=== PATIENT | female | born 1955 | race Caucasian/White ===

== ENCOUNTER 2022-01-28 16:15 | Outpatient (REF) | payer MEDICARE, MEDICAID, SELFPAY | END 2022-01-28 16:16 | disposition home or self-care (01) | LOC: HO.LNP 16:15 | PROVIDERS: Visit Provider Surgery | DX: S81.802D Unspecified open wound, left lower leg, subsequent encounter (principal) | CPT/HCPCS: 87071; 87077; 87186; 87205 ==

== ENCOUNTER 2022-09-09 14:51 | Inpatient (IN) | payer MEDICARE, MEDICAID, SELFPAY ==
--- NOTE | ~2022-09-09 | CT_ITS ---
EXAMINATION: CT ABDOMEN AND PELVIS WITHOUT CONTRAST CLINICAL INFORMATION: Vaginal bleeding COMPARISON: None TECHNIQUE: Multidetector volumetric imaging was performed from the superior aspect of the liver through the pubic symphysis. Sagittal and coronal reformatted images were obtained on the technologist's workstation. This CT examination was performed using dose optimization techniques as appropriate, variously including the following: *Automated exposure control *Adjustment of mA and/or kV according to patient size (this includes techniques or standardized protocols for targeted exams where dose is matched to indication/reason for exam; i.e. extremities or head) *Use of iterative reconstruction technique DLP: 1343 mGy-cm FINDINGS: Visualized lung bases demonstrate mild dependent atelectasis. The liver is mildly enlarged and demonstrates diffusely decreased attenuation suggesting hepatic steatosis. The gallbladder is surgically absent. The spleen is mildly enlarged measuring 16.3 cm in maximum AP dimension. Fatty atrophy of the pancreas. The adrenal glands are unremarkable. Symmetrically sized kidneys. No renal calculi or hydronephrosis of either kidney. The stomach is decompressed. Normal caliber loops of small and large bowel. Normal appendix. Normal caliber abdominal aorta demonstrating mild to moderate atherosclerotic disease. No retroperitoneal lymphadenopathy. Tiny fat-containing umbilical hernia. Soft tissue density within the fat of the left ventral abdominal wall is nonspecific but suspected to be injection related. The bladder is normal in appearance. Uterus is atrophic but otherwise unremarkable in appearance. No gross free pelvic fluid. No inguinal lymphadenopathy. Moderate diffuse degenerative changes of the spine. Severe degenerative changes of the right hip with severe deformity of the femoral head. There are moderate degenerative changes of the left hip. CT/CT abdomen pelvis wo IV con IMPRESSION: 1. Hepatosplenomegaly with diffusely decreased liver attenuation suggesting hepatic steatosis. Correlation with liver enzymes recommended. 2. Severe degenerative changes of the right hip with moderate degenerative changes of the left hip. Fleischner guidelines were followed.
--- NOTE | ~2022-09-09 | US_ITS ---
EXAMINATION: US PELVIS CLINICAL INFORMATION: Postmenopausal bleeding COMPARISON: None TECHNIQUE: Ultrasound of the pelvis is performed using both transabdominal and transvaginal transducers along with Doppler. Transvaginal imaging terminated prematurely. FINDINGS: Uterus: The uterus is anteverted and measures 6.8 x 2.7 x 4.8 cm. The double wall endometrial thickness is 0.9 mm. The uterus is smooth in contour and has normal myometrial echogenicity. No visible fibroid. Adnexa: The left ovary was not identified sonographically. The right ovary was unremarkable in appearance. No adnexal mass.. There is no pelvic ascites or fluid collection. Right ovary measures 1.8 x 1.4 x 1.6 cm. US/US pelvic and transvaginal IMPRESSION: Endometrium measures 0.9 cm in thickness on transabdominal views. Given provided history of postmenopausal bleeding, recommend gynecologic referral and management. Right ovary was unremarkable in appearance. The left ovary was not identified sonographically. No adnexal mass.
[2022-09-09 15:30] VITALS: BP 117/78; BP 98/42; PULSE 82; PULSE 83; RESP 18; TEMP 36.6; O2SAT 94; O2SAT 99; BMI 62.5
[2022-09-09 15:35] VITALS: BP 97/51; PULSE 83; RESP 14; TEMP 36.4; O2SAT 96
--- NOTE | 2022-09-09 15:45 | ED.FEMALEGU ---
HPI - Female Genitourinary General Chief complaint: Urogenital-Female Stated complaint: DIZZY,VAGINAL BLEEDING Time Seen by Provider: 09/09/22 15:16 Source: patient and EMS Mode of arrival: EMS Limitations: other (Poor historian, memory issues) History of Present Illness HPI Narrative: Patient comes in the emergency room from short-term rehab. The staff reported that they noticed that the patient had vaginal bleeding versus rectal bleeding. Patient states that she is asymptomatic. Patient states that she did not notice any vaginal or rectal blood. However, the staff at the nursing facility reported seeing blood in the patient's depends. Related Data Home Medications Medication Instructions Recorded Confirmed Lactobacillus 1 cap PO BID 09/09/22 09/09/22 acidophilus-Bifidobac.animalis 32 billion cell capsule (Probizen) acetaminophen 325 mg tablet 650 mg PO Q4H PRN pain/fever 09/09/22 09/09/22 acetaminophen 650 mg rectal 650 mg WV Q4H PRN pain/fever 09/09/22 09/09/22 suppository biotin 1,000 mcg chewable tablet 1,000 mcg PO DAILY 09/09/22 09/09/22 bisacodyl 10 mg rectal suppository 10 mg WV Q24H PRN Constipation 09/09/22 09/09/22 cholecalciferol (vitamin D3) 25 25 mcg PO DAILY 09/09/22 09/09/22 mcg (1,000 unit) tablet daptomycin 500 mg intravenous 700 mg IV Q48H 09/09/22 09/09/22 solution diclofenac sodium 75 mg 75 mg PO BID 09/09/22 09/09/22 tablet,delayed release duloxetine 60 mg capsule,delayed 60 mg PO DAILY 09/09/22 09/09/22 release epinephrine 1 mg/mL injection kit 0.3 mg IM Q20M PRN Allergic 09/09/22 09/09/22 Symptoms glucagon 1 mg solution for 1 mg subcut Q20M PRN bs<70 and 09/09/22 09/09/22 injection unresponsive hydromorphone 4 mg tablet 8 mg PO Q4H PRN Pain (Scale Score 09/09/22 09/09/22 7-10) indapamide 1.25 mg tablet 1 tab PO DAILY 09/09/22 09/09/22 lactulose 10 gram/15 mL oral 20 g PO Q24H PRN Constipation 09/09/22 09/09/22 solution levothyroxine 175 mcg tablet 175 mcg PO SUMOTUWETHFR@0630 09/09/22 09/09/22 levothyroxine 175 mcg tablet 262.5 mcg PO SA@0630 09/09/22 09/09/22 magnesium hydroxide 400 mg/5 mL 30 ml PO Q24H PRN Constipation 09/09/22 09/09/22 oral suspension (Milk of Magnesia) magnesium oxide 400 mg PO BEDTIME 09/09/22 09/09/22 meclizine 25 mg tablet 25 mg PO BID PRN Nausea And 09/09/22 09/09/22 Vomiting multivitamin 1 tab PO DAILY 09/09/22 09/09/22 naloxone 4 mg/actuation nasal spray 4 mg intranasal Q3M PRN overdose 09/09/22 09/09/22 nystatin 100,000 unit/gram topical 1 appl topical BID 09/09/22 09/09/22 powder oxybutynin chloride 5 mg tablet 5 mg PO BID 09/09/22 09/09/22 potassium chloride 20 mEq 20 meq PO DAILY 09/09/22 09/09/22 tablet,extended release pravastatin 40 mg tablet 40 mg PO DAILY 09/09/22 09/09/22 tizanidine 2 mg tablet 2 mg PO TID 09/09/22 09/09/22 triamcinolone acetonide 0.1 % 1 appl topical BID PRN eczema 09/09/22 09/09/22 topical cream Allergies Allergy/AdvReac Type Severity Reaction Status Date / Time penicillin V Allergy Unknown hives on Verified 09/09/22 16:49 hands and feeet, hives Penicillins [PENICILLINS] Allergy Unknown HIVES Verified 09/09/22 16:49 Sulfa (Sulfonamide Allergy Unknown RASH, Verified 09/09/22 16:49 Antibiotics) itching [SULFA (SULFONAMIDE ANTIBIOTICS)] bee sting Allergy Unknown anaphylaxis Uncoded 09/09/22 16:49 Review of Systems Review of Systems: Constitutional : No Weight loss, No Fever, No Chills, No Night Sweats, No Fatigue, No Malaise ENT/Mouth : No Hearing loss, No Ear Pain, No Nasal Congestion, No Sinus Pain, No Hoarseness, No sore throat, No Rhinorrhea, No Swallowing Difficulty Eyes: No Eye Pain, No Swelling, No Redness, No Foreign Body, No Discharge, No Vision Changes Cardiovascular : No Chest Pain, No SOB, No Dyspnea on Exertion, No Orthopnea, No Edema, No Palpitations Respiratory : No Cough, No Sputum, No Wheezing, No Smoke Exposure, No Dyspnea Gastrointestinal : No Nausea, No Vomiting, No Diarrhea, No Constipation, No abdominal Pain, No Hematochezia, No Melena Genitourinary : Complaining possible vaginal bleeding versus rectal bleeding, No Dysuria, No Urinary Frequency, No Hematuria, No Urinary Incontinence, No Urgency, No Flank Pain, No Urinary Flow Changes, No Hesitancy Musculoskeletal : Complaining of chronic left knee pain, recovering from a stomatitis, complaining of a skin ulcer in the left calf, No Myalgias, No Joint Swelling Skin : No Skin Lesions, No rash Neuro : No Weakness, No Numbness, No Paresthesias, No Loss of Consciousness, No Dizziness, No Headache Psych : No Anxiety/Panic, No Depression, No SI/HI/AH/VH, No Social Issues, Heme/Lymph: No Bruising, No Bleeding,No Lymphadenopathy Endocrine : No Polyuria, No Polydipsia, No Temperature Intolerance [facility] Social History Social History Advance Directives: No Advance Directives Information Provided: No Physical Exam Vital Signs: Vital Signs: Last Vital Signs Temp 99.1 F 09/09/22 22:00 Pulse 84 09/09/22 22:00 Resp 16 09/09/22 22:00 BP 114/60 09/09/22 22:00 Pulse Ox 97 09/09/22 22:00 O2 Del Method 09/09/22 22:00 BMI result Body Mass Index 62.5 Const: Other: Appearance: Alert. Oriented X3. No acute distress. Morbidly obese Eyes: Pupils equal, round and reactive to light. ENT: Pharynx normal. Neck: Normal inspection. Neck supple. No lymph nodes noted. No crepitus CVS: Normal heart rate and rhythm. Pulses normal. Normal S1 and S2 Respiratory: No respiratory distress. Breath sounds normal. No Wheezing. No rales : Difficult exam due to patient's body habitus and also patient is unable to flex her knees for proper exam. Patient seems to have a small external laceration in the vulva, mild bleeding. Abdomen: Soft and nontender. No rigidity. No distention. Skin: Skin warm and dry. Patient has a healing wound in the lateral aspect of the left knee and also posteriorly on the left calf, which is chronic. Patient has candidiasis in the skin folds in the abdomen Extremities: No lower extremity edema. No Lacerations. No Rash Neuro: Oriented X 3. No motor deficit. No sensory deficit. Moving all extremities. No slurred speech. CN 2 through 12 grossly intact Psych: calm, cooperative, normal affect Course Course Course Narrative: We attempted cleaning the patient very well for physical exam. Seems that the bleeding is coming from the vulvar area. He was very difficult to insert a speculum for a proper pelvic exam, difficult due to patient's body habitus and physical limitations. Ultrasound, transvaginal and pelvic pending Guaia test was positive. Patient's H&H is stable, per previous labs, on September 01, hemoglobin was 10, which seems to be the patient's baseline. Also, patient has acute on chronic renal failure. Labs from September 01 show a creatinine of 3.52, today is 6.63 with a BUN of 115. Patient getting IV fluids. I discussed the patient with Dr. Haley, he will be consulted in the morning. The patient's occult blood test was also positive. Possible contaminant although we attempted to clean the patient thoroughly versus internal hemorrhoids, possible GI in the morning Patient does not seem to be actively bleeding at this time. H&H stable from baseline which is 10. Blood pressure stable. I discussed the patient with Dr. Sprague, pt being admitted MDM - Female Genitourinary Lab Data Result diagrams: 09/09/22 16:32 09/09/22 16:32 Labs: Lab Results 09/09/22 09/09/22 09/09/22 Range/Units 16:32 16:32 16:32 WBC 10.1 (4.8-10.8) X10*3/uL RBC 3.48 L (4.20-5.50) X10*6/uL Hgb 9.5 L (12.0-16.0) g/dl Hct 29.3 L (37.0-47.0) % MCV 84.2 (80.0-98.0) fL MCH 27.3 (27.0-33.0) pg MCHC 32.4 (31.0-35.0) g/dl RDW 16.8 H (11.0-16.0) % Plt Count 238 (160-400) X10*3/uL MPV 9.5 (9.4-12.3) fL Immature Gran % (Auto) 0.4 (0.0-0.4) % Neut % (Auto) 69.2 (45-73) % Lymph % (Auto) 12.4 L (20-40) % [place] % (Auto) 8.0 (2-11) % Eos % (Auto) 9.4 H (0-4) % Baso % (Auto) 0.6 (0-2) % Lymph # (Auto) 1.3 (1.2-4.9) X10*3/uL [place] # (Auto) 0.8 (0.1-1.2) X10*3/uL Eos # (Auto) 1.0 H (0.0-0.4) X10*3/uL Baso # (Auto) 0.1 (0.0-0.2) X10*3/uL Abs Immat Gran (auto) 0.04 H (0.00-0.03) X10*3/uL Absolute Neuts (auto) 7.0 (2.0-8.3) x10*3/uL Absolute Nucleated RBC 0.000 (0.0-0.012) X10*3/uL Nucleated RBC % (auto) 0.0 (0.0-0.2) /100WBC Sodium 130 L (135-145) mmol/L Potassium 4.1 (3.3-5.1) mmol/L Chloride 79 L (96-108) mmol/L Carbon Dioxide 29 (22-29) mmol/L Anion Gap 26 H (12-20) BUN 115 H (9-16) mg/dL Creatinine 6.63 H* (0.5-1.4) mg/dL Estim Creat Clear Calc 11.8 Estimated GFR 6 Random Glucose 97 (60-115) mg/dL Lactic Acid 2.0 (0.5-2.0) mmol/L Calcium 8.9 (8.4-10.2) mg/dL Total Bilirubin 1.4 H (0.0-1.0) mg/dL Direct Bilirubin 0.8 H (0.0-0.5) mg/dL AST 17 (5-31) U/L ALT 34 H (0-31) U/L Alkaline Phosphatase 181 H (39-117) U/L Total Protein 7.1 (6.5-8.0) g/dL Albumin 2.9 L (3.5-5.0) g/dL Stool Occult Blood (NEGATIVE) COVID-19 (LETTY) (Negative) COVID-19 Clin Com 09/09/22 09/09/22 Range/Units 16:33 17:55 WBC (4.8-10.8) X10*3/uL RBC (4.20-5.50) X10*6/uL Hgb (12.0-16.0) g/dl Hct (37.0-47.0) % MCV (80.0-98.0) fL MCH (27.0-33.0) pg MCHC (31.0-35.0) g/dl RDW (11.0-16.0) % Plt Count (160-400) X10*3/uL MPV (9.4-12.3) fL Immature Gran % (Auto) (0.0-0.4) % Neut % (Auto) (45-73) % Lymph % (Auto) (20-40) % [place] % (Auto) (2-11) % Eos % (Auto) (0-4) % Baso % (Auto) (0-2) % Lymph # (Auto) (1.2-4.9) X10*3/uL [place] # (Auto) (0.1-1.2) X10*3/uL Eos # (Auto) (0.0-0.4) X10*3/uL Baso # (Auto) (0.0-0.2) X10*3/uL Abs Immat Gran (auto) (0.00-0.03) X10*3/uL Absolute Neuts (auto) (2.0-8.3) x10*3/uL Absolute Nucleated RBC (0.0-0.012) X10*3/uL Nucleated RBC % (auto) (0.0-0.2) /100WBC Sodium (135-145) mmol/L Potassium (3.3-5.1) mmol/L Chloride (96-108) mmol/L Carbon Dioxide (22-29) mmol/L Anion Gap (12-20) BUN (9-16) mg/dL Creatinine (0.5-1.4) mg/dL Estim Creat Clear Calc Estimated GFR Random Glucose (60-115) mg/dL Lactic Acid (0.5-2.0) mmol/L Calcium (8.4-10.2) mg/dL Total Bilirubin (0.0-1.0) mg/dL Direct Bilirubin (0.0-0.5) mg/dL AST (5-31) U/L ALT (0-31) U/L Alkaline Phosphatase (39-117) U/L Total Protein (6.5-8.0) g/dL Albumin (3.5-5.0) g/dL Stool Occult Blood POSITIVE (NEGATIVE) COVID-19 (LETTY) Negative (Negative) COVID-19 Clin Com See Note Discharge Plan Discharge Clinical Impression: Acute kidney injury superimposed on CKD, Vaginal bleeding Patient Disposition: Admitted As Inpatient
[2022-09-09 16:36] VITALS: BP 87/38; PULSE 75; RESP 18; TEMP 36.3; O2SAT 98
[2022-09-09 16:41] LABS: Basophils Absolute Auto 0.1 X10*3/uL (0.0-0.2); Basophils Percent Auto 0.6 % (0-2); Eosinophils Percent Auto 9.4 % (0-4); Hematocrit 29.3 % (37.0-47.0); Hemoglobin 9.5 g/dl (12.0-16.0); Imm Gran Abs Auto 0.04 X10*3/uL (0.00-0.03); Imm Gran Pct Auto 0.4 % (0.0-0.4); Lymphocytes Absolute Auto 1.3 X10*3/uL (1.2-4.9); Lymphocytes Percent Auto 12.4 % (20-40); MANUAL DIFF FLAG NO; Mean Corpuscular HGB Conc 32.4 g/dl (31.0-35.0); Mean Corpuscular Hemoglobin 27.3 pg (27.0-33.0); Mean Corpuscular Volume 84.2 fL (80.0-98.0); Mean Platelet Volume 9.5 fL (9.4-12.3); Monocytes Absolute Auto 0.8 X10*3/uL (0.1-1.2); Neutrophils Percent Auto 69.2 % (45-73); Platelet Count 238 X10*3/uL (160-400); Red Blood Count 3.48 X10*6/uL (4.20-5.50); Red Cell Distribution Width 16.8 % (11.0-16.0); White Blood Count 10.1 X10*3/uL (4.8-10.8)
[2022-09-09 16:57] LABS: COVID-19 Test Negative (Negative); IDNOW Serial# 16C4AD1C
[2022-09-09 17:06] LABS: Alanine Aminotransferase 34 U/L (0-31); Albumin Level 2.9 g/dL (3.5-5.0); Alkaline Phosphatase 181 U/L (39-117); Anion Gap 26 (12-20); Aspartate Amino Transferase 17 U/L (5-31); Bilirubin Direct 0.8 mg/dL (0.0-0.5); Bilirubin Total 1.4 mg/dL (0.0-1.0); Blood Urea Nitrogen 115 mg/dL (9-16); Calcium 8.9 mg/dL (8.4-10.2); Carbon Dioxide 29 mmol/L (22-29); Chloride 79 mmol/L (96-108); Creatinine Clr Calc Pharmacy 11.8; Estimated Glomerular Filt Rate 6; Glucose Random 97 mg/dL (60-115); Potassium 4.1 mmol/L (3.3-5.1); Sodium 130 mmol/L (135-145); Total Protein 7.1 g/dL (6.5-8.0)
--- NOTE | 2022-09-09 17:15 | PC.NURSE ---
pt was change into hospital attire ,extra bed linen remove ,pt is resting quietly in bed .
[2022-09-09] MEDS: 0.9 % Sodium Chloride 2,000 ML 999 ML IVCONT (17:41)
[2022-09-09 18:02] LABS: OBS Int Ctl Valid YES; OBS1 POSITIVE (NEGATIVE)
--- NOTE | 2022-09-09 20:56 | PHA.MEDREC ---
Pharmacy Consult ? Medication Reconciliation Pharmacy has completed the medication reconciliation.List from facility
[2022-09-09 21:45] VITALS: BP 99/40; PULSE 80; RESP 20; O2SAT 99
[2022-09-09 22:00] VITALS: BP 114/60; PULSE 84; RESP 16; TEMP 37.3; O2SAT 97
--- NOTE | 2022-09-09 22:23 | PC.NURSE ---
PATIENT NOT ABLE TO GIVE URINE SAMPLE ,DUKE GARCIA IS AWARE ,PATIENT TINA AREA WAS CLEAN AND CLEAN PUREWICK APPLY ,PT WOUNDS ON ABD ,LEFT LEG AND LEFT KNEE WAS CLEAN AND DRESSING APPLIED
--- NOTE | 2022-09-09 23:30 | PM.IMHP ---
History of Present Illness Date of Service: 09/09/22 Chief Complaint: bleeding from vagina 67-year-old female with past medical history of acute on chronic osteomyelitis currently on daptomycin, hypertension, hypothyroidism, mood disorder, who comes from long-term for evaluation of bleeding. Patient reports that she was discharged from [facility] after being managed for osteomyelitis to rehab to complete her IV antibiotics as well as give physical therapy as she has been very weak and nonambulatory due to prolonged hospital stay. She reports that she was complaining of significant constipation and therefore she was given lactulose. She states that after given lactulose she had multiple episodes of incontinence, she is wheelchair bound therefore she started having stools while she is sitting in her wheelchair, she was covered in feces all the time, the nurses were trying to wipe her and then there was notice of blood. She reports that she felt that the bleeding was from the vagina, she is unaware of any blood per rectum. She reports abdominal cramping that has improved 2 days after receiving the lactulose. She has had nausea, low appetite. She has not been drinking and eating well for the past 2 days. She also reports that ever since they discharged her from [facility] they gave her 60 mg of Lasix b.i.d. for management of lower extremity edema. She reports no history of CHF. She has been taking 60 mg of Lasix b.i.d. for the past several days. At this time she denies any headache, no change in vision, no chest pain, no urinary symptoms, no lower extremity edema. On arrival to the ED patient hemodynamically stable with slightly low BP P of 90 8/42, improved with IV fluids, labs are significant for WBC count of 9.4, hemoglobin of 9.6 with a baseline around 10 and 29 in August from results obtained from long-term, creatinine of 6.63 with a baseline around 3.5, - of note patient reports no history of CKD ALT of 34, alk-phos of 181, stool occult positive Patient's pelvic transvaginal ultrasound shows endometrial measure of 0.9 cm in thickness, Pelvic abdominal CT shows hepato splenomegaly, otherwise no significant abnormality Review of Systems Review of Systems: Yes all other systems are reviewed and are negative [facility] Medical History (Updated 09/10/22 @ 06:44 by Celeste Sprague MD) JING inhibitor-aggravated angioedema Hypertension Hypothyroidism Morbid obesity Osteomyelitis Family History (Updated 09/10/22 @ 06:40 by Celeste Sprague MD) Other No family history of coronary artery disease Surgical History (Updated 09/10/22 @ 06:43 by Celeste Sprague MD) No pertinent past surgical history Social History (Updated 09/10/22 @ 06:43 by Celeste Sprague MD) Alcohol intake: former Patient Tobacco Use Status: Never used Tobacco Use of substances other than those prescribed or required for medical reasons: No Advance Directives: No Advance Directives Information Provided: No Meds Allergies Allergy/AdvReac Type Severity Reaction Status Date / Time penicillin V Allergy Unknown hives on Verified 09/09/22 16:49 hands and feeet, hives Penicillins [PENICILLINS] Allergy Unknown HIVES Verified 09/09/22 16:49 Sulfa (Sulfonamide Allergy Unknown RASH, Verified 09/09/22 16:49 Antibiotics) itching [SULFA (SULFONAMIDE ANTIBIOTICS)] bee sting Allergy Unknown anaphylaxis Uncoded 09/09/22 16:49 Active Medications: Current Medications Pharmacy Consult (Consult Rx Perform Med Rec) 1 each MISCELLANE ONCE PRN PRN Reason: Consult order Home Medications Medication Instructions Recorded Confirmed Last Taken Type Lactobacillus 1 cap PO BID 09/09/22 09/09/22 Unknown History acidophilus-Bifidobac.animalis 32 billion cell capsule (Probizen) acetaminophen 325 mg tablet 650 mg PO Q4H PRN pain/fever 09/09/22 09/09/22 Unknown History acetaminophen 650 mg rectal 650 mg LA Q4H PRN pain/fever 09/09/22 09/09/22 Unknown History suppository biotin 1,000 mcg chewable tablet 1,000 mcg PO DAILY 09/09/22 09/09/22 Unknown History bisacodyl 10 mg rectal suppository 10 mg LA Q24H PRN Constipation 09/09/22 09/09/22 Unknown History cholecalciferol (vitamin D3) 25 25 mcg PO DAILY 09/09/22 09/09/22 Unknown History mcg (1,000 unit) tablet daptomycin 500 mg intravenous 700 mg IV Q48H 09/09/22 09/09/22 Unknown History solution diclofenac sodium 75 mg 75 mg PO BID 09/09/22 09/09/22 Unknown History tablet,delayed release duloxetine 60 mg capsule,delayed 60 mg PO DAILY 09/09/22 09/09/22 Unknown History release epinephrine 1 mg/mL injection kit 0.3 mg IM Q20M PRN Allergic 09/09/22 09/09/22 Unknown History Symptoms glucagon 1 mg solution for 1 mg subcut Q20M PRN bs<70 and 09/09/22 09/09/22 Unknown History injection unresponsive hydromorphone 4 mg tablet 8 mg PO Q4H PRN Pain (Scale Score 09/09/22 09/09/22 Unknown History 7-10) indapamide 1.25 mg tablet 1 tab PO DAILY 09/09/22 09/09/22 Unknown History lactulose 10 gram/15 mL oral 20 g PO Q24H PRN Constipation 09/09/22 09/09/22 Unknown History solution levothyroxine 175 mcg tablet 175 mcg PO SUMOTUWETHFR@0630 09/09/22 09/09/22 Unknown History levothyroxine 175 mcg tablet 262.5 mcg PO SA@0630 09/09/22 09/09/22 Unknown History magnesium hydroxide 400 mg/5 mL 30 ml PO Q24H PRN Constipation 09/09/22 09/09/22 Unknown History oral suspension (Milk of Magnesia) magnesium oxide 400 mg PO BEDTIME 09/09/22 09/09/22 Unknown History meclizine 25 mg tablet 25 mg PO BID PRN Nausea And 09/09/22 09/09/22 Unknown History Vomiting multivitamin 1 tab PO DAILY 09/09/22 09/09/22 Unknown History naloxone 4 mg/actuation nasal spray 4 mg intranasal Q3M PRN overdose 09/09/22 09/09/22 Unknown History nystatin 100,000 unit/gram topical 1 appl topical BID 09/09/22 09/09/22 Unknown History powder oxybutynin chloride 5 mg tablet 5 mg PO BID 09/09/22 09/09/22 Unknown History potassium chloride 20 mEq 20 meq PO DAILY 09/09/22 09/09/22 Unknown History tablet,extended release pravastatin 40 mg tablet 40 mg PO DAILY 09/09/22 09/09/22 Unknown History tizanidine 2 mg tablet 2 mg PO TID 09/09/22 09/09/22 Unknown History triamcinolone acetonide 0.1 % 1 appl topical BID PRN eczema 09/09/22 09/09/22 Unknown History topical cream Physical Exam Vital Signs and Narrative: Vital Signs: Last Vital Signs Temp 99.1 F 09/09/22 22:00 Pulse 84 09/09/22 22:00 Resp 16 09/09/22 22:00 BP 114/60 09/09/22 22:00 Pulse Ox 97 09/09/22 22:00 O2 Del Method 09/09/22 22:00 BMI result Body Mass Index 62.5 Const: Other: Significant obesity General: cooperative and no acute distress Orientation/consciousness: patient oriented x3 Eyes: General: appearance normal, both eyes and all related structures Resp: Effort & Inspection: normal respiratory effort Auscultation: clear to auscultation bilaterally Cardio: Rate: regular rate Rhythm: regular rhythm GI: Other: Abdomen is tender on palpation, some guarding, no rebound Palpation (GI): Soft to palpation Auscultation: normal bowel sounds Skin: Other: Has skin changes of venous insufficiency in lower extremities and evidence of fungal infection under skin folds Left lower extremity covered in dressing the site of osteomyelitis Neuro: General: patient oriented x3 Cognition (Neuro): normal cognition Extrem: General: Yes normal to inspection and Yes no pedal edema Results Labs CBC and Chem 7: 09/09/22 16:32 09/09/22 16:32 Labs: Laboratory Results - last 24 hr 09/09/22 09/09/22 09/09/22 16:32 16:32 16:32 MCV 84.2 MCH 27.3 MCHC 32.4 RDW 16.8 H Plt Count 238 MPV 9.5 Immature Gran % (Auto) 0.4 Neut % (Auto) 69.2 Lymph % (Auto) 12.4 L [place] % (Auto) 8.0 Eos % (Auto) 9.4 H Baso % (Auto) 0.6 Lymph # (Auto) 1.3 [place] # (Auto) 0.8 Eos # (Auto) 1.0 H Baso # (Auto) 0.1 Abs Immat Gran (auto) 0.04 H Absolute Neuts (auto) 7.0 Absolute Nucleated RBC 0.000 Nucleated RBC % (auto) 0.0 Anion Gap 26 H Estim Creat Clear Calc 11.8 Estimated GFR 6 Random Glucose 97 Lactic Acid 2.0 Calcium 8.9 Total Bilirubin 1.4 H Direct Bilirubin 0.8 H AST 17 ALT 34 H Alkaline Phosphatase 181 H Total Protein 7.1 Albumin 2.9 L Stool Occult Blood COVID-19 (LETTY) COVID-19 Clin Com 09/09/22 09/09/22 16:33 17:55 MCV MCH MCHC RDW Plt Count MPV Immature Gran % (Auto) Neut % (Auto) Lymph % (Auto) [place] % (Auto) Eos % (Auto) Baso % (Auto) Lymph # (Auto) [place] # (Auto) Eos # (Auto) Baso # (Auto) Abs Immat Gran (auto) Absolute Neuts (auto) Absolute Nucleated RBC Nucleated RBC % (auto) Anion Gap Estim Creat Clear Calc Estimated GFR Random Glucose Lactic Acid Calcium Total Bilirubin Direct Bilirubin AST ALT Alkaline Phosphatase Total Protein Albumin Stool Occult Blood POSITIVE COVID-19 (LETTY) Negative COVID-19 Clin Com See Note Imaging Radiologist's Impressions: Impressions Abdomen/Pelvis CT 09/09/22 18:45 IMPRESSION: 1. Hepatosplenomegaly with diffusely decreased liver attenuation suggesting hepatic steatosis. Correlation with liver enzymes recommended. 2. Severe degenerative changes of the right hip with moderate degenerative changes of the left hip. Fleischner guidelines were followed. Pelvic/Transvag US 09/09/22 21:01 IMPRESSION: Endometrium measures 0.9 cm in thickness on transabdominal views. Given provided history of postmenopausal bleeding, recommend gynecologic referral and management. Right ovary was unremarkable in appearance. The left ovary was not identified sonographically. No adnexal mass. Assessment and Plan (1) Acute kidney injury superimposed on CKD: Status: Acute (2) Vaginal bleeding: Status: Acute (3) Osteomyelitis: Status: Acute (4) Hypothyroidism: Status: Inactive (5) Positive occult stool blood test: Status: Acute Plan 67-year-old female with past medical history of osteomyelitis currently on IV antibiotics, hypertension, hypothyroidism, morbid obesity, who presents to the hospital with complaints of vaginal bleeding found to have acute kidney injury # acute kidney injury - patient reports no underlying CKD - reports that has been taking Lasix 60 mg twice a day for lower extremity edema - likely secondary to dehydration/furosemide use - will treat with IV fluids - hold nephrotoxic meds - follow bmp closely # vaginal bleeding - consult Ob Gyne - monitor CBC - hemoglobin stable # positive occult stool blood test - hemoglobin slightly lower than her baseline but stable - patient hemodynamically stable - will consult GI # osteomyelitis - being treated for acute osteomyelitis with daptomycin - will continue - wound care - infectious disease consulted # hypothyroidism - continue levothyroxine # morbid obesity - consider bariatric evaluation outpatient DVT prophylaxis: SCDs in the setting of positive GI as well as vaginal bleeding Given patient's kidney injury requiring IV fluids, patient required minimum 2 night hospital in-patient stay for further management and evaluation Quality Stroke Does the patient have a stroke diagnosis?: No VTE Prior VTE?: No VTE Risk Level:: Medical - moderate - high VTE Device Contraindication: N/A - Device Ordered VTE Drug Contraindication: Treatment Not Indicated
[2022-09-10] MEDS: 0.9 % Sodium Chloride 1,000 ML 100 ML IVCONT ×2 (00:38→11:06)
[2022-09-10 00:51] VITALS: BP 123/48; PULSE 78; RESP 18; O2SAT 98
--- NOTE | 2022-09-10 01:40 | PC.NURSE ---
pt resting comfortably on stretcher - iv fluids running through port. pt has no current complaints, in no apparent distress. call sy within reach
--- NOTE | 2022-09-10 02:46 | PC.NURSE ---
Patient incontinent of urine and small smear of stool. Maylin care provided. Pure wick in place. Patient boosted and repositioned for comfort.
[2022-09-10] MEDS: oxyCODONE HCl Immed Release 5 MG TABLET PO ×3 (04:21→23:01)
[2022-09-10 06:28] LABS: MANUAL DIFF FLAG NO
[2022-09-10 06:34] LABS: Basophils Absolute Auto 0.1 X10*3/uL (0.0-0.2); Basophils Percent Auto 0.6 % (0-2); Eosinophils Absolute Auto 0.6 X10*3/uL (0.0-0.4); Eosinophils Percent Auto 6.7 % (0-4); Hematocrit 29.8 % (37.0-47.0); Hemoglobin 9.6 g/dl (12.0-16.0); Imm Gran Abs Auto 0.05 X10*3/uL (0.00-0.03); Imm Gran Pct Auto 0.5 % (0.0-0.4); Lymphocytes Absolute Auto 1.1 X10*3/uL (1.2-4.9); Lymphocytes Percent Auto 12.1 % (20-40); Mean Corpuscular HGB Conc 32.2 g/dl (31.0-35.0); Mean Corpuscular Hemoglobin 27.4 pg (27.0-33.0); Mean Corpuscular Volume 84.9 fL (80.0-98.0); Mean Platelet Volume 9.6 fL (9.4-12.3); Monocytes Absolute Auto 0.6 X10*3/uL (0.1-1.2); Monocytes Percent Auto 6.1 % (2-11); Platelet Count 230 X10*3/uL (160-400); Red Blood Count 3.51 X10*6/uL (4.20-5.50); White Blood Count 9.4 X10*3/uL (4.8-10.8)
--- NOTE | 2022-09-10 07:11 | P.CNGI_ITS ---
History of Present Illness Data of Consult Service Date: 09/10/22 Requesting physician: Celeste Sprague Primary Care Provider: Unknown Physician HPI Reason for consult: anemia, heme positive stools 67 YF with history of acute on chronic osteomyelitis currently on daptomycin, hypertension, hypothyroidism, mood disorder, transferred to [facility] ED on 09/09/22 from a [facility] for evaluation of bleeding.? Patient reported that she was discharged from [facility] after being managed for osteomyelitis to rehab to complete her IV antibiotics and physical therapy as she has been very weak and non-ambulatory due to prolonged hospital stay.? She reported that she had no BM for 2 weeks and was treated with lactulose for constipation. Pt is wheelchair bound and started having stools while she was sitting in her wheelchair and was covered in feces all the time, the nurses were trying to wipe her and noted some blood.? She reported that she felt that the bleeding was from the vagina, she is unaware of any blood per rectum.? She noted abdominal cramping that has improved 2 days after receiving the lactulose.? She has had nausea and decreased appetite and has not been drinking and eating well for the past 2 days.? She complains of heartburn, mouth sores and throat pain on swallowing. She reports wt loos of 18 lbs. She also reported that since discharge from [facility] she was given 60 mg of Lasix b.i.d. for management of lower extremity edema for the past several days no history of CHF. Pt denied headache, no change in vision, no chest pain, no urinary symptoms, no lower extremity edema. Pt denies a hx of cardiac or pulmonary problems, loud snoring or sleep apnea. She denies smoking or ETOH abuse. She denies having an EGD or a colonoscopy in the past. Pt denies known FH of colon polyps or GI malignancy. Pt is and lives with her and a brother. She has no children. 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 On arrival to the ED patient hemodynamically stable with slightly low BP P of 90 8/42, improved with IV fluids, labs are significant for WBC count of 9.4, hemoglobin of 9.6 with a baseline around 10 and 29 in August from results obtained from [facility], creatinine of 6.63 with a baseline around 3.5, - of note patient reports no history of CKD ALT of 34, alk-phos of 181, stool occult positive 09/09/[address] SCAN SHOWED: 1.? Hepatosplenomegaly with diffusely decreased liver attenuation suggesting hepatic steatosis. Correlation with liver enzymes recommended. 2. ? Severe degenerative changes of the right hip with moderate degenerative changes of the left hip. Patient's pelvic transvaginal ultrasound shows endometrial measure of 0.9 cm in thickness, Patient was admitted for further management. Review of Systems Review of Systems: Yes all other systems are reviewed and are negative PMFSH Past Medical History Medical History JING inhibitor-aggravated angioedema Hypertension Hypothyroidism Morbid obesity Osteomyelitis Family History Family History Other No family history of coronary artery disease Surgical History Surgical History No pertinent past surgical history Social History Social History (Updated 09/11/22 @ 19:52 by Ronald Kraft RN) Household Members: Spouse Housing: House Do you presently have visiting nurse or other home services: Yes Alcohol intake: former Patient Tobacco Use Status: Never used Tobacco Smoked in Last 30 Days: No service: No Current occupational status: retired Meds Allergies Allergy/AdvReac Type Severity Reaction Status Date / Time penicillin V Allergy Unknown hives on Verified 09/09/22 16:49 hands and feeet, hives Penicillins [PENICILLINS] Allergy Unknown HIVES Verified 09/09/22 16:49 Sulfa (Sulfonamide Allergy Unknown RASH, Verified 09/09/22 16:49 Antibiotics) itching [SULFA (SULFONAMIDE ANTIBIOTICS)] bee sting Allergy Unknown anaphylaxis Uncoded 09/09/22 16:49 Active Medications: Current Medications Acetaminophen (Acetaminophen 325 Mg Tablet) 650 mg PO Q6H PRN PRN Reason: Pain, Mild (Pain Scale 1-3) Bisacodyl (Bisacodyl 10 Mg Supp.Rect) [address] Q24H PRN PRN Reason: Constipation Daptomycin (Daptomycin 500 Mg/10 Ml Vial) 700 mg IV Q48H [facility] Diclofenac Sodium (Diclofenac Sodium Delayed Rel 75 Mg Tablet.Dr) 75 mg PO BID [facility] Docusate Sodium (Docusate Sodium 100 Mg Capsule) 100 mg PO DAILY PRN PRN Reason: Constipation Duloxetine HCl (Duloxetine Hcl 60 Mg Capsule.Dr) 60 mg PO DAILY [facility] Glucagon (Glucagon,Human Recombinant 1 Mg/Ml Vial) 1 mg SUBCUT Q20M PRN PRN Reason: bs<70 and unresponsive Hydromorphone HCl (Hydromorphone Hcl 1 Mg/Ml Syringe) 1 mg IVPUSH Q4H PRN; Protocol PRN Reason: Pain, Severe (Pain Scale 7-10) Hydromorphone HCl (Hydromorphone Hcl 4 Mg Tablet) 8 mg PO Q4H PRN PRN Reason: Pain (Scale Score 7-10) Sodium Chloride (Ns) 1,000 mls @ 100 mls/hr IVCONT .Q10H [facility] Last Admin: 09/10/22 00:38 Dose: 100 mls/hr Levothyroxine Sodium (Levothyroxine Sodium 175 Mcg Tablet) 175 mcg PO SUM OTUWETHFR@0630 [facility] Levothyroxine Sodium (Levothyroxine Sodium 175 Mcg Tablet) 262.5 mcg PO SA@0630 [facility] Magnesium Oxide (Magnesium Oxide 400 Mg Tablet) 400 mg PO BEDTIME [facility] Meclizine HCl (Meclizine Hcl 25 Mg Tablet) 25 mg PO BID PRN PRN Reason: Nausea And Vomiting Multivitamins/Vitamin C (Multivitamin Tablet) 1 tab PO DAILY [facility] Non-Formulary Medication (Epinephrine) 0.3 mg IM Q20M PRN PRN Reason: Allergic Symptoms Non-Formulary Medication (L. Acidophilus/Bifid. Animalis [Probizen]) 1 cap PO BID [facility] Nystatin (Nystatin Powder 15 Gm Bottle) 1 appl TOPICAL BID [facility]; Protocol Ondansetron HCl (Ondansetron Hcl 4 Mg/2 Ml Vial) 4 mg IVPUSH Q8H PRN PRN Reason: Nausea and Vomiting Oxybutynin Chloride (Oxybutynin Chloride 5 Mg Tablet) 5 mg PO BID [facility] Oxycodone HCl (Oxycodone Hcl Immed Release 5 Mg Tablet) 5 mg PO Q3H PRN PRN Reason: Pain, Severe (Pain Scale 7-10) Last Admin: 09/10/22 06:38 Dose: 5 mg Pharmacy Consult (Consult Rx Perform Med Rec) 1 each MISCELLANE ONCE PRN PRN Reason: Consult order Potassium Chloride (Potassium Chloride Er 20 Meq Tab.Er.Prt) 20 meq PO DAILY [facility] Pravastatin Sodium (Pravastatin Sodium 40 Mg Tablet) 40 mg PO DAILY [facility] Sodium Chloride (0.9 % Sodium Chloride Flush 3 Ml Syringe) 3 ml IVFLUSH QSHIFT [facility] Last Admin: 09/10/22 01:05 Dose: Not Given Tizanidine HCl (Tizanidine Hcl 4 Mg Tablet) 2 mg PO TID [facility] Triamcinolone Acetonide (Triamcinolone Acet 0.1 % Cream 15 Gm Tube) 1 appl TOPICAL BID PRN; Protocol PRN Reason: eczema Vitamin D (Cholecalciferol (Vitamin D3) 25 Mcg Tablet) 25 mcg PO DAILY [facility] Home Medications Medication Instructions Recorded Confirmed Last Taken Type Lactobacillus 1 cap PO BID 09/09/22 09/09/22 Unknown History acidophilus-Bifidobac.animalis 32 billion cell capsule (Probizen) acetaminophen 325 mg tablet 650 mg PO Q4H PRN pain/fever 09/09/22 09/09/22 Unkno wn History acetaminophen 650 mg rectal [address] Q4H PRN pain/fever 09/09/22 09/09/22 Unknown History suppository biotin 1,000 mcg chewable tablet 1,000 mcg PO DAILY 09/09/22 09/09/22 Unknown History bisacodyl 10 mg rectal suppository [address] Q24H PRN Constipation 09/09/22 09/09/22 Unknown History cholecalciferol (vitamin D3) 25 25 mcg PO DAILY 09/09/22 09/09/22 Unknown History mcg (1,000 unit) tablet daptomycin 500 mg intravenous 700 mg IV Q48H 09/09/22 09/09/22 Unknown History solution diclofenac sodium 75 mg 75 mg PO BID 09/09/22 09/09/22 Unknown History tablet,delayed release duloxetine 60 mg capsule,delayed 60 mg PO DAILY 09/09/22 09/09/22 Unknown History release epinephrine 1 mg/mL injection kit 0.3 mg IM Q20M PRN Allergic 09/09/22 09/09/22 Unknown History Symptoms glucagon 1 mg solution for 1 mg subcut Q20M PRN bs<70 and 09/09/22 09/09/22 Unknown History injection unresponsive hydromorphone 4 mg tablet 8 mg PO Q4H PRN Pain (Scale Score 09/09/22 09/09/22 Unknown History 7-10) indapamide 1.25 mg tablet 1 tab PO DAILY 09/09/22 09/09/22 Unknown History lactulose 10 gram/15 mL oral 20 g PO Q24H PRN Constipation 09/09/22 09/09/22 Unknown History solution levothyroxine 175 mcg tablet 175 mcg PO SUMOTUWETHFR@0630 09/09/22 09/09/22 Unknown History levothyroxine 175 mcg tablet 262.5 mcg PO SA@0630 09/09/22 09/09/22 Unknown History magnesium hydroxide 400 mg/5 mL 30 ml PO Q24H PRN Constipation 09/09/22 09/09/22 Unknown History oral suspension (Milk of Magnesia) magnesium oxide 400 mg PO BEDTIME 09/09/22 09/09/22 Unknown History meclizine 25 mg tablet 25 mg PO BID PRN Nausea And 09/09/22 09/09/22 Unknown History Vomiting multivitamin 1 tab PO DAILY 09/09/22 09/09/22 Unknown History naloxone 4 mg/actuation nasal spray 4 mg intranasal Q3M PRN overdose 09/09/22 09/09/22 Unknown History nystatin 100,000 unit/gram topical 1 appl topical BID 09/09/22 09/09/22 Unknown History powder oxybutynin chloride 5 mg tablet 5 mg PO BID 09/09/22 09/09/22 Unknown History potassium chloride 20 mEq 20 meq PO DAILY 09/09/22 09/09/22 Unknown History tablet,extended release pravastatin 40 mg tablet 40 mg PO DAILY 09/09/22 09/09/22 Unknown History tizanidine 2 mg tablet 2 mg PO TID 09/09/22 09/09/22 Unknown History triamcinolone acetonide 0.1 % 1 appl topical BID PRN eczema 09/09/22 09/09/22 Unknown History topical cream Physical Exam Vital Signs: Vital Signs: Last Vital Signs Temp 99.1 F 09/09/22 22:00 Pulse 78 09/10/22 00:51 Resp 18 09/10/22 00:51 BP 123/48 L 09/10/22 00:51 Pulse Ox 98 09/10/22 00:51 O2 Del Method 09/10/22 00:51 BMI result Body Mass Index 62.5 Const: General: no acute distress; No healthy appearing Nutritional Appearance: obese (morbidly obese) Orientation/consciousness: patient oriented x3 Limitations: no limitations HEENT: Head: Yes normal to inspection Ears: hearing grossly normal bilaterally Mouth: Normal oral and palatal mucosa present Eyes: Sclerae: sclerae normal Pupils: Equal, round and reactive pupils present Neck: Neck: Yes normal visual inspection Chest: Chest palpation & inspection: normal inspection of the chest Resp: Effort & Inspection: normal respiratory effort Auscultation: clear to auscultation bilaterally Cardio: Palpation: normal PMI Rate: regular rate Rhythm: regular rhythm Heart sounds: S1 normal heart sound present, S2 normal heart sound present and no murmurs GI: Inspection: Yes obesity Palpation (GI): Soft to palpation, nontender and No hepatosplenomegaly present Auscultation: normal bowel sounds Rectal Exam - Female: deferred Skin: General skin exam: no rashes or lesions noted Neuro: General: patient oriented x3, gait normal and moves all extremities Cranial nerves: Yes Equal, round and reactive pupils present Psych: Appearance: grossly normal Mental Status: mental status grossly normal Results Labs CBC & Chem 7: 09/13/22 05:48 09/13/22 05:48 Labs: Short CBC 09/09/22 09/10/22 Range/Units 16:32 06:04 WBC 10.1 9.4 (4.8-10.8) X10*3/uL Hgb 9.5 L 9.6 L (12.0-16.0) g/dl Hct 29.3 L 29.8 L (37.0-47.0) % Plt Count 238 230 (160-400) X10*3/uL BMP 09/09/22 16:32 Sodium 130 L Potassium 4.1 Chloride 79 L Carbon Dioxide 29 BUN 115 H Creatinine 6.63 H* Calcium 8.9 Liver Function 09/09/22 Range/Units 16:32 Total Bilirubin 1.4 H (0.0-1.0) mg/dL Direct Bilirubin 0.8 H (0.0-0.5) mg/dL AST 17 (5-31) U/L ALT 34 H (0-31) U/L Alkaline Phosphatase 181 H (39-117) U/L Albumin 2.9 L (3.5-5.0) g/dL Assessment and Plan (1) Positive occult stool blood test: Status: Acute (2) Heartburn: Status: Acute (3) Odynophagia: Status: Acute (4) Hepatic steatosis: Status: Acute Plan 67 YF with history of acute on chronic osteomyelitis currently on daptomycin, hypertension, hypothyroidism, mood disorder, transferred to [facility] ED on 09/09/22 [facility] a [facility] for evaluation of bleeding (pt reports vaginal bleeding).? Pt also complains of heartburn and throat pain on swallowing. Labs showed anemia and stool occult blood was positive - possibly due to colon polyps, AVM or diverticulosis She denies having an EGD or a colonoscopy in the past. Hepatic steatosis on abd CT scan likely related to morbid obesity. RECOMMENDATIONS: 1. Check iron studies, Vitamin B 12 levels - added to am labs 2. Pt advised further evaluation with EGD and colonoscopy. Pt is refusing colonoscopy due to difficulty with prep. She She was reassured that a rectal tube can be placed while she is undergoing the prep. She is willing to think about it. Pt is scheduled for an EGD on 09/13/22. If she agrees to a colonoscopy, she will need to be switched to a liquid diet on 09/12/22 and prepped with Golytely. Both procedures and potential complications were reviewed with the patient. Procedures Date of Service Date of Service: 09/10/22
[2022-09-10 07:47] VITALS: BP 121/62; PULSE 83; RESP 14; TEMP 36.6; O2SAT 96
--- NOTE | 2022-09-10 08:36 | PC.NURSE ---
MECHANICAL ENGINEERING SPECIALIST wanted to come in for an vaginal exam per consult, pt refusing and this RN noted no bleeding from vagina. THis was a one time incident only per patient. MECHANICAL ENGINEERING SPECIALIST will come in and assessment counselor her, will have a MECHANICAL ENGINEERING SPECIALIST stretcher available in case she agrees to the exam.
[2022-09-10 09:43] LABS: Anion Gap 24 (12-20); Blood Urea Nitrogen 107 mg/dL (9-16); Calcium 8.8 mg/dL (8.4-10.2); Carbon Dioxide 31 mmol/L (22-29); Chloride 85 mmol/L (96-108); Estimated Glomerular Filt Rate 7; Glucose Random 97 mg/dL (60-115); Phosphorus 5.7 mg/dL (2.7-4.5); Potassium 3.7 mmol/L (3.3-5.1); Sodium 136 mmol/L (135-145)
--- NOTE | 2022-09-10 10:02 | MHC.CM.PN ---
Addendum entered by Sera Rowe RN 09/10/22 10:19: CORRECTION: IMM WAS PLACED IN EMERGENCY DEPT MEDICAL RECORDS BIN Original Note: PATIENT LVIES WITH SPOUSE/HCP SHE USES A WHEELCHAIR TO MOBILIZE. SHE IS IN FROM [facility]. REFERRAL PLACED TO FOLLOW FOR HER RETURN. PRIOR TO HER STAY AND [facility], SHE HAD DAILY VNA SERVICES THROUGH [facility]. COVID VAX X 4. SHE HAS NOT HAD A FLU SHOT THIS YEAR AND IS OPEN TO RECEIVING IF MD FEELS IT IS APPROPRIATE. IMM 09/10 IN CHART
--- NOTE | 2022-09-10 10:09 | PM.GYNCN ---
RECEIVING SPECIALIST - CN: HPI Data of Consult Consult date: 09/10/22 Requesting Physician: Chicho Reyes MD Primary Care Provider: Unknown Physician Consult Narrative Narrative: I was consulted on Amber Neves who is a 67 year old female for bleeding possible vaginal vs rectal, the patient is not sure. Pelvic ultrasound was done and showed an endometrial thickness of 9 mm otherwise unremarkable cc:: CC: Chicho Reyes MD OB PMF Past Medical History Medical History JING inhibitor-aggravated angioedema Hypertension Hypothyroidism Morbid obesity Osteomyelitis Family History Family History Other No family history of coronary artery disease Surgical History Surgical History No pertinent past surgical history Social History Social History Alcohol intake: former Patient Tobacco Use Status: Never used Tobacco Smoked in Last 30 Days: No Use of substances other than those prescribed or required for medical reasons: No Advance Directives: No Advance Directives Information Provided: No Patient : No service: No Current occupational status: retired Meds Allergies Allergy/AdvReac Type Severity Reaction Status Date / Time penicillin V Allergy Unknown hives on Verified 09/09/22 16:49 hands and feeet, hives Penicillins [PENICILLINS] Allergy Unknown HIVES Verified 09/09/22 16:49 Sulfa (Sulfonamide Allergy Unknown RASH, Verified 09/09/22 16:49 Antibiotics) itching [SULFA (SULFONAMIDE ANTIBIOTICS)] bee sting Allergy Unknown anaphylaxis Uncoded 09/09/22 16:49 Active Medications: Current Medications Acetaminophen (Acetaminophen 325 Mg Tablet) 650 mg PO Q6H PRN PRN Reason: Pain, Mild (Pain Scale 1-3) Bisacodyl (Bisacodyl 10 Mg Supp.Rect) 10 mg ND Q24H PRN PRN Reason: Constipation Diclofenac Sodium (Diclofenac Sodium Delayed Rel 75 Mg Tablet.Dr) 75 mg PO BID [facility] Docusate Sodium (Docusate Sodium 100 Mg Capsule) 100 mg PO DAILY PRN PRN Reason: Constipation Duloxetine HCl (Duloxetine Hcl 60 Mg Capsule.) 60 mg PO DAILY [facility] Glucagon (Glucagon,Human Recombinant 1 Mg/Ml Vial) 1 mg SUBCUT Q20M PRN PRN Reason: bs<70 and unresponsive Hydromorphone HCl (Hydromorphone Hcl 1 Mg/Ml Syringe) 1 mg IVPUSH Q4H PRN; Protocol PRN Reason: Pain, Severe (Pain Scale 7-10) Hydromorphone HCl (Hydromorphone Hcl 4 Mg Tablet) 8 mg PO Q4H PRN PRN Reason: Pain (Scale Score 7-10) Sodium Chloride (Ns) 1,000 mls @ 100 mls/hr IVCONT .Q10H [facility] Last Admin: 09/10/22 00:38 Dose: 100 mls/hr Daptomycin 700 mg/ Sodium (Chloride) 64 mls @ 100 mls/hr IV Q48H [facility] Levothyroxine Sodium (Levothyroxine Sodium 175 Mcg Tablet) 175 mcg PO SUMOTUWETHFR@0630 [facility] Levothyroxine Sodium (Levothyroxine Sodium 175 Mcg Tablet) 262.5 mcg PO SA@0630 [facility] Magnesium Oxide (Magnesium Oxide 400 Mg Tablet) 400 mg PO BEDTIME [facility] Meclizine HCl (Meclizine Hcl 25 Mg Tablet) 25 mg PO BID PRN PRN Reason: Nausea And Vomiting Multivitamins/Vitamin C (Multivitamin Tablet) 1 tab PO DAILY [facility] Nystatin (Nystatin Powder 15 Gm Bottle) 1 appl TOPICAL BID [facility]; Protocol Ondansetron HCl (Ondansetron Hcl 4 Mg/2 Ml Vial) 4 mg IVPUSH Q8H PRN PRN Reason: Nausea and Vomiting Oxybutynin Chloride (Oxybutynin Chloride 5 Mg Tablet) 5 mg PO BID [facility] Oxycodone HCl (Oxycodone Hcl Immed Release 5 Mg Tablet) 5 mg PO Q3H PRN PRN Reason: Pain, Severe (Pain Scale 7-10) Last Admin: 09/10/22 06:38 Dose: 5 mg Pharmacy Consult (Consult Rx Perform Med Rec) 1 each MISCELLANE ONCE PRN PRN Reason: Consult order Potassium Chloride (Potassium Chloride Er 20 Meq Tab.Er.Prt) 20 meq PO DAILY [facility] Pravastatin Sodium (Pravastatin Sodium 40 Mg Tablet) 40 mg PO DAILY [facility] Sodium Chloride (0.9 % Sodium Chloride Flush 3 Ml Syringe) 3 ml IVFLUSH QSHIFT [facility] Last Admin: 09/10/22 01:05 Dose: Not Given Tizanidine HCl (Tizanidine Hcl 4 Mg Tablet) 2 mg PO TID [facility] Triamcinolone Acetonide (Triamcinolone Acet 0.1 % Cream 15 Gm Tube) 1 appl TOPICAL BID PRN; Protocol PRN Reason: eczema Vitamin D (Cholecalciferol (Vitamin D3) 25 Mcg Tablet) 25 mcg PO DAILY [facility] Home Medications Medication Instructions Recorded Confirmed Last Taken Type Lactobacillus 1 cap PO BID 09/09/22 09/09/22 Unknown History acidophilus-Bifidobac.animalis 32 billion cell capsule (Probizen) acetaminophen 325 mg tablet 650 mg PO Q4H PRN pain/fever 09/09/22 09/09/22 Unknown History acetaminophen 650 mg rectal 650 mg ND Q4H PRN pain/fever 09/09/22 09/09/22 Unknown History suppository biotin 1,000 mcg chewable tablet 1,000 mcg PO DAILY 09/09/22 09/09/22 Unknown History bisacodyl 10 mg rectal suppository 10 mg ND Q24H PRN Constipation 09/09/22 09/09/22 Unknown History cholecalciferol (vitamin D3) 25 25 mcg PO DAILY 09/09/22 09/09/22 Unknown History mcg (1,000 unit) tablet daptomycin 500 mg intravenous 700 mg IV Q48H 09/09/22 09/09/22 Unknown History solution diclofenac sodium 75 mg 75 mg PO BID 09/09/22 09/09/22 Unknown History tablet,delayed release duloxetine 60 mg capsule,delayed 60 mg PO DAILY 09/09/22 09/09/22 Unknown History release epinephrine 1 mg/mL injection kit 0.3 mg IM Q20M PRN Allergic 09/09/22 09/09/22 Unknown History Symptoms glucagon 1 mg solution for 1 mg subcut Q20M PRN bs<70 and 09/09/22 09/09/22 Unknown History injection unresponsive hydromorphone 4 mg tablet 8 mg PO Q4H PRN Pain (Scale Score 09/09/22 09/09/22 Unknown History 7-10) indapamide 1.25 mg tablet 1 tab PO DAILY 09/09/22 09/09/22 Unknown History lactulose 10 gram/15 mL oral 20 g PO Q24H PRN Constipation 09/09/22 09/09/22 Unknown History solution levothyroxine 175 mcg tablet 175 mcg PO SUMOTUWETHFR@0630 09/09/22 09/09/22 Unknown History levothyroxine 175 mcg tablet 262.5 mcg PO SA@0630 09/09/22 09/09/22 Unknown History magnesium hydroxide 400 mg/5 mL 30 ml PO Q24H PRN Constipation 09/09/22 09/09/22 Unknown History oral suspension (Milk of Magnesia) magnesium oxide 400 mg PO BEDTIME 09/09/22 09/09/22 Unknown History meclizine 25 mg tablet 25 mg PO BID PRN Nausea And 09/09/22 09/09/22 Unknown History Vomiting multivitamin 1 tab PO DAILY 09/09/22 09/09/22 Unknown History naloxone 4 mg/actuation nasal spray 4 mg intranasal Q3M PRN overdose 09/09/22 09/09/22 Unknown History nystatin 100,000 unit/gram topical 1 appl topical BID 09/09/22 09/09/22 Unknown History powder oxybutynin chloride 5 mg tablet 5 mg PO BID 09/09/22 09/09/22 Unknown History potassium chloride 20 mEq 20 meq PO DAILY 09/09/22 09/09/22 Unknown History tablet,extended release pravastatin 40 mg tablet 40 mg PO DAILY 09/09/22 09/09/22 Unknown History tizanidine 2 mg tablet 2 mg PO TID 09/09/22 09/09/22 Unknown History triamcinolone acetonide 0.1 % 1 appl topical BID PRN eczema 09/09/22 09/09/22 Unknown History topical cream RECEIVING SPECIALIST Physical Exam Vitals Vital signs: Temp Pulse Resp BP Pulse Ox O2 Del Method 97.9 F 83 14 121/62 96 09/10/22 07:47 09/10/22 07:47 09/10/22 07:47 09/10/22 07:47 09/10/22 07:47 09/10/22 07:47 BMI result Body Mass Index 62.5 Female Genitalia (Pelvic) Exam: Declined by Patient RECEIVING SPECIALIST - Results Labs CBC & Chem 7: 09/10/22 06:04 09/10/22 09:03 Labs: Short CBC 09/09/22 09/10/22 Range/Units 16:32 06:04 WBC 10.1 9.4 (4.8-10.8) X10*3/uL Hgb 9.5 L 9.6 L (12.0-16.0) g/dl Hct 29.3 L 29.8 L (37.0-47.0) % Plt Count 238 230 (160-400) X10*3/uL BMP 09/09/22 09/10/22 16:32 09:03 Sodium 130 L 136 Potassium 4.1 3.7 Chloride 79 L 85 L Carbon Dioxide 29 31 H BUN 115 H 107 H Creatinine 6.63 H* 6.02 H* Calcium 8.9 8.8 Liver Function 09/09/22 Range/Units 16:32 Total Bilirubin 1.4 H (0.0-1.0) mg/dL Direct Bilirubin 0.8 H (0.0-0.5) mg/dL AST 17 (5-31) U/L ALT 34 H (0-31) U/L Alkaline Phosphatase 181 H (39-117) U/L Albumin 2.9 L (3.5-5.0) g/dL Imaging US - abdomen: Radiologist's impression: ITS Impressions Abdomen/Pelvis CT 09/09/22 18:45 IMPRESSION: 1. Hepatosplenomegaly with diffusely decreased liver attenuation suggesting hepatic steatosis. Correlation with liver enzymes recommended. 2. Severe degenerative changes of the right hip with moderate degenerative changes of the left hip. Fleischner guidelines were followed. Pelvic/Transvag US 09/09/22 21:01 IMPRESSION: Endometrium measures 0.9 cm in thickness on transabdominal views. Given provided history of postmenopausal bleeding, recommend gynecologic referral and management. Right ovary was unremarkable in appearance. The left ovary was not identified sonographically. No adnexal mass. Assessment and Plan (1) Postmenopausal bleeding: Status: Acute Plan Discussed with the patient differential diagnosis of postmenopausal bleeding including but not limited to endometrial hyperplasia, malignancy or a polyp and others. In addition, discussed with the patient the pelvic ultrasound findings, the endometrial stripe thickenss measured by ultrasound was more than 4 mm. The negative predictive value, positive predictive value, Sensitivity, specificity of using ultrasound measurement of endometrial stripe to detect endometrial pathology including hyperplasia , polyp or cancer were discussed with the patient. Recommended to the patient that the next step is endometrial biopsy to r/o endometrial pathology including hyperplasia or cancer. The patient declined. In addition, discussed the patient the importance of a pelvic exam to complete the evaluation in postmenopausal bleeding patients in order to evaluate the cervix and vagina as a source of vaginal bleeding. All questions were answered pt verbalized understands that declining a pelvic exam and endometrial biopsy might delay the diagnosis and the treatment of a potential malignancy and might affect negatively her prognosis which in turn might lead to possibility of ; Upon further discussion, the patient decided to decline both pelvic exam and endometrial biopsy. Explained to the patient if she changes her mind in the future to expressed her interest to the nursing staff or hospitalist physician team in the evaluation, will proceed with a pelvic exam and endometrial biopsy then.
[2022-09-10] MEDS: DULoxetine HCl 60 MG CAPSULE.DR PO (10:22)
[2022-09-10] MEDS: Potassium Chloride ER 20 MEQ TAB.ER.PRT PO (10:22)
[2022-09-10] MEDS: TiZANidine HCL 4 MG TABLET 2 MG PO ×3 (10:22→20:52)
[2022-09-10] MEDS: Cholecalciferol (Vitamin D3) 25 MCG TABLET PO (10:23)
[2022-09-10] MEDS: Pravastatin Sodium 40 MG TABLET PO (10:23)
[2022-09-10] MEDS: Diclofenac Sodium Delayed Rel 75 MG TABLET.DR PO ×2 (10:24→22:44)
[2022-09-10] MEDS: 0.9 % Sodium Chloride Flush 3 ML SYRINGE IVFLUSH ×2 (10:24→17:04)
[2022-09-10] MEDS: Multivitamin TABLET 1 TAB PO (10:25)
[2022-09-10] MEDS: DAPTOmycin 700 MG in 0.9 % Sodium Chloride 50 ML 100 MG IV (10:25)
[2022-09-10] MEDS: Nystatin Powder 15 GM BOTTLE 1 APPL TOPICAL ×2 (11:07→20:53)
--- NOTE | 2022-09-10 12:53 | HO.PM.IMPN ---
Subjective Subjective Date of Service: 09/10/22 Interval History: the patient was seen and evaluated this morning Laying in bed, feels comfortable overall with no recurrence of the bleeding difficulty and pain swallowing Denies any fever, chills or shortness of breath No reported other overnight events. Systemic review: No fever, chills or weakness No chest pain, palpitation No shortness of breath or coughing No abdominal pain, difficulty swallowing No urinary symptoms Left calf wound Physical Exam Vital Signs: Vital Signs: Last Vital Signs Temp 97.9 F 09/10/22 07:47 Pulse 83 09/10/22 07:47 Resp 14 09/10/22 07:47 BP 121/62 09/10/22 07:47 Pulse Ox 96 09/10/22 07:47 O2 Del Method 09/10/22 07:47 BMI result Body Mass Index 62.5 Const: Other: Constitutional : Awake, interactive, obese, not in distress Neck : Normal inspection, Supple Cardiovascular : RRR, no JVP, +1 bilateral lower extremity edema Respiratory : good bilateral air entry, no crackles, wheezes or rhonchi Gastrointestinal: soft, lax, Normal bowel sounds, Non tender Skin : Warm, Dry, left calf wound covered with dressing with no erythema or drainage Neurological : Alert & oriented x3, No focal deficit Objective Data Active Medications Acetaminophen (Acetaminophen 325 Mg Tablet) 650 mg PO Q6H PRN PRN Reason: Pain, Mild (Pain Scale 1-3) Bisacodyl (Bisacodyl 10 Mg Supp.Rect) 10 mg IA Q24H PRN PRN Reason: Constipation Diclofenac Sodium (Diclofenac Sodium Delayed Rel 75 Mg Tablet.) 75 mg PO BID [facility] Last Admin: 09/10/22 10:24 Dose: 75 mg Documented By: MARK Docusate Sodium (Docusate Sodium 100 Mg Capsule) 100 mg PO DAILY PRN PRN Reason: Constipation Duloxetine HCl (Duloxetine Hcl 60 Mg Capsule.) 60 mg PO DAILY [facility] Last Admin: 09/10/22 10:22 Dose: 60 mg Documented By: MARK Glucagon (Glucagon,Human Recombinant 1 Mg/Ml Vial) 1 mg SUBCUT Q20M PRN PRN Reason: bs<70 and unresponsive Hydromorphone HCl (Hydromorphone Hcl 1 Mg/Ml Syringe) 1 mg IVPUSH Q4H PRN; Protocol PRN Reason: Pain, Severe (Pain Scale 7-10) Hydromorphone HCl (Hydromorphone Hcl 4 Mg Tablet) 8 mg PO Q4H PRN PRN Reason: Pain (Scale Score 7-10) Sodium Chloride (Ns) 1,000 mls @ 100 mls/hr IVCONT .Q10H [facility] Last Admin: 09/10/22 11:06 Dose: 100 mls/hr Documented By: MARK Daptomycin 700 mg/ Sodium (Chloride) 64 mls @ 100 mls/hr IV Q48H [facility] Last Admin: 09/10/22 10:25 Dose: 100 mls/hr Documented By: MARK Levothyroxine Sodium (Levothyroxine Sodium 175 Mcg Tablet) 175 mcg PO SUMOTUWETHFR@0630 [facility] Levothyroxine Sodium (Levothyroxine Sodium 175 Mcg Tablet) 262.5 mcg PO SA@0630 [facility] Magnesium Oxide (Magnesium Oxide 400 Mg Tablet) 400 mg PO BEDTIME [facility] Meclizine HCl (Meclizine Hcl 25 Mg Tablet) 25 mg PO BID PRN PRN Reason: Nausea And Vomiting Multivitamins/Vitamin C (Multivitamin Tablet) 1 tab PO DAILY [facility] Last Admin: 09/10/22 10:25 Dose: 1 tab Documented By: MARK Nystatin (Nystatin Powder 15 Gm Bottle) 1 appl TOPICAL BID [facility]; Protocol Last Admin: 09/10/22 11:07 Dose: 1 appl Documented By: MARK Ondansetron HCl (Ondansetron Hcl 4 Mg/2 Ml Vial) 4 mg IVPUSH Q8H PRN PRN Reason: Nausea and Vomiting Oxybutynin Chloride (Oxybutynin Chloride 5 Mg Tablet) 5 mg PO BID [facility] Last Admin: 09/10/22 11:06 Dose: 5 mg Documented By: MARK Oxycodone HCl (Oxycodone Hcl Immed Release 5 Mg Tablet) 5 mg PO Q3H PRN PRN Reason: Pain, Severe (Pain Scale 7-10) Last Admin: 09/10/22 06:38 Dose: 5 mg Documented By: STEPHANIE Pharmacy Consult (Consult Rx Perform Med Rec) 1 each MISCELLANE ONCE PRN PRN Reason: Consult order Potassium Chloride (Potassium Chloride Er 20 Meq Tab.Er.Prt) 20 meq PO DAILY [facility] Last Admin: 09/10/22 10:22 Dose: 20 meq Documented By: MARK Pravastatin Sodium (Pravastatin Sodium 40 Mg Tablet) 40 mg PO DAILY [facility] Last Admin: 09/10/22 10:23 Dose: 40 mg Documented By: MARK Sodium Chloride (0.9 % Sodium Chloride Flush 3 Ml Syringe) 3 ml IVFLUSH QSHIFT [facility] Last Admin: 09/10/22 10:24 Dose: 3 ml Documented By: MARK Tizanidine HCl (Tizanidine Hcl 4 Mg Tablet) 2 mg PO TID [facility] Last Admin: 09/10/22 10:22 Dose: 2 mg Documented By: MARK Triamcinolone Acetonide (Triamcinolone Acet 0.1 % Cream 15 Gm Tube) 1 appl TOPICAL BID PRN; Protocol PRN Reason: eczema Vitamin D (Cholecalciferol (Vitamin D3) 25 Mcg Tablet) 25 mcg PO DAILY [facility] Last Admin: 09/10/22 10:23 Dose: 25 mcg Documented By: MARK Labs CBC & Chem 7: 09/10/22 06:04 09/10/22 09:03 Labs: Laboratory Results - last 24 hr 09/09/22 09/09/22 09/09/22 16:32 16:32 16:32 MCV 84.2 MCH 27.3 MCHC 32.4 RDW 16.8 H Plt Count 238 MPV 9.5 Immature Gran % (Auto) 0.4 Neut % (Auto) 69.2 Lymph % (Auto) 12.4 L Meigs % (Auto) 8.0 Eos % (Auto) 9.4 H Baso % (Auto) 0.6 Lymph # (Auto) 1.3 Meigs # (Auto) 0.8 Eos # (Auto) 1.0 H Baso # (Auto) 0.1 Abs Immat Gran (auto) 0.04 H Absolute Neuts (auto) 7.0 Absolute Nucleated RBC 0.000 Nucleated RBC % (auto) 0.0 Anion Gap 26 H Estim Creat Clear Calc 11.8 Estimated GFR 6 Random Glucose 97 Lactic Acid 2.0 Calcium 8.9 Phosphorus Total Bilirubin 1.4 H Direct Bilirubin 0.8 H AST 17 ALT 34 H Alkaline Phosphatase 181 H Total Protein 7.1 Albumin 2.9 L Stool Occult Blood COVID-19 ([facility]) COVID-19 Clin Com 09/09/22 09/09/22 09/10/22 16:33 17:55 06:04 MCV 84.9 MCH 27.4 MCHC 32.2 RDW 17.0 H Plt Count 230 MPV 9.6 Immature Gran % (Auto) 0.5 H Neut % (Auto) 74.0 H Lymph % (Auto) 12.1 L Meigs % (Auto) 6.1 Eos % (Auto) 6.7 H Baso % (Auto) 0.6 Lymph # (Auto) 1.1 L Meigs # (Auto) 0.6 Eos # (Auto) 0.6 H Baso # (Auto) 0.1 Abs Immat Gran (auto) 0.05 H Absolute Neuts (auto) 7.0 Absolute Nucleated RBC 0.000 Nucleated RBC % (auto) 0.0 Anion Gap Estim Creat Clear Calc Estimated GFR Random Glucose Lactic Acid Calcium Phosphorus Total Bilirubin Direct Bilirubin AST ALT Alkaline Phosphatase Total Protein Albumin Stool Occult Blood POSITIVE COVID-19 ([facility]) Negative COVID-19 Clin Com See Note 09/10/22 09:03 MCV MCH MCHC RDW Plt Count MPV Immature Gran % (Auto) Neut % (Auto) Lymph % (Auto) Meigs % (Auto) Eos % (Auto) Baso % (Auto) Lymph # (Auto) Meigs # (Auto) Eos # (Auto) Baso # (Auto) Abs Immat Gran (auto) Absolute Neuts (auto) Absolute Nucleated RBC Nucleated RBC % (auto) Anion Gap 24 H Estim Creat Clear Calc 13.0 Estimated GFR 7 Random Glucose 97 Lactic Acid Calcium 8.8 Phosphorus 5.7 H Total Bilirubin Direct Bilirubin AST ALT Alkaline Phosphatase Total Protein Albumin Stool Occult Blood COVID-19 ([facility]) COVID-19 Clin Com Assessment and Plan (1) Positive occult stool blood test: Status: Acute (2) Acute kidney injury superimposed on CKD: Status: Acute (3) Vaginal bleeding: Status: Acute Plan 67-year-old female with past medical history of osteomyelitis currently on IV antibiotics, hypertension, hypothyroidism, morbid obesity, who presents to the hospital with complaints of vaginal bleeding found to have acute kidney injury # acute kidney injury Unclear baseline, patient denies any history of CKD Was on diuretics twice a day for lower extremity edema Seems prerenal with ATN Continue IV fluids hold nephrotoxic meds Nephrology evaluation Intake and output follow bmp closely # vaginal bleeding Ultrasound showed thickened endometrium consult Ob Gyne, patient refused exam or any further investigations at this point in spite of advise from Dr. Sudha Ayers To before outpatient, monitor H and H # positive occult stool blood test No major drop in hemoglobin, remains stable GI input appreciated, to do EGD on Tuesday but patient refused colonoscopy # difficulty swallowing Get speech therapy eval To do EGD by Tuesday Advanced diet as tolerated # septic knee No clear evidence of osteomyelitis Activity on treatment with daptomycin wound care to follow infectious disease consulted # hypothyroidism continue levothyroxine # morbid obesity consider bariatric evaluation outpatient DVT prophylaxis SCDs in the setting of positive GI as well as vaginal bleeding Given patient's kidney injury requiring IV fluids, evaluation for GI bleed patient require overnight hospital in-patient stay for further management and evaluation Quality Stroke Does the patient have a stroke diagnosis?: No VTE Prior VTE?: No VTE Risk Level:: Medical - moderate - high VTE Device Contraindication: N/A - Device Ordered VTE Drug Contraindication: Treatment Not Indicated
[2022-09-10 14:41] VITALS: BP 105/57; PULSE 73; RESP 16; TEMP 36.1; O2SAT 98
--- NOTE | 2022-09-10 16:31 | W.PM.IDCN ---
History of Present Illness Data of Consult Service Date: 09/10/22 Requesting physician: Chicho Reyes Primary Care Provider: Unknown Physician HPI Reason for consult: left leg swelling/lower osteomyelitsi She presents with postmenopausal bleeding. She has had swollen left knee and chills and was at [facility] for staph aureus bacteremia She is finishing antibiotics end September. Review of Systems Review of Systems: Yes all other systems are reviewed and are negative PMFSH Past Medical History Medical History JING inhibitor-aggravated angioedema Hypertension Hypothyroidism Morbid obesity Osteomyelitis Family History Family History Other No family history of coronary artery disease Surgical History Surgical History No pertinent past surgical history Social History Social History Household Members: Spouse Housing: House Do you presently have visiting nurse or other home services: Yes Alcohol intake: former Patient Tobacco Use Status: Never used Tobacco service: No Current occupational status: retired [employer] Allergies Allergy/AdvReac Type Severity Reaction Status Date / Time penicillin V Allergy Unknown hives on Verified 09/09/22 16:49 hands and feeet, hives Penicillins [PENICILLINS] Allergy Unknown HIVES Verified 09/09/22 16:49 Sulfa (Sulfonamide Allergy Unknown RASH, Verified 09/09/22 16:49 Antibiotics) itching [SULFA (SULFONAMIDE ANTIBIOTICS)] bee sting Allergy Unknown anaphylaxis Uncoded 09/09/22 16:49 Active Medications: Current Medications Acetaminophen (Acetaminophen 325 Mg Tablet) 650 mg PO Q6H PRN PRN Reason: Pain, Mild (Pain Scale 1-3) Bisacodyl (Bisacodyl 10 Mg Supp.Rect) 10 mg MD Q24H PRN PRN Reason: Constipation Diclofenac Sodium (Diclofenac Sodium Delayed Rel 75 Mg Tablet.) 75 mg PO BID [facility] Last Admin: 09/10/22 10:24 Dose: 75 mg Docusate Sodium (Docusate Sodium 100 Mg Capsule) 100 mg PO DAILY PRN PRN Reason: Constipation Duloxetine HCl (Duloxetine Hcl 60 Mg Capsule.) 60 mg PO DAILY [facility] Last Admin: 09/10/22 10:22 Dose: 60 mg Glucagon (Glucagon,Human Recombinant 1 Mg/Ml Vial) 1 mg SUBCUT Q20M PRN PRN Reason: bs<70 and unresponsive Hydromorphone HCl (Hydromorphone Hcl 1 Mg/Ml Syringe) 1 mg IVPUSH Q4H PRN; Protocol PRN Reason: Pain, Severe (Pain Scale 7-10) Hydromorphone HCl (Hydromorphone Hcl 4 Mg Tablet) 8 mg PO Q4H PRN PRN Reason: Pain (Scale Score 7-10) Sodium Chloride (Ns) 1,000 mls @ 100 mls/hr IVCONT .Q10H [facility] Last Admin: 09/10/22 11:06 Dose: 100 mls/hr Daptomycin 700 mg/ Sodium (Chloride) 64 mls @ 100 mls/hr IV Q48H [facility] Last Infusion: 09/10/22 10:30 Dose: 100 mls/hr Lactulose (Lactulose 20 Gm/30 Ml Solution) 20 gm PO Q24H PRN PRN Reason: Constipation Levothyroxine Sodium (Levothyroxine Sodium 175 Mcg Tablet) 175 mcg PO SUMOTUWETHFR@0630 [facility] Levothyroxine Sodium (Levothyroxine Sodium 175 Mcg Tablet) 262.5 mcg PO SA@0630 [facility] Magnesium Hydroxide (Milk Of Magnesia 30 Ml Oral.Susp) 30 ml PO Q24H PRN PRN Reason: Constipation Magnesium Oxide (Magnesium Oxide 400 Mg Tablet) 400 mg PO BEDTIME [facility] Meclizine HCl (Meclizine Hcl 25 Mg Tablet) 25 mg PO BID PRN PRN Reason: Nausea And Vomiting Multivitamins/Vitamin C (Multivitamin Tablet) 1 tab PO DAILY [facility] Last Admin: 09/10/22 10:25 Dose: 1 tab Nystatin (Nystatin Powder 15 Gm Bottle) 1 appl TOPICAL BID [facility]; Protocol Last Admin: 09/10/22 11:07 Dose: 1 appl Ondansetron HCl (Ondansetron Hcl 4 Mg/2 Ml Vial) 4 mg IVPUSH Q8H PRN PRN Reason: Nausea and Vomiting Oxybutynin Chloride (Oxybutynin Chloride 5 Mg Tablet) 5 mg PO BID [facility] Last Admin: 09/10/22 11:06 Dose: 5 mg Oxycodone HCl (Oxycodone Hcl Immed Release 5 Mg Tablet) 5 mg PO Q3H PRN PRN Reason: Pain, Severe (Pain Scale 7-10) Last Admin: 09/10/22 06:38 Dose: 5 mg Pharmacy Consult (Consult Rx Perform Med Rec) 1 each MISCELLANE ONCE PRN PRN Reason: Consult order Potassium Chloride (Potassium Chloride Er 20 Meq Tab.Er.Prt) 20 meq PO DAILY [facility] Last Admin: 09/10/22 10:22 Dose: 20 meq Pravastatin Sodium (Pravastatin Sodium 40 Mg Tablet) 40 mg PO DAILY [facility] Last Admin: 09/10/22 10:23 Dose: 40 mg Sodium Chloride (0.9 % Sodium Chloride Flush 3 Ml Syringe) 3 ml IVFLUSH QSHIFT [facility] Last Admin: 09/10/22 10:24 Dose: 3 ml Tizanidine HCl (Tizanidine Hcl 4 Mg Tablet) 2 mg PO TID [facility] Last Admin: 09/10/22 16:29 Dose: 2 mg Triamcinolone Acetonide (Triamcinolone Acet 0.1 % Cream 15 Gm Tube) 1 appl TOPICAL BID PRN; Protocol PRN Reason: eczema Vitamin D (Cholecalciferol (Vitamin D3) 25 Mcg Tablet) 25 mcg PO DAILY [facility] Last Admin: 09/10/22 10:23 Dose: 25 mcg Home Medications Medication Instructions Recorded Confirmed Last Taken Type Lactobacillus 1 cap PO BID 09/09/22 09/09/22 Unknown History acidophilus-Bifidobac.animalis 32 billion cell capsule (Probizen) acetaminophen 325 mg tablet 650 mg PO Q4H PRN pain/fever 09/09/22 09/09/22 Unknown History acetaminophen 650 mg rectal 650 mg MD Q4H PRN pain/fever 09/09/22 09/09/22 Unknown History suppository biotin 1,000 mcg chewable tablet 1,000 mcg PO DAILY 09/09/22 09/09/22 Unknown History bisacodyl 10 mg rectal suppository 10 mg MD Q24H PRN Constipation 09/09/22 09/09/22 Unknown History cholecalciferol (vitamin D3) 25 25 mcg PO DAILY 09/09/22 09/09/22 Unknown History mcg (1,000 unit) tablet daptomycin 500 mg intravenous 700 mg IV Q48H 09/09/22 09/09/22 Unknown History solution diclofenac sodium 75 mg 75 mg PO BID 09/09/22 09/09/22 Unknown History tablet,delayed release duloxetine 60 mg capsule,delayed 60 mg PO DAILY 09/09/22 09/09/22 Unknown History release epinephrine 1 mg/mL injection kit 0.3 mg IM Q20M PRN Allergic 09/09/22 09/09/22 Unknown History Symptoms glucagon 1 mg solution for 1 mg subcut Q20M PRN bs<70 and 09/09/22 09/09/22 Unknown History injection unresponsive hydromorphone 4 mg tablet 8 mg PO Q4H PRN Pain (Scale Score 09/09/22 09/09/22 Unknown History 7-10) indapamide 1.25 mg tablet 1 tab PO DAILY 09/09/22 09/09/22 Unknown History lactulose 10 gram/15 mL oral 20 g PO Q24H PRN Constipation 09/09/22 09/09/22 Unknown History solution levothyroxine 175 mcg tablet 175 mcg PO SUMOTUWETHFR@0630 09/09/22 09/09/22 Unknown History levothyroxine 175 mcg tablet 262.5 mcg PO SA@0630 09/09/22 09/09/22 Unknown History magnesium hydroxide 400 mg/5 mL 30 ml PO Q24H PRN Constipation 09/09/22 09/09/22 Unknown History oral suspension (Milk of Magnesia) magnesium oxide 400 mg PO BEDTIME 09/09/22 09/09/22 Unknown History meclizine 25 mg tablet 25 mg PO BID PRN Nausea And 09/09/22 09/09/22 Unknown History Vomiting multivitamin 1 tab PO DAILY 09/09/22 09/09/22 Unknown History naloxone 4 mg/actuation nasal spray 4 mg intranasal Q3M PRN overdose 09/09/22 09/09/22 Unknown History nystatin 100,000 unit/gram topical 1 appl topical BID 09/09/22 09/09/22 Unknown History powder oxybutynin chloride 5 mg tablet 5 mg PO BID 09/09/22 09/09/22 Unknown History potassium chloride 20 mEq 20 meq PO DAILY 09/09/22 09/09/22 Unknown History tablet,extended release pravastatin 40 mg tablet 40 mg PO DAILY 09/09/22 09/09/22 Unknown History tizanidine 2 mg tablet 2 mg PO TID 09/09/22 09/09/22 Unknown History triamcinolone acetonide 0.1 % 1 appl topical BID PRN eczema 09/09/22 09/09/22 Unknown History topical cream Physical Exam Vital Signs: Vital Signs: Last Vital Signs Temp 97.0 F 09/10/22 14:41 Pulse 73 09/10/22 14:41 Resp 16 09/10/22 14:41 BP 105/57 L 09/10/22 14:41 Pulse Ox 98 09/10/22 14:41 O2 Del Method 09/10/22 14:41 BMI result Body Mass Index 62.5 Const: General: cooperative HEENT: Head: Yes normal to inspection Face and sinus: Yes normal facial exam Mouth: Normal oral and palatal mucosa present Teeth and gingiva: dentition normal Eyes: General: appearance normal, both eyes and all related structures Pupils: Equal, round and reactive pupils present Resp: Effort & Inspection: normal respiratory effort Cardio: Rate: regular rate Rhythm: regular rhythm GI: Palpation (GI): Soft to palpation and nontender : General: Yes no CVA tenderness Back/Spine/Pelvis: Back: no CVA tenderness Skin: General skin exam: no rashes or lesions noted Neuro: General: moves all extremities Cranial nerves: Yes Equal, round and reactive pupils present Extrem: General: Yes normal to inspection Psych: Appearance: grossly normal Results Labs CBC & Chem 7: 09/13/22 05:48 09/14/22 06:55 Labs: Short CBC 09/09/22 09/10/22 Range/Units 16:32 06:04 WBC 10.1 9.4 (4.8-10.8) X10*3/uL Hgb 9.5 L 9.6 L (12.0-16.0) g/dl Hct 29.3 L 29.8 L (37.0-47.0) % Plt Count 238 230 (160-400) X10*3/uL BMP 09/09/22 09/10/22 16:32 09:03 Sodium 130 L 136 Potassium 4.1 3.7 Chloride 79 L 85 L Carbon Dioxide 29 31 H BUN 115 H 107 H Creatinine 6.63 H* 6.02 H* Calcium 8.9 8.8 Liver Function 09/09/22 Range/Units 16:32 Total Bilirubin 1.4 H (0.0-1.0) mg/dL Direct Bilirubin 0.8 H (0.0-0.5) mg/dL AST 17 (5-31) U/L ALT 34 H (0-31) U/L Alkaline Phosphatase 181 H (39-117) U/L Albumin 2.9 L (3.5-5.0) g/dL Assessment and Plan (1) Osteomyelitis: Status: Inactive Bactermia possible skin or left sepic knee source (2) Acute kidney injury superimposed on CKD: Status: Resolved Plan Follow patent clinicallly. Finish Daptomycin per [facility] scedule
--- NOTE | 2022-09-10 16:42 | PM.CNNEP ---
History of Present Illness Reason for Consult Consult date: 09/10/22 Reason for consult: LATISHA Requesting physician: Chicho Reyes Chief Complaint Chief complaint: LATISHA on CKD, Vaginal bleed History of Present Illness Narrative: Ms. Amber Neves is a 67-year-old female with past medical history of septic knee with recent MRSA septic knee 08/16/22 requiring I&D with brief bacteremia. MARIBELL was negative. She was placed on Daptomycin for 6 weeks by BELL Ramírez. This was all done at [facility]. During this admission she had a Cr peak to 6.0mg/dL. This was a rapid rise from prior baseline Cr of 0.8mg/dL. With IVF support she quickly improved to 4.0mg/dL and was allowed to discharge. At Rehab she was on indapemide and lasix combo for very unclear reason. She herself reported concern about this, but she could not get staff to discontinue the medications. She had Poor PO intake as well. She ultimately had reduced UOP before coming to hospital. On my assessment she is quite worried about her renal function. We went over her [facility] records and she never knew she had LATISHA. It appears she was evaluated by Nephrology there but never saw the provider. She did not recall having kidney injury. Review of Systems Review of Systems Constitutional : No Weight loss, No Fever, No Chills, No Night Sweats, No Fatigue, No Malaise ENT/Mouth : No Hearing loss, No Ear Pain, No Nasal Congestion, No Sinus Pain, No Hoarseness, No sore throat, No Rhinorrhea, No Swallowing Difficulty Eyes: No Eye Pain, No Swelling, No Redness, No Foreign Body, No Discharge, No Vision Changes Cardiovascular : No Chest Pain, No SOB, No Dyspnea on Exertion, No Orthopnea, No Edema, No Palpitations Respiratory : No Cough, No Sputum, No Wheezing, No Smoke Exposure, No Dyspnea Gastrointestinal : No Nausea, No Vomiting, No Diarrhea, No Constipation, No abdominal Pain, No Hematochezia, No Melena Genitourinary : Complaining possible vaginal bleeding versus rectal bleeding, No Dysuria, No Urinary Frequency, No Hematuria, No Urinary Incontinence, No Urgency, No Flank Pain, No Urinary Flow Changes, No Hesitancy Musculoskeletal : Complaining of chronic left knee pain, recovering from a stomatitis, complaining of a skin ulcer in the left calf, No Myalgias, No Joint Swelling Skin : No Skin Lesions, No rash Neuro : No Weakness, No Numbness, No Paresthesias, No Loss of Consciousness, No Dizziness, No Headache Psych : No Anxiety/Panic, No Depression, No SI/HI/AH/VH, No Social Issues, Heme/Lymph: No Bruising, No Bleeding,No Lymphadenopathy Endocrine : No Polyuria, No Polydipsia, No Temperature Intolerance [facility] Past Medical History Medical History (Updated 09/10/22 @ 06:44 by Celeste Sprague MD) JING inhibitor-aggravated angioedema Hypertension Hypothyroidism Morbid obesity Osteomyelitis Family History Family History (Updated 09/10/22 @ 06:40 by Celeste Sprague MD) Other No family history of coronary artery disease Surgical History Surgical History (Updated 09/10/22 @ 06:43 by Celeste Sprague MD) No pertinent past surgical history Social History Social History (Updated 09/10/22 @ 06:43 by Celeste Sprague MD) Alcohol intake: former Patient Tobacco Use Status: Never used Tobacco Use of substances other than those prescribed or required for medical reasons: No Advance Directives: No Advance Directives Information Provided: No service: No Current occupational status: retired Meds Allergies Allergy/AdvReac Type Severity Reaction Status Date / Time penicillin V Allergy Unknown hives on Verified 09/09/22 16:49 hands and feeet, hives Penicillins [PENICILLINS] Allergy Unknown HIVES Verified 09/09/22 16:49 Sulfa (Sulfonamide Allergy Unknown RASH, Verified 09/09/22 16:49 Antibiotics) itching [SULFA (SULFONAMIDE ANTIBIOTICS)] bee sting Allergy Unknown anaphylaxis Uncoded 09/09/22 16:49 Active Medications: Current Medications Acetaminophen (Acetaminophen 325 Mg Tablet) 650 mg PO Q6H PRN PRN Reason: Pain, Mild (Pain Scale 1-3) Bisacodyl (Bisacodyl 10 Mg Supp.Rect) 10 mg [place] Q24H PRN PRN Reason: Constipation Diclofenac Sodium (Diclofenac Sodium Delayed Rel 75 Mg Tablet.) 75 mg PO BID [facility] Last Admin: 09/10/22 10:24 Dose: 75 mg Docusate Sodium (Docusate Sodium 100 Mg Capsule) 100 mg PO DAILY PRN PRN Reason: Constipation Duloxetine HCl (Duloxetine Hcl 60 Mg Capsule.) 60 mg PO DAILY [facility] Last Admin: 09/10/22 10:22 Dose: 60 mg Glucagon (Glucagon,Human Recombinant 1 Mg/Ml Vial) 1 mg SUBCUT Q20M PRN PRN Reason: bs<70 and unresponsive Hydromorphone HCl (Hydromorphone Hcl 1 Mg/Ml Syringe) 1 mg IVPUSH Q4H PRN; Protocol PRN Reason: Pain, Severe (Pain Scale 7-10) Hydromorphone HCl (Hydromorphone Hcl 4 Mg Tablet) 8 mg PO Q4H PRN PRN Reason: Pain (Scale Score 7-10) Sodium Chloride (Ns) 1,000 mls @ 100 mls/hr IVCONT .Q10H [facility] Last Infusion: 09/10/22 16:31 Dose: 100 mls/hr Daptomycin 700 mg/ Sodium (Chloride) 64 mls @ 100 mls/hr IV Q48H [facility] Last Infusion: 09/10/22 10:30 Dose: 100 mls/hr Lactulose (Lactulose 20 Gm/30 Ml Solution) 20 gm PO Q24H PRN PRN Reason: Constipation Levothyroxine Sodium (Levothyroxine Sodium 175 Mcg Tablet) 175 mcg PO SUMOTUWETHFR@0630 [facility] Levothyroxine Sodium (Levothyroxine Sodium 175 Mcg Tablet) 262.5 mcg PO SA@0630 [facility] Magnesium Hydroxide (Milk Of Magnesia 30 Ml Oral.Susp) 30 ml PO Q24H PRN PRN Reason: Constipation Magnesium Oxide (Magnesium Oxide 400 Mg Tablet) 400 mg PO BEDTIME [facility] Meclizine HCl (Meclizine Hcl 25 Mg Tablet) 25 mg PO BID PRN PRN Reason: Nausea And Vomiting Multivitamins/Vitamin C (Multivitamin Tablet) 1 tab PO DAILY [facility] Last Admin: 09/10/22 10:25 Dose: 1 tab Nystatin (Nystatin Powder 15 Gm Bottle) 1 appl TOPICAL BID [facility]; Protocol Last Admin: 09/10/22 11:07 Dose: 1 appl Ondansetron HCl (Ondansetron Hcl 4 Mg/2 Ml Vial) 4 mg IVPUSH Q8H PRN PRN Reason: Nausea and Vomiting Oxybutynin Chloride (Oxybutynin Chloride 5 Mg Tablet) 5 mg PO BID [facility] Last Admin: 09/10/22 11:06 Dose: 5 mg Oxycodone HCl (Oxycodone Hcl Immed Release 5 Mg Tablet) 5 mg PO Q3H PRN PRN Reason: Pain, Severe (Pain Scale 7-10) Last Admin: 09/10/22 06:38 Dose: 5 mg Pharmacy Consult (Consult Rx Perform Med Rec) 1 each MISCELLANE ONCE PRN PRN Reason: Consult order Potassium Chloride (Potassium Chloride Er 20 Meq Tab.Er.Prt) 20 meq PO DAILY [facility] Last Admin: 09/10/22 10:22 Dose: 20 meq Pravastatin Sodium (Pravastatin Sodium 40 Mg Tablet) 40 mg PO DAILY [facility] Last Admin: 09/10/22 10:23 Dose: 40 mg Sodium Chloride (0.9 % Sodium Chloride Flush 3 Ml Syringe) 3 ml IVFLUSH QSHIFT [facility] Last Admin: 09/10/22 10:24 Dose: 3 ml Tizanidine HCl (Tizanidine Hcl 4 Mg Tablet) 2 mg PO TID [facility] Last Admin: 09/10/22 16:29 Dose: 2 mg Triamcinolone Acetonide (Triamcinolone Acet 0.1 % Cream 15 Gm Tube) 1 appl TOPICAL BID PRN; Protocol PRN Reason: eczema Vitamin D (Cholecalciferol (Vitamin D3) 25 Mcg Tablet) 25 mcg PO DAILY [facility] Last Admin: 09/10/22 10:23 Dose: 25 mcg Home Medications Medication Instructions Recorded Confirmed Last Taken Type Lactobacillus 1 cap PO BID 09/09/22 09/09/22 Unknown History acidophilus-Bifidobac.animalis 32 billion cell capsule (Probizen) acetaminophen 325 mg tablet 650 mg PO Q4H PRN pain/fever 09/09/22 09/09/22 Unknown History acetaminophen 650 mg rectal 650 mg [place] Q4H PRN pain/fever 09/09/22 09/09/22 Unknown History suppository biotin 1,000 mcg chewable tablet 1,000 mcg PO DAILY 09/09/22 09/09/22 Unknown History bisacodyl 10 mg rectal suppository 10 mg [place] Q24H PRN Constipation 09/09/22 09/09/22 Unknown History cholecalciferol (vitamin D3) 25 25 mcg PO DAILY 09/09/22 09/09/22 Unknown History mcg (1,000 unit) tablet daptomycin 500 mg intravenous 700 mg IV Q48H 09/09/22 09/09/22 Unknown History solution diclofenac sodium 75 mg 75 mg PO BID 09/09/22 09/09/22 Unknown History tablet,delayed release duloxetine 60 mg capsule,delayed 60 mg PO DAILY 09/09/22 09/09/22 Unknown History release epinephrine 1 mg/mL injection kit 0.3 mg IM Q20M PRN Allergic 09/09/22 09/09/22 Unknown History Symptoms glucagon 1 mg solution for 1 mg subcut Q20M PRN bs<70 and 09/09/22 09/09/22 Unknown History injection unresponsive hydromorphone 4 mg tablet 8 mg PO Q4H PRN Pain (Scale Score 09/09/22 09/09/22 Unknown History 7-10) indapamide 1.25 mg tablet 1 tab PO DAILY 09/09/22 09/09/22 Unknown History lactulose 10 gram/15 mL oral 20 g PO Q24H PRN Constipation 09/09/22 09/09/22 Unknown History solution levothyroxine 175 mcg tablet 175 mcg PO SUMOTUWETHFR@0630 09/09/22 09/09/22 Unknown History levothyroxine 175 mcg tablet 262.5 mcg PO SA@0630 09/09/22 09/09/22 Unknown History magnesium hydroxide 400 mg/5 mL 30 ml PO Q24H PRN Constipation 09/09/22 09/09/22 Unknown History oral suspension (Milk of Magnesia) magnesium oxide 400 mg PO BEDTIME 09/09/22 09/09/22 Unknown History meclizine 25 mg tablet 25 mg PO BID PRN Nausea And 09/09/22 09/09/22 Unknown History Vomiting multivitamin 1 tab PO DAILY 09/09/22 09/09/22 Unknown History naloxone 4 mg/actuation nasal spray 4 mg intranasal Q3M PRN overdose 09/09/22 09/09/22 Unknown History nystatin 100,000 unit/gram topical 1 appl topical BID 09/09/22 09/09/22 Unknown History powder oxybutynin chloride 5 mg tablet 5 mg PO BID 09/09/22 09/09/22 Unknown History potassium chloride 20 mEq 20 meq PO DAILY 09/09/22 09/09/22 Unknown History tablet,extended release pravastatin 40 mg tablet 40 mg PO DAILY 09/09/22 09/09/22 Unknown History tizanidine 2 mg tablet 2 mg PO TID 09/09/22 09/09/22 Unknown History triamcinolone acetonide 0.1 % 1 appl topical BID PRN eczema 09/09/22 09/09/22 Unknown History topical cream Physical Exam Vital Signs: Last Vital Signs Temp 97.0 F 09/10/22 14:41 Pulse 73 09/10/22 14:41 Resp 16 09/10/22 14:41 BP 105/57 L 09/10/22 14:41 Pulse Ox 98 09/10/22 14:41 O2 Del Method 09/10/22 14:41 BMI result Body Mass Index 62.5 Const Other: Constitutional : Awake, interactive, obese, not in distress Neck : Normal inspection, Supple Cardiovascular : RRR, no JVP, +1 bilateral lower extremity edema Respiratory : good bilateral air entry, no crackles, wheezes or rhonchi Gastrointestinal: soft, lax, Normal bowel sounds, Non tender Skin : Warm, Dry, left calf wound covered with dressing with no erythema or drainage Neurological : Alert & oriented x3, No focal deficit Results Lab Results Result Diagrams: 09/10/22 06:04 09/10/22 09:03 Lab results: Chemistry 09/09/22 09/10/22 16:32 09:03 Sodium 130 L 136 Potassium 4.1 3.7 Carbon Dioxide 29 31 H BUN 115 H 107 H Creatinine 6.63 H* 6.02 H* Calcium 8.9 8.8 Phosphorus 5.7 H Hematology 09/09/22 09/10/22 16:32 06:04 WBC 10.1 9.4 Hgb 9.5 L 9.6 L Plt Count 238 230 Assessment and Plan (1) Positive occult stool blood test: Status: Acute (2) Acute kidney injury superimposed on CKD: Status: Acute (3) Vaginal bleeding: Status: Acute Plan 67-year-old female with past medical history of Left knee septic arthritis s/p I&D 08/16/22 with MRSA found as well as MRSA bacteremia. The patient was on Daptomycin q48 hours for GFR for total of 6 week plan. She presented from SNF for vaginal bleeding. Course now complicated by recurrent LATISHA on baseline normal renal function. 1. LATISHA BL Cr 0.8mg/dL [place] [facility] [place] peaking 6.4mg/dL 08/16/22 when she was originally admitted for left knee septic arthritis. With IVF support Cr quickly improved to 4.0mg/dL. She was discharged. She tells me she does not remember being seen by a Retail [facility], however it appears she was evaluated by kidney team there. She is frustrated that she never knew about her LATISHA there. In SNF had lasix and idapamide started, she is not sure why. She had poor PO intake and soon enough had reduced UOP. She now presents with Cr near 5's Oliguria markedly improved after IVF support Serum Eos elevated Differential includes Infectious GN vs AIN vs Pre-renal azotemia. Obstruction ruled out by CT scan Plan: - 0.9% saline at 125cc/hr - renal panel daily - pure wick - U/A - C3/ C4 - Urine Eos - Urine lytes - no indication for [employer] yet Procedures Date of Service Date of Service: 09/10/22
[2022-09-10 19:00] LABS: Appearance Urine Clear; Color Urine Orange; Glucose Urine UA Negative (Negative); Leukocyte Esterase Urine Trace (Negative); Nitrite Urine Negative (Negative); UMIC TRIGGER UACC YES; Urine Blood Large (3+) (Negative); Urine Ketones Negative (Negative); Urine Protein 30 (1+) mg/dL (Neg-Trace)
[2022-09-10 19:09] LABS: Creatinine Urine 33.52 mg/dL; Potassium Urine Random 13.8 mmol/L
[2022-09-10 19:10] LABS: Bacteria Urine 3+ (None Seen); Hyaline Casts Urine 0-2 /LPF (0-2); RBC Urine >20 /HPF (0-2); Squamous Epithelial Cell Urine 0-2 /HPF (0-2); WBC Urine 0-5 /HPF (0-5)
--- NOTE | 2022-09-10 19:49 | MHC.SL.SWA ---
Addendum entered and electronically signed by Darby Gamble MA, CCC-[employer]ER 09/10/22 19:53: D.S. Original Note: Dysphasia Diet Status: Upgrade Liquid Consistency and Strategies for Safe Swallow: Liquid Intake Recommendation: Thin Liquid Intake Strategies: Small Sips No Straws Solid Food Consistency: Dietary Recommendations: Chopped/Advanced (NDD3) Additional Modifications to Solid Foods: Oral Medication Intake: Please contact the pharmacy regarding appropriate crushable or liquid drug formulations that are available whenever modified delivery is recommended. Compensatory Strategies and Precautions to be Taken for Safe Swallow: Sitting Upright (90 deg) Small Bites and Sips Supervision While Eating and Drinking for Safe Swallow: Intermittent Supervision Swallowing Recommended Treatments: Compens. Strategy Educat. Recommendation for Speech: Outpatient Speech Therapy Inpatient Speech Therapy Pt seen for bedside swallow evaluation this afternoon. Note involuntary lingual movement upon protrusion and mildly reduced lingual strength anteriorly. All other aspects of oral motor exam WFL. Pt presents with bumps/sores on R posterior tongue. Pt reports feeling like the R side of her throat is swollen. Pt reports hx of reflux; stating heartburn returned while at [facility]. Pt reports sensation of gagging and vomiting. Pt tolerated thin liquids and chopped consistency with no s/s aspiration. Pt did report feelings of tender stomach, liquids wanting to come back up, and heartburn. Denies globus sensation. Recommend CHOPPED/ADVANCED solids (NDD3) and THIN liquids. Recommend referral to ENT d/t report of swollen throat, to GI d/t reports of heartburn/reflux, for dietary consult d/t low appetite. Message sent to DU[facility] COYLE. Branding Machine Operator Clinican/Clinical Fellow: Yes: Almaz Lobato M.A., CF-[employer] Supervisory Statement: I have reviewed and agree with the student/clinical fellow's documentation: Speech Language Pathologist:
[2022-09-10 20:00] VITALS: BP 121/53; PULSE 79; RESP 20; TEMP 36.3
[2022-09-10] MEDS: Magnesium Oxide 400 MG TABLET PO (20:53)
[2022-09-11] MEDS: 0.9 % Sodium Chloride 1,000 ML 100 ML IVCONT ×3 (00:06→19:03)
[2022-09-11] MEDS: 0.9 % Sodium Chloride Flush 3 ML SYRINGE IVFLUSH ×3 (00:11→22:14)
[2022-09-11 04:00] VITALS: BP 118/59; PULSE 71; RESP 20; TEMP 36.1; O2SAT 97
[2022-09-11] MEDS: Levothyroxine Sodium 175 MCG TABLET 262.5 MCG PO (06:16)
[2022-09-11 07:03] LABS: Hematocrit 28.9 % (37.0-47.0); Hemoglobin 9.3 g/dl (12.0-16.0); Mean Corpuscular HGB Conc 32.2 g/dl (31.0-35.0); Mean Corpuscular Hemoglobin 27.6 pg (27.0-33.0); Mean Corpuscular Volume 85.8 fL (80.0-98.0); Mean Platelet Volume 9.8 fL (9.4-12.3); Platelet Count 221 X10*3/uL (160-400); Red Blood Count 3.37 X10*6/uL (4.20-5.50); Red Cell Distribution Width 16.8 % (11.0-16.0); White Blood Count 7.9 X10*3/uL (4.8-10.8)
[2022-09-11 07:13] LABS: Anion Gap 21 (12-20); Blood Urea Nitrogen 104 mg/dL (9-16); Calcium 8.8 mg/dL (8.4-10.2); Carbon Dioxide 31 mmol/L (22-29); Chloride 91 mmol/L (96-108); Creatinine Clr Calc Pharmacy 16.5; Estimated Glomerular Filt Rate 9; Glucose Random 106 mg/dL (60-115); Potassium 3.4 mmol/L (3.3-5.1); Sodium 140 mmol/L (135-145)
[2022-09-11 07:34] VITALS: BP 153/69; PULSE 77; RESP 20; TEMP 36.6; O2SAT 92
[2022-09-11] MEDS: oxyCODONE HCl Immed Release 5 MG TABLET PO (07:56)
--- NOTE | 2022-09-11 07:56 | PC.NURSE ---
patient a&ox3, pt c/o generalized pain, pt medicated for pain per order, ivf running per order through single lumen picc, pills marly in applesauce, pure wick intact/draining, call sy within reach, will continue to monitor
--- NOTE | 2022-09-11 09:17 | PC.NURSE ---
called pharmacy for missing meds
[2022-09-11 09:22] LABS: Vitamin B12 1850 pg/mL (200-900)
[2022-09-11] MEDS: DULoxetine HCl 60 MG CAPSULE.DR PO (10:08)
[2022-09-11] MEDS: Potassium Chloride ER 20 MEQ TAB.ER.PRT PO (10:08)
[2022-09-11] MEDS: Nystatin Powder 15 GM BOTTLE 1 APPL TOPICAL ×2 (10:08→22:14)
[2022-09-11] MEDS: Levothyroxine Sodium 175 MCG TABLET PO (10:08)
[2022-09-11] MEDS: Multivitamin TABLET 1 TAB PO (10:08)
[2022-09-11] MEDS: Cholecalciferol (Vitamin D3) 25 MCG TABLET PO (10:08)
[2022-09-11] MEDS: Diclofenac Sodium Delayed Rel 75 MG TABLET.DR PO ×2 (10:08→22:13)
[2022-09-11] MEDS: Pravastatin Sodium 40 MG TABLET PO (10:09)
[2022-09-11] MEDS: TiZANidine HCL 4 MG TABLET 2 MG PO ×3 (10:09→22:13)
--- NOTE | 2022-09-11 10:15 | PC.NURSE ---
pt medicated per order, notified pharmacy still missing oxybutynin
[2022-09-11 10:25] LABS: Iron 63 mcg/dL (30-160); Percent Iron Saturation 26 % (15-50); Total Iron Binding Capacity 241 mcg/dL (228-428); Unsaturated Iron Binding 178 ug/dL
[2022-09-11 10:45] LABS: Ferritin 395 ng/mL (10-250)
[2022-09-11 11:22] LABS: EOS Counted 0 CELLS; EOS QC POS YES; EOS Stain Quality OK YES; WBC, Counted 100 CELLS
--- NOTE | 2022-09-11 11:37 | PC.NURSE ---
pt given bed bath, nystatin applied to pannus area, pure wick reapplied/patient draining, pt takes meds whole in applesauce, ivf running per order, will continue to monitor.
[2022-09-11] MEDS: HYDROmorphone HCl 1 MG/ML SYRINGE IVPUSH (15:00)
--- NOTE | 2022-09-11 15:05 | P.PNIM_ITS ---
Subjective Subjective Date of Service: 09/11/22 Interval History: The patient was seen and evaluated this morning Laying in bed, feels comfortable overall with no recurrence of the bleeding tolerating diet Denies any fever, chills or shortness of breath No reported other overnight events Systemic review: No fever, chills or weakness No chest pain, palpitation No shortness of breath or coughing No abdominal pain, difficulty swallowing No urinary symptoms Left calf wound Physical Exam Vital Signs: Vital Signs: Last Vital Signs Temp 97.8 F 09/11/22 07:34 Pulse 77 09/11/22 07:34 Resp 20 09/11/22 07:34 BP 153/69 H 09/11/22 07:34 Pulse Ox 92 09/11/22 07:34 O2 Del Method 09/11/22 07:34 BMI result Body Mass Index 62.5 Const: Other: Constitutional : Awake, interactive, obese, not in distress Neck : Normal inspection, Supple Cardiovascular : RRR, no JVP, +1 bilateral lower extremity edema Respiratory : good bilateral air entry, no crackles, wheezes or rhonchi Gastrointestinal: soft, lax, Normal bowel sounds, Non tender Skin : Warm, Dry, left calf wound covered with dressing with no erythema or drainage Neurological : Alert & oriented x3, No focal deficit Objective Data Active Medications Acetaminophen (Acetaminophen 325 Mg Tablet) 650 mg PO Q6H PRN PRN Reason: Pain, Mild (Pain Scale 1-3) Bisacodyl (Bisacodyl 10 Mg Supp.Rect) 10 mg SD Q24H PRN PRN Reason: Constipation Diclofenac Sodium (Diclofenac Sodium Delayed Rel 75 Mg Tablet.) 75 mg PO BID [facility] Last Admin: 09/11/22 10:08 Dose: 75 mg Documented By: ODIN Docusate Sodium (Docusate Sodium 100 Mg Capsule) 100 mg PO DAILY PRN PRN Reason: Constipation Duloxetine HCl (Duloxetine Hcl 60 Mg Capsule.) 60 mg PO DAILY [facility] Last Admin: 09/11/22 10:08 Dose: 60 mg Documented By: ODIN Glucagon (Glucagon,Human Recombinant 1 Mg/Ml Vial) 1 mg SUBCUT Q20M PRN PRN Reason: bs<70 and unresponsive Hydromorphone HCl (Hydromorphone Hcl 1 Mg/Ml Syringe) 1 mg IVPUSH Q4H PRN; Protocol PRN Reason: Pain, Severe (Pain Scale 7-10) Hydromorphone HCl (Hydromorphone Hcl 4 Mg Tablet) 8 mg PO Q4H PRN PRN Reason: Pain (Scale Score 7-10) Sodium Chloride (Ns) 1,000 mls @ 100 mls/hr IVCONT .Q10H [facility] Last Admin: 09/11/22 07:49 Dose: 100 mls/hr Documented By: ODIN Daptomycin 700 mg/ Sodium (Chloride) 64 mls @ 100 mls/hr IV Q48H [facility] Last Infusion: 09/10/22 22:14 Dose: 0 mls/hr Documented By: YVAN Lactulose (Lactulose 20 Gm/30 Ml Solution) 20 gm PO Q24H PRN PRN Reason: Constipation Levothyroxine Sodium (Levothyroxine Sodium 175 Mcg Tablet) 175 mcg PO SUMOTUWETHFR@0630 [facility] Last Admin: 09/11/22 10:08 Dose: 175 mcg Documented By: ODIN Levothyroxine Sodium (Levothyroxine Sodium 175 Mcg Tablet) 262.5 mcg PO SA@0630 [facility] Last Admin: 09/11/22 06:16 Dose: 262.5 mcg Documented By: YVAN Magnesium Hydroxide (Milk Of Magnesia 30 Ml Oral.Susp) 30 ml PO Q24H PRN PRN Reason: Constipation Magnesium Oxide (Magnesium Oxide 400 Mg Tablet) 400 mg PO BEDTIME [facility] Last Admin: 09/10/22 20:53 Dose: 400 mg Documented By: AMANDA Meclizine HCl (Meclizine Hcl 25 Mg Tablet) 25 mg PO BID PRN PRN Reason: Nausea And Vomiting Multivitamins/Vitamin C (Multivitamin Tablet) 1 tab PO DAILY [facility] Last Admin: 09/11/22 10:08 Dose: 1 tab Documented By: ODIN Nystatin (Nystatin Powder 15 Gm Bottle) 1 appl TOPICAL BID [facility]; Protocol Last Admin: 09/11/22 10:08 Dose: 1 appl Documented By: ODIN Ondansetron HCl (Ondansetron Hcl 4 Mg/2 Ml Vial) 4 mg IVPUSH Q8H PRN PRN Reason: Nausea and Vomiting Oxybutynin Chloride (Oxybutynin Chloride Er 5 Mg Tab.Er.24) 10 mg PO DAILY [facility] Last Admin: 09/11/22 11:00 Dose: 10 mg Documented By: ODIN Oxycodone HCl (Oxycodone Hcl Immed Release 5 Mg Tablet) 5 mg PO Q3H PRN PRN Reason: Pain, Severe (Pain Scale 7-10) Last Admin: 09/11/22 07:56 Dose: 5 mg Documented By: ODIN Pharmacy Consult (Consult Rx Perform Med Rec) 1 each MISCELLANE ONCE PRN PRN Reason: Consult order Potassium Chloride (Potassium Chloride Er 20 Meq Tab.Er.Prt) 20 meq PO DAILY [facility] Last Admin: 09/11/22 10:08 Dose: 20 meq Documented By: ODIN Pravastatin Sodium (Pravastatin Sodium 40 Mg Tablet) 40 mg PO DAILY [facility] Last Admin: 09/11/22 10:09 Dose: 40 mg Documented By: ODIN Sodium Chloride (0.9 % Sodium Chloride Flush 3 Ml Syringe) 3 ml IVFLUSH QSHIFT [facility] Last Admin: 09/11/22 07:48 Dose: Not Given Documented By: ODIN Non-Admin Reason: IV Running Tizanidine HCl (Tizanidine Hcl 4 Mg Tablet) 2 mg PO TID [facility] Last Admin: 09/11/22 10:09 Dose: 2 mg Documented By: ODIN Triamcinolone Acetonide (Triamcinolone Acet 0.1 % Cream 15 Gm Tube) 1 appl TOPICAL BID PRN; Protocol PRN Reason: eczema Vitamin D (Cholecalciferol (Vitamin D3) 25 Mcg Tablet) 25 mcg PO DAILY [facility] Last Admin: 09/11/22 10:08 Dose: 25 mcg Documented By: ODIN Labs CBC & Chem 7: 09/11/22 06:34 09/11/22 06:34 Labs: Laboratory Results - last 24 hr 09/10/22 09/10/22 09/10/22 18:11 18:11 18:11 MCV MCH MCHC RDW Plt Count MPV Absolute Nucleated RBC Nucleated RBC % (auto) Anion Gap Estim Creat Clear Calc Estimated GFR Random Glucose Calcium Iron TIBC % Saturation Unsat Iron Binding Ferritin Vitamin B12 Urine Color [place] A Urine Appearance Clear Urine pH 7.0 Ur Specific [place] 1.010 Urine Protein 30 (1+) H Urine Glucose (UA) Negative Urine Ketones Negative Urine Blood Large (3+) H Urine Nitrite Negative Ur Leukocyte Esterase Trace H Urine RBC >20 H Urine WBC 0-5 Ur Squamous Epith Cells 0-2 Urine Bacteria 3+ Hyaline Casts 0-2 Urine Eosinophils % 0.0 Ur Random Sodium 80.0 Ur Random Potassium 13.8 Urine Creatinine 33.52 09/11/22 09/11/22 09/11/22 06:34 06:34 06:34 MCV 85.8 MCH 27.6 MCHC 32.2 RDW 16.8 H Plt Count 221 MPV 9.8 Absolute Nucleated RBC 0.000 Nucleated RBC % (auto) 0.0 Anion Gap 21 H Estim Creat Clear Calc 16.5 Estimated GFR 9 Random Glucose 106 Calcium 8.8 Iron 63 TIBC 241 % Saturation 26 Unsat Iron Binding 178 Ferritin 395 H Vitamin B12 1850 H Urine Color Urine Appearance Urine pH Ur Specific [place] Urine Protein Urine Glucose (UA) Urine Ketones Urine Blood Urine Nitrite Ur Leukocyte Esterase Urine RBC Urine WBC Ur Squamous Epith Cells Urine Bacteria Hyaline Casts Urine Eosinophils % Ur Random Sodium Ur Random Potassium Urine Creatinine Microbiology Microbiology Results: Microbiology 09/09/22 16:33 Blood Culture - Preliminary Blood - Venous No growth after 24 hours. 09/09/22 16:33 Blood Culture - Preliminary Blood - Venous No growth after 24 hours. Assessment and Plan (1) Postmenopausal bleeding: Status: Acute (2) Positive occult stool blood test: Status: Acute (3) Acute kidney injury superimposed on CKD: Status: Acute (4) MRSA bacteremia: Status: Acute Plan 67-year-old female with past medical history of osteomyelitis currently on IV antibiotics, hypertension, hypothyroidism, morbid obesity, who presents to the hospital with complaints of vaginal bleeding found to have acute kidney injury # acute kidney injury normal baseline before, peaked at 6.4 in 08/16 while in [facility]. Was on indapamide and Lasix at [facility] for lower extremity edema, Seems prerenal with ATN Continue IV fluids hold nephrotoxic meds Nephrology input appreciated Pending Electropheresis, immunofixation, C3,C4, Urine lytes Intake and output follow bmp closely # vaginal bleeding Ultrasound showed thickened endometrium Patient agreeable to do pelvic exam and endometrial sampling, Dr Haley will follow on Tuesday monitor H and H # positive occult stool blood test No major drop in hemoglobin, remains stable GI input appreciated, to do EGD on Tuesday Patient will think about Colonoscopy # difficulty swallowing speech therapy eval Advanced diet as tolerated # Hx MRSA Bacteremia 2/2 septic knee Diagnosed while in [facility] , on Daptomycin currently renally adjusted dose Continue treatment with daptomycin until 10/03 wound care to follow infectious disease input appreciated # hypothyroidism continue levothyroxine # morbid obesity consider bariatric evaluation outpatient DVT prophylaxis SCDs in the setting of positive GI as well as vaginal bleeding Given patient's kidney injury requiring IV fluids, evaluation for GI bleed patient require overnight hospital inpatient stay for further management and evaluation Quality Stroke Does the patient have a stroke diagnosis?: No VTE Prior VTE?: No VTE Risk Level:: Medical - moderate - high VTE Device Contraindication: N/A - Device Ordered VTE Drug Contraindication: Treatment Not Indicated
[2022-09-11 16:00] VITALS: BP 136/63; PULSE 89; RESP 18; TEMP 37.1; O2SAT 97
--- NOTE | 2022-09-11 16:51 | P.PNNP_ITS ---
Subjective Subjective Date of Service: 09/11/22 Interval history: more awake and alert today feeling better lymphedema at baseline UOP improving Physical Exam Vital Signs: Vital Signs: Last Vital Signs Temp 98.8 F 09/11/22 16:00 Pulse 89 09/11/22 16:00 Resp 18 09/11/22 16:00 BP 136/63 09/11/22 16:00 Pulse Ox 97 09/11/22 16:00 O2 Del Method 09/11/22 16:00 BMI result Body Mass Index 62.5 Const: Other: Constitutional : Awake, interactive, obese, not in distress Neck : Normal inspection, Supple Cardiovascular : RRR, no JVP, +1 bilateral lower extremity edema Respiratory : good bilateral air entry, no crackles, wheezes or rhonchi Gastrointestinal: soft, lax, Normal bowel sounds, Non tender Skin : Warm, Dry, left calf wound covered with dressing with no erythema or drainage Neurological : Alert & oriented x3, No focal deficit Objective Data Labs CBC & Chem 7: 09/11/22 06:34 09/11/22 06:34 Labs: Laboratory Results - last 24 hr 09/10/22 09/10/22 09/10/22 18:11 18:11 18:11 WBC RBC Hgb Hct MCV MCH MCHC RDW Plt Count MPV Absolute Nucleated RBC Nucleated RBC % (auto) Sodium Potassium Chloride Carbon Dioxide Anion Gap BUN Creatinine Estim Creat Clear Calc Estimated GFR Random Glucose Calcium Iron TIBC % Saturation Unsat Iron Binding Ferritin Vitamin B12 Urine Color [place] A Urine Appearance Clear Urine pH 7.0 Ur Specific [place] 1.010 Urine Protein 30 (1+) H Urine Glucose (UA) Negative Urine Ketones Negative Urine Blood Large (3+) H Urine Nitrite Negative Ur Leukocyte Esterase Trace H Urine RBC >20 H Urine WBC 0-5 Ur Squamous Epith Cells 0-2 Urine Bacteria 3+ Hyaline Casts 0-2 Urine Eosinophils % 0.0 Ur Random Sodium 80.0 Ur Random Potassium 13.8 Urine Creatinine 33.52 09/11/22 09/11/22 09/11/22 06:34 06:34 06:34 WBC 7.9 RBC 3.37 L Hgb 9.3 L Hct 28.9 L MCV 85.8 MCH 27.6 MCHC 32.2 RDW 16.8 H Plt Count 221 MPV 9.8 Absolute Nucleated RBC 0.000 Nucleated RBC % (auto) 0.0 Sodium 140 Potassium 3.4 Chloride 91 L Carbon Dioxide 31 H Anion Gap 21 H BUN 104 H Creatinine 4.75 H* Estim Creat Clear Calc 16.5 Estimated GFR 9 Random Glucose 106 Calcium 8.8 Iron 63 TIBC 241 % Saturation 26 Unsat Iron Binding 178 Ferritin 395 H Vitamin B12 1850 H Urine Color Urine Appearance Urine pH Ur Specific [place] Urine Protein Urine Glucose (UA) Urine Ketones Urine Blood Urine Nitrite Ur Leukocyte Esterase Urine RBC Urine WBC Ur Squamous Epith Cells Urine Bacteria Hyaline Casts Urine Eosinophils % Ur Random Sodium Ur Random Potassium Urine Creatinine Microbiology Microbiology Results: Microbiology 09/09/22 16:33 Blood - Venous Blood Culture - Preliminary No growth after 24 hours. 09/09/22 16:33 Blood - Venous Blood Culture - Preliminary No growth after 24 hours. Procedures Date of Service Date of Service: 09/11/22 Assessment & Plan Assessment and plan (1) Positive occult stool blood test: Status: Acute (2) Acute kidney injury superimposed on CKD: Status: Acute (3) Vaginal bleeding: Status: Acute Plan 67-year-old female with past medical history of Left knee septic arthritis s/p I&D 08/16/22 with MRSA found as well as MRSA bacteremia. The patient was on Daptomycin q48 hours for GFR for total of 6 week plan. She presented from SNF for vaginal bleeding. Course now complicated by recurrent LATISHA on baseline normal renal function. 1. LATISHA BL Cr 0.8mg/dL Recent LATISHA at [facility] [place] with Cr peaking 6.4mg/dL 08/16/22 when she was originally admitted for left knee septic arthritis. With IVF support Cr quickly improved to 4.0mg/dL. She was discharged. She tells me she does not remember being seen by a [employer] Officer, however it appears she was evaluated by kidney team there. She is frustrated that she never knew about her LATISHA there. In SNF had lasix and idapamide started, she is not sure why. She had poor PO intake and soon enough had reduced UOP. She now presents with Cr near 5's Oliguria markedly improved after IVF support Serum Eos elevated Differential includes Infectious GN (complements pending) vs AIN (Urine Eos negative) vs Pre-renal azotemia. Obstruction ruled out by CT scan So far improvement with IVF support Plan: - 0.9% saline at 125cc/hr - renal panel daily - pure wick - C3/ C4 - no indication for [employer] yet - patient wants to establish f/u with [facility]. She had seen a variety of nephrologists in the past at [facility] [place], but she felt uncomfortable with their communication and follow up. I provided her with f/u instructions. Time Spent With Patient Time: Total time spent is greater than 50% in coordination of care (as documented) at patient's floor/unit and/or counseling patient: Progress Note: Quality Stroke Does the patient have a stroke diagnosis?: No
[2022-09-11 19:05] VITALS: BMI 62.6
[2022-09-11 20:00] VITALS: BP 139/63; PULSE 82; RESP 18; TEMP 37.1; O2SAT 97
[2022-09-11] MEDS: Magnesium Oxide 400 MG TABLET PO (22:13)
[2022-09-11 23:59] VITALS: BP 156/55; PULSE 96; RESP 18; TEMP 36.6; O2SAT 96
[2022-09-12] MEDS: 0.9 % Sodium Chloride 1,000 ML 100 ML IVCONT ×2 (04:25→14:54)
[2022-09-12 06:16] LABS: Hemoglobin 9.3 g/dl (12.0-16.0); Mean Platelet Volume 9.4 fL (9.4-12.3); Platelet Count 206 X10*3/uL (160-400); Red Blood Count 3.45 X10*6/uL (4.20-5.50); White Blood Count 9.6 X10*3/uL (4.8-10.8)
[2022-09-12 06:24] LABS: INTERNATIONAL NORM RATIO 1.2 (0.9-1.1); Prothrombin Time 13.6 SEC (10.0-13.1)
[2022-09-12 06:43] LABS: Anion Gap 20 (12-20); Blood Urea Nitrogen 87 mg/dL (9-16); Calcium 8.6 mg/dL (8.4-10.2); Carbon Dioxide 29 mmol/L (22-29); Chloride 96 mmol/L (96-108); Estimated Glomerular Filt Rate 13; Glucose Random 101 mg/dL (60-115); Potassium 4.3 mmol/L (3.3-5.1); Sodium 141 mmol/L (135-145)
[2022-09-12 06:48] LABS: Alanine Aminotransferase 14 U/L (0-31); Albumin Level 2.7 g/dL (3.5-5.0); Alkaline Phosphatase 131 U/L (39-117); Aspartate Amino Transferase 9 U/L (5-31); Bilirubin Direct 0.5 mg/dL (0.0-0.5); Bilirubin Total 0.8 mg/dL (0.0-1.0); Total Protein 6.3 g/dL (6.5-8.0)
[2022-09-12 08:00] VITALS: BP 138/64; PULSE 89; RESP 20; TEMP 36.6; O2SAT 98
[2022-09-12] MEDS: Cholecalciferol (Vitamin D3) 25 MCG TABLET PO (09:40)
[2022-09-12] MEDS: Potassium Chloride ER 20 MEQ TAB.ER.PRT PO (09:40)
[2022-09-12] MEDS: Multivitamin TABLET 1 TAB PO (09:40)
[2022-09-12] MEDS: Pravastatin Sodium 40 MG TABLET PO (09:40)
[2022-09-12] MEDS: Diclofenac Sodium Delayed Rel 75 MG TABLET.DR PO ×2 (09:40→19:44)
[2022-09-12] MEDS: DAPTOmycin 700 MG in 0.9 % Sodium Chloride 50 ML 100 MG IV (09:41)
[2022-09-12] MEDS: DULoxetine HCl 60 MG CAPSULE.DR PO (09:41)
[2022-09-12] MEDS: 0.9 % Sodium Chloride Flush 3 ML SYRINGE IVFLUSH ×2 (09:41→19:45)
[2022-09-12] MEDS: TiZANidine HCL 4 MG TABLET 2 MG PO ×3 (09:42→19:44)
--- NOTE | 2022-09-12 11:21 | P.PNIM_ITS ---
Subjective Subjective Date of Service: 09/12/22 Interval History: The patient was seen and evaluated this morning Laying in bed, feels comfortable overall with no recurrence of the bleeding Denies any fever, chills or shortness of breath No reported other overnight events Systemic review: No fever, chills or weakness No chest pain, palpitation No shortness of breath or coughing No abdominal pain, difficulty swallowing No urinary symptoms Left calf wound Physical Exam Vital Signs: Vital Signs: Last Vital Signs Temp 97.9 F 09/12/22 08:00 Pulse 89 09/12/22 08:00 Resp 20 09/12/22 08:00 BP 138/64 09/12/22 08:00 Pulse Ox 98 09/12/22 08:00 O2 Del Method 09/12/22 08:00 BMI result Body Mass Index 62.6 Const: Other: Constitutional : Awake, interactive, obese, not in distress Neck : Normal inspection, Supple Cardiovascular : RRR, no JVP, +1 bilateral lower extremity edema Respiratory : good bilateral air entry, no crackles, wheezes or rhonchi Gastrointestinal: soft, lax, Normal bowel sounds, Non tender Skin : Warm, Dry, left calf wound covered with dressing with no erythema or drainage Neurological : Alert & oriented x3, No focal deficit Objective Data Active Medications Acetaminophen (Acetaminophen 325 Mg Tablet) 650 mg PO Q6H PRN PRN Reason: Pain, Mild (Pain Scale 1-3) Bisacodyl (Bisacodyl 10 Mg Supp.Rect) 10 mg NE Q24H PRN PRN Reason: Constipation Diclofenac Sodium (Diclofenac Sodium Delayed Rel 75 Mg Tablet.) 75 mg PO BID [facility] Last Admin: 09/12/22 09:40 Dose: 75 mg Documented By: LARY Docusate Sodium (Docusate Sodium 100 Mg Capsule) 100 mg PO DAILY PRN PRN Reason: Constipation Duloxetine HCl (Duloxetine Hcl 60 Mg Capsule.) 60 mg PO DAILY [facility] Last Admin: 09/12/22 09:41 Dose: 60 mg Documented By: LARY Glucagon (Glucagon,Human Recombinant 1 Mg/Ml Vial) 1 mg SUBCUT Q20M PRN PRN Reason: bs<70 and unresponsive Hydromorphone HCl (Hydromorphone Hcl 1 Mg/Ml Syringe) 1 mg IVPUSH Q4H PRN; Protocol PRN Reason: Pain, Severe (Pain Scale 7-10) Last Admin: 09/11/22 15:00 Dose: 1 mg Documented By: YADI Hydromorphone HCl (Hydromorphone Hcl 4 Mg Tablet) 8 mg PO Q4H PRN PRN Reason: Pain (Scale Score 7-10) Last Admin: 09/12/22 09:41 Dose: 8 mg Documented By: LARY Sodium Chloride (Ns) 1,000 mls @ 100 mls/hr IVCONT .Q10H [facility] Last Admin: 09/12/22 04:25 Dose: 100 mls/hr Documented By: PHILIPPE Daptomycin 700 mg/ Sodium (Chloride) 64 mls @ 100 mls/hr IV Q48H [facility] Last Infusion: 09/12/22 10:36 Dose: 0 mls/hr Documented By: LARY Lactulose (Lactulose 20 Gm/30 Ml Solution) 20 gm PO Q24H PRN PRN Reason: Constipation Levothyroxine Sodium (Levothyroxine Sodium 175 Mcg Tablet) 175 mcg PO SUMOTUWETHFR@0630 [facility] Last Admin: 09/11/22 10:08 Dose: 175 mcg Documented By: ODIN Levothyroxine Sodium (Levothyroxine Sodium 175 Mcg Tablet) 262.5 mcg PO SA@0630 [facility] Last Admin: 09/11/22 06:16 Dose: 262.5 mcg Documented By: LAKSHMI Magnesium Hydroxide (Milk Of Magnesia 30 Ml Oral.Susp) 30 ml PO Q24H PRN PRN Reason: Constipation Magnesium Oxide (Magnesium Oxide 400 Mg Tablet) 400 mg PO BEDTIME [facility] Last Admin: 09/11/22 22:13 Dose: 400 mg Documented By: PHILIPPE Meclizine HCl (Meclizine Hcl 25 Mg Tablet) 25 mg PO BID PRN PRN Reason: Nausea And Vomiting Multivitamins/Vitamin C (Multivitamin Tablet) 1 tab PO DAILY [facility] Last Admin: 09/12/22 09:40 Dose: 1 tab Documented By: LARY Nystatin (Nystatin Powder 15 Gm Bottle) 1 appl TOPICAL BID [facility]; Protocol Last Admin: 09/12/22 09:42 Dose: Not Given Documented By: LARY Non-Admin Reason: hold, interdry Ondansetron HCl (Ondansetron Hcl 4 Mg/2 Ml Vial) 4 mg IVPUSH Q8H PRN PRN Reason: Nausea and Vomiting Oxybutynin Chloride (Oxybutynin Chloride Er 5 Mg Tab.Er.24) 10 mg PO DAILY [facility] Last Admin: 09/12/22 09:40 Dose: 10 mg Documented By: LARY Oxycodone HCl (Oxycodone Hcl Immed Release 5 Mg Tablet) 5 mg PO Q3H PRN PRN Reason: Pain, Severe (Pain Scale 7-10) Last Admin: 09/11/22 07:56 Dose: 5 mg Documented By: ODIN Pharmacy Consult (Consult Rx Perform Med Rec) 1 each MISCELLANE ONCE PRN PRN Reason: Consult order Potassium Chloride (Potassium Chloride Er 20 Meq Tab.Er.Prt) 20 meq PO DAILY [facility] Last Admin: 09/12/22 09:40 Dose: 20 meq Documented By: LARY Pravastatin Sodium (Pravastatin Sodium 40 Mg Tablet) 40 mg PO DAILY [facility] Last Admin: 09/12/22 09:40 Dose: 40 mg Documented By: LARY Sodium Chloride (0.9 % Sodium Chloride Flush 3 Ml Syringe) 3 ml IVFLUSH QSHIFT [facility] Last Admin: 09/12/22 09:41 Dose: 3 ml Documented By: LARY Tizanidine HCl (Tizanidine Hcl 4 Mg Tablet) 2 mg PO TID [facility] Last Admin: 09/12/22 09:42 Dose: 2 mg Documented By: LARY Triamcinolone Acetonide (Triamcinolone Acet 0.1 % Cream 15 Gm Tube) 1 appl TO PICAL BID PRN; Protocol PRN Reason: eczema Vitamin D (Cholecalciferol (Vitamin D3) 25 Mcg Tablet) 25 mcg PO DAILY [facility] Last Admin: 09/12/22 09:40 Dose: 25 mcg Documented By: LARY Labs CBC & Chem 7: 09/12/22 05:50 09/12/22 05:50 Labs: Laboratory Results - last 24 hr 09/12/22 09/12/22 09/12/22 05:50 05:50 05:50 MCV 87.0 MCH 27.0 MCHC 31.0 RDW 17.0 H Plt Count 206 MPV 9.4 Absolute Nucleated RBC 0.000 Nucleated RBC % (auto) 0.0 PT 13.6 H INR 1.2 H Anion Gap Estim Creat Clear Calc Estimated GFR Random Glucose Calcium Total Bilirubin 0.8 Direct Bilirubin 0.5 AST 9 D ALT 14 Alkaline Phosphatase 131 H D Total Protein 6.3 L Albumin 2.7 L 09/12/22 05:50 MCV MCH MCHC RDW Plt Count MPV Absolute Nucleated RBC Nucleated RBC % (auto) PT INR Anion Gap 20 Estim Creat Clear Calc 22.0 Estimated GFR 13 Random Glucose 101 Calcium 8.6 Total Bilirubin Direct Bilirubin AST ALT Alkaline Phosphatase Total Protein Albumin Microbiology Microbiology Results: Microbiology 09/09/22 16:33 Blood Culture - Preliminary Blood - Venous No growth after 48 hours. 09/09/22 16:33 Blood Culture - Preliminary Blood - Venous No growth after 48 hours. Assessment and Plan (1) MRSA bacteremia: Status: Acute (2) Acute kidney injury superimposed on CKD: Status: Acute (3) Postmenopausal bleeding: Status: Acute Plan 67-year-old female with past medical history of osteomyelitis currently on IV antibiotics, hypertension, hypothyroidism, morbid obesity, who presents to the hospital with complaints of vaginal bleeding found to have acute kidney injury # acute kidney injury normal baseline before, peaked at 6.4 in 08/16 while in [facility] [place]. Was on indapamide and Lasix at [facility] for lower extremity edema, Seems prerenal with ATN Trending down , creatinine 3.5 Continue IV fluids hold nephrotoxic meds Nephrology input appreciated Pending Electropheresis, immunofixation, C3,C4, Urine lytes Intake and output follow bmp closely # vaginal bleeding Ultrasound showed thickened endometrium Patient agreeable to do pelvic exam and endometrial sampling, Dr Haley will follow tomorrow monitor H and H # positive occult stool blood test No major drop in hemoglobin, remains stable GI input appreciated, to do EGD on Tuesday Patient does not want to do Colonoscopy Keep NPO post midnight # difficulty swallowing speech therapy eval Advanced diet as tolerated # Hx MRSA Bacteremia 2/2 septic knee Diagnosed while in [facility] [place] , on Daptomycin currently renally adjusted dose Continue treatment with daptomycin until 10/03 wound care to follow infectious disease input appreciated # hypothyroidism continue levothyroxine # morbid obesity consider bariatric evaluation outpatient DVT prophylaxis SCDs in the setting of positive GI as well as vaginal bleeding Given patient's kidney injury requiring IV fluids, evaluation for GI bleed patient require overnight hospital inpatient stay for further management and evaluation pending EGD and pelvic exam Quality Stroke Does the patient have a stroke diagnosis?: No VTE Prior VTE?: No VTE Risk Level:: Medical - moderate - high VTE Device Contraindication: N/A - Device Ordered VTE Drug Contraindication: Treatment Not Indicated
[2022-09-12 12:00] VITALS: BP 142/72; PULSE 87; RESP 16; TEMP 36.7; O2SAT 98
--- NOTE | 2022-09-12 15:46 | PM.PNNEP ---
Subjective Subjective Date of Service: 09/12/22 Interval history: feeling better day by day says LE are chronic lymphedema denies increased edema more than usual Cr falling like a stone she reinforced wanting to follow up in our [place] office. She is scared that no one was watching her Lasix/Indapamide combo at rehab. Physical Exam Vital Signs: Vital Signs: Last Vital Signs Temp 98.1 F 09/12/22 12:00 Pulse 87 09/12/22 12:00 Resp 16 09/12/22 12:00 BP 142/72 H 09/12/22 12:00 Pulse Ox 98 09/12/22 12:00 O2 Del Method 09/12/22 12:00 BMI result Body Mass Index 62.6 Const: Other: Constitutional : Awake, interactive, obese, not in distress Neck : Normal inspection, Supple Cardiovascular : RRR, no JVP, +1 bilateral lower extremity edema Respiratory : good bilateral air entry, no crackles, wheezes or rhonchi Gastrointestinal: soft, lax, Normal bowel sounds, Non tender Skin : Warm, Dry, left calf wound covered with dressing with no erythema or drainage Neurological : Alert & oriented x3, No focal deficit Objective Data Labs CBC & Chem 7: 09/12/22 05:50 09/12/22 05:50 Labs: Laboratory Results - last 24 hr 09/12/22 09/12/22 09/12/22 05:50 05:50 05:50 WBC 9.6 RBC 3.45 L Hgb 9.3 L Hct 30.0 L MCV 87.0 MCH 27.0 MCHC 31.0 RDW 17.0 H Plt Count 206 MPV 9.4 Absolute Nucleated RBC 0.000 Nucleated RBC % (auto) 0.0 PT 13.6 H INR 1.2 H Sodium Potassium Chloride Carbon Dioxide Anion Gap BUN Creatinine Estim Creat Clear Calc Estimated GFR Random Glucose Calcium Total Bilirubin 0.8 Direct Bilirubin 0.5 AST 9 D ALT 14 Alkaline Phosphatase 131 H D Total Protein 6.3 L Albumin 2.7 L 09/12/22 05:50 WBC RBC Hgb Hct MCV MCH MCHC RDW Plt Count MPV Absolute Nucleated RBC Nucleated RBC % (auto) PT INR Sodium 141 Potassium 4.3 D Chloride 96 Carbon Dioxide 29 Anion Gap 20 BUN 87 H Creatinine 3.56 H Estim Creat Clear Calc 22.0 Estimated GFR 13 Random Glucose 101 Calcium 8.6 Total Bilirubin Direct Bilirubin AST ALT Alkaline Phosphatase Total Protein Albumin Microbiology Microbiology Results: Microbiology 09/09/22 16:33 Blood - Venous Blood Culture - Preliminary No growth after 48 hours. 09/09/22 16:33 Blood - Venous Blood Culture - Preliminary No growth after 48 hours. Procedures Date of Service Date of Service: 09/12/22 Assessment & Plan Assessment and plan (1) Positive occult stool blood test: Status: Acute (2) Acute kidney injury superimposed on CKD: Status: Acute (3) Vaginal bleeding: Status: Acute Plan 67-year-old female with past medical history of Left knee septic arthritis s/p I&D 08/16/22 with MRSA found as well as MRSA bacteremia. The patient was on Daptomycin q48 hours for GFR for total of 6 week plan. She presented from SNF for vaginal bleeding. Course now complicated by recurrent LATISHA on baseline normal renal function. 1. LATISHA BL Cr 0.8mg/dL [place] [facility] [place] Cr peaking 6.4mg/dL 08/16/22 when she was originally admitted for left knee septic arthritis. With IVF support Cr quickly improved to 4.0mg/dL. She was discharged. She tells me she does not remember being seen by a Device Sales Consultant, however it appears she was evaluated by kidney team there. She is frustrated that she never knew about her LATISHA there. In SNF had lasix and idapamide started, she is not sure why. She had poor PO intake and soon enough had reduced UOP. She now presents with Cr near 5's Oliguria markedly improved after IVF support Serum Eos elevated Differential includes Infectious GN (complements pending) vs AIN (Urine Eos negative) vs Pre-renal azotemia. Obstruction ruled out by CT scan So far improvement with IVF support Plan: - 0.9% saline at 125cc/hr - renal panel daily - pure wick - no indication for AIR QUALITY ENGINEER - patient wants to establish f/u with [facility]. She had seen a variety of nephrologists in the [place] [facility] [place] but she felt uncomfortable with their communication and follow up. I provided her with f/u instructions. Time Spent With Patient Time: Total time spent is greater than 50% in coordination of care (as documented) at patient's floor/unit and/or counseling patient: Progress Note: Quality Stroke Does the patient have a stroke diagnosis?: No
[2022-09-12 15:55] VITALS: BP 146/64; PULSE 83; RESP 18; TEMP 36.7; O2SAT 97
[2022-09-12 19:17] VITALS: BP 154/66; PULSE 85; RESP 18; TEMP 37.1; O2SAT 97
[2022-09-12] MEDS: Magnesium Oxide 400 MG TABLET PO (19:44)
[2022-09-12] MEDS: Nystatin Powder 15 GM BOTTLE 1 APPL TOPICAL (19:50)
[2022-09-12 23:32] VITALS: BP 156/65; PULSE 85; RESP 15; TEMP 36.2; O2SAT 92
[2022-09-13] VITALS (9 sets, daily range): BP systolic 137–169; BP diastolic 53–82; PULSE 82–104; RESP 16–20; TEMP 36.1–36.9; O2SAT 96–100; BMI 62.6
--- NOTE | 2022-09-13 | ECG_ITS ---
Test Reason : cp Blood Pressure : / mmHG Vent. Rate : 086 BPM Atrial Rate : 086 BPM P-R Int : 172 ms QRS Dur : 094 ms QT Int : 380 ms P-R-T Axes : 057 007 044 degrees QTc Int : 454 ms Normal sinus rhythm Normal ECG When compared with ECG of 30-APR-2016 17:22, Premature ventricular complexes are no longer Present Referred By: Susy Staley Electronically Signed By:IRVIN ASHRAF MD
[2022-09-13] MEDS: 0.9 % Sodium Chloride 1,000 ML 100 ML IVCONT ×2 (00:08→18:32)
[2022-09-13] MEDS: Levothyroxine Sodium 175 MCG TABLET PO (06:15)
[2022-09-13 06:16] LABS: Hematocrit 30.3 % (37.0-47.0); Hemoglobin 9.5 g/dl (12.0-16.0); Mean Corpuscular HGB Conc 31.4 g/dl (31.0-35.0); Mean Corpuscular Hemoglobin 27.4 pg (27.0-33.0); Mean Corpuscular Volume 87.3 fL (80.0-98.0); Mean Platelet Volume 9.5 fL (9.4-12.3); Platelet Count 248 X10*3/uL (160-400); Red Blood Count 3.47 X10*6/uL (4.20-5.50); Red Cell Distribution Width 16.9 % (11.0-16.0); White Blood Count 9.6 X10*3/uL (4.8-10.8)
[2022-09-13 06:30] LABS: Anion Gap 21 (12-20); Blood Urea Nitrogen 65 mg/dL (9-16); Calcium 8.6 mg/dL (8.4-10.2); Carbon Dioxide 26 mmol/L (22-29); Chloride 96 mmol/L (96-108); Estimated Glomerular Filt Rate 19; Glucose Random 114 mg/dL (60-115); Potassium 3.6 mmol/L (3.3-5.1); Sodium 139 mmol/L (135-145)
[2022-09-13] MEDS: Multivitamin TABLET 1 TAB PO (08:45)
[2022-09-13] MEDS: TiZANidine HCL 4 MG TABLET 2 MG PO ×2 (08:45→20:07)
[2022-09-13] MEDS: Pravastatin Sodium 40 MG TABLET PO (08:45)
[2022-09-13] MEDS: Potassium Chloride ER 20 MEQ TAB.ER.PRT PO (08:45)
[2022-09-13] MEDS: Cholecalciferol (Vitamin D3) 25 MCG TABLET PO (08:46)
[2022-09-13] MEDS: Nystatin Powder 15 GM BOTTLE 1 APPL TOPICAL ×2 (08:47→20:09)
[2022-09-13] MEDS: DULoxetine HCl 60 MG CAPSULE.DR PO (08:47)
[2022-09-13] MEDS: 0.9 % Sodium Chloride Flush 3 ML SYRINGE IVFLUSH ×3 (08:56→20:09)
--- NOTE | 2022-09-13 09:41 | PC.NURSE ---
patient from floor to short stay, patient stated had apple sauce with medications around 08:30, . Anti spoke with patient, back to floor for a potential afternoon procedure, reported back to floor nurse.
--- NOTE | 2022-09-13 09:45 | MHC.SLORD ---
Speech Language Pathology Order Status: Per MD, pt is NPO for EGD today. No PO trials given. Once cleared for PO, recommend continue with chopped diet (NDD3) and thin liquids per MANAGER PROCESS EXCELLENCE recommendation 09/10.
--- NOTE | 2022-09-13 11:13 | P.PNOB_ITS ---
DOCTOR OF RADIOLOGY - Subjective Subjective Date of Service: 09/13/22 Interval history: The patient changed her mind regarding having a manufacturing area manager evaluation, pelvic exam and possible endometrial biopsy for postmenopausal bleeding. The patient 's bleeding is of unknown origin, vaginal versus rectal, had positive guaiac test. The patient is declining colonoscopy. Endometrial stripe by ultrasound was 9 mm . MANAGER PROCESS EXCELLENCE Physical Exam Vitals Vital signs: Temp Pulse Resp BP Pulse Ox O2 Del Method 98.4 F 88 16 151/70 H 97 09/13/22 08:00 09/13/22 08:00 09/13/22 08:00 09/13/22 08:00 09/13/22 08:00 09/13/22 08:00 BMI result Body Mass Index 62.6 Female Genitalia (Pelvic) Bladder/Urethra: Normal meatus Vulva: No lesions Vagina: Nontender, No erythema and No lesions Cervix: Grossly normal Uterus: Normal size Adnexa/Parametria: Adnexal Tenderness: None, Adnexal Mass: None, Parametrial Tenderness: None and Parametrial Mass: None Additional Comments: No evidence of blood per vagina DOCTOR OF RADIOLOGY - Prog Note: Results Labs CBC & Chem 7: 09/13/22 05:48 09/13/22 05:48 Labs: Laboratory Results - last 24 hr 09/13/22 09/13/22 05:48 05:48 WBC 9.6 RBC 3.47 L Hgb 9.5 L Hct 30.3 L MCV 87.3 MCH 27.4 MCHC 31.4 RDW 16.9 H Plt Count 248 MPV 9.5 Absolute Nucleated RBC 0.000 Nucleated RBC % (auto) 0.0 Sodium 139 Potassium 3.6 Chloride 96 Carbon Dioxide 26 Anion Gap 21 H BUN 65 H Creatinine 2.53 H Estim Creat Clear Calc 31.0 Estimated GFR 19 Random Glucose 114 Calcium 8.6 DOCTOR OF RADIOLOGY - A/P (1) Positive occult stool blood test: Status: Acute (2) Vaginal bleeding: Status: Acute Assessment and Plan: Discussed with the patient that it is unsure whether she is having vaginal bleeding or rectal bleeding, however guaiac test was positive and the patient is declining colonoscopy. Explained to the patient that her pelvic exam shows no evidence of blood per vagina but vaginal bleeding cannot be ruled out. In addition, discussed with the patient that thickened endometrium, above 4 mm, by ultrasound in a setting of postmenopausal bleeding is an indication for endometrial sampling to rule out endometrial pathology including endometrial hyperplasia, malignancy or polyp. However, thickened endometrium by ultrasound without postmenopausal bleeding is not an indication for endometrial sampling. Since it is unsure whether the patient is having vaginal bleeding, I offered the patient an attempt at endometrial biopsy. EMB was attempted, the patient could not tolerated and the procedure was aborted per her request, see procedure note. In the high likely scenario if the pathology results shows insufficient endometrial tissue for diagnosis, I recommended to the patient the next step is a hysteroscopy D&C under anesthesia to rule out endometrial pathology, concurrently with colonoscopy. Assessment/Plan Procedure/Diagnosis: Procedures Operation Date: 09/13/22 14:30 <No data on this case meets the specified criteria> Time Spent With Patient Time: Total time spent is greater than 50% in coordination of care (as documented) at patient's floor/unit and/or counseling patient: Quality Measures - MANAGER PROCESS EXCELLENCE H&P VTE Prior VTE?: No VTE Risk Level:: Medical - moderate - high VTE Device Contraindication: N/A - Device Ordered VTE Drug Contraindication: Treatment Not Indicated Endometrial Biopsy Details: The patient was counseled regarding the indication and benefits of endometrial sampling to rule out endometrial pathology including not limited to endometrial hyperplasia or endometrial cancer and others; The alternatives (Either do nothing vs. hysteroscopy D&C) & the risks were discussed with the patient including but not limited: pain, uterine perforation, bleeding, infection, possible injury to bladder, bowel, ureter, possible need for blood transfusion with all its possible risks. The patient verbalized understanding all questions answered and signed consent. The patient was placed into the dorsal lithotomy position; a speculum was inserted in the vagina. Using aseptic technique for the procedure, the cervix was cleansed with Betadine. The anterior lip of the cervix was grasped with a single tooth tenaculum. The uterus was sounded to 6 cm with a 4 mm Pipelle was used. After one pass with minimal tissue retrieved, the patient was intolerant to the pain and requested to abort the procedure. Tissues samples that were obtained were placed in formalin, in a patient labeled container and sent to the pathology department. At the end of the procedure, there was minimal bleeding noted This note was generated with a voice recognition program. Some errors may have been overlooked during the review of this note. Sometimes these errors may affect the content or meaning of a given sentence. [id number] Biopsy
--- NOTE | 2022-09-13 11:36 | MHC.CLN ---
RE: CONSULT PT WITH INCREASED NUTRITION RISK R/T PRESSURE INJURY PT IS CURRENTLY NPO PENDING EGD PER MD WHEN DIET TO ADVANCE; RECOMMEND ADDING ENSURE MAX BID TO INCREASE KCALS AND PROMOTE WOUND HEALING SUPP TO PROVIDE 300KCALS, 60G PROTEIN MONITOR PO INTAKE CLOSELY SEE FULL CLINICAL NUTRITION ASSESSMENT
--- NOTE | 2022-09-13 11:47 | P.PNIM_ITS ---
Subjective Subjective Date of Service: 09/13/22 Interval History: The patient was seen and evaluated this morning Laying in bed, feels comfortable overall with no recurrence of the bleeding Plan for EGD today Creatinine continued to trend down No reported other overnight events Systemic review: No fever, chills or weakness No chest pain, palpitation No shortness of breath or coughing No abdominal pain, difficulty swallowing No urinary symptoms Left calf wound Physical Exam Vital Signs: Vital Signs: Last Vital Signs Temp 98.0 F 09/13/22 11:26 Pulse 84 09/13/22 11:26 Resp 17 09/13/22 11:26 BP 141/69 H 09/13/22 11:26 Pulse Ox 96 09/13/22 11:26 O2 Del Method 09/13/22 11:26 BMI result Body Mass Index 62.6 Const: Other: Constitutional : Awake, interactive, obese, not in distress Neck : Normal inspection, Supple Cardiovascular : RRR, no JVP, +1 bilateral lower extremity edema Respiratory : good bilateral air entry, no crackles, wheezes or rhonchi Gastrointestinal: soft, lax, Normal bowel sounds, Non tender Skin : Warm, Dry, left calf wound covered with dressing with no erythema or drainage Neurological : Alert & oriented x3, No focal deficit Objective Data Active Medications Acetaminophen (Acetaminophen 325 Mg Tablet) 650 mg PO Q6H PRN PRN Reason: Pain, Mild (Pain Scale 1-3) Bisacodyl (Bisacodyl 10 Mg Supp.Rect) [address] Q24H PRN PRN Reason: Constipation Docusate Sodium (Docusate Sodium 100 Mg Capsule) 100 mg PO DAILY PRN PRN Reason: Constipation Duloxetine HCl (Duloxetine Hcl 60 Mg Capsule.Dr) 60 mg PO DAILY HANNAH Last Admin: 09/13/22 08:47 Dose: 60 mg Documented By: PASQUALE Glucagon (Glucagon,Human Recombinant 1 Mg/Ml Vial) 1 mg SUBCUT Q20M PRN PRN Reason: bs<70 and unresponsive Hydromorphone HCl (Hydromorphone Hcl 1 Mg/Ml Syringe) 1 mg IVPUSH Q4H PRN; Protocol PRN Reason: Pain, Severe (Pain Scale 7-10) Last Admin: 09/11/22 15:00 Dose: 1 mg Documented By: YADI Hydromorphone HCl (Hydromorphone Hcl 4 Mg Tablet) 8 mg PO Q4H PRN PRN Reason: Pain (Scale Score 7-10) Last Admin: 09/13/22 06:14 Dose: 8 mg Documented By: MEGHA Daptomycin 700 mg/ Sodium (Chloride) 64 mls @ 100 mls/hr IV Q48H [facility] Last Infusion: 09/12/22 10:36 Dose: 0 mls/hr Documented By: LARY Lactulose (Lactulose 20 Gm/30 Ml Solution) 20 gm PO Q24H PRN PRN Reason: Constipation Levothyroxine Sodium (Levothyroxine Sodium 175 Mcg Tablet) 175 mcg PO SUMOTUWETHFR@0630 [facility] Last Admin: 09/13/22 06:15 Dose: 175 mcg Documented By: MEGHA Levothyroxine Sodium (Levothyroxine Sodium 175 Mcg Tablet) 262.5 mcg PO SA@0630 [facility] Last Admin: 09/11/22 06:16 Dose: 262.5 mcg Documented By: YVAN Magnesium Hydroxide (Milk Of Magnesia 30 Ml Oral.Susp) 30 ml PO Q24H PRN PRN Reason: Constipation Magnesium Oxide (Magnesium Oxide 400 Mg Tablet) 400 mg PO BEDTIME [facility] Last Admin: 09/12/22 19:44 Dose: 400 mg Documented By: MEGHA Meclizine HCl (Meclizine Hcl 25 Mg Tablet) 25 mg PO BID PRN PRN Reason: Nausea And Vomiting Multivitamins/Vitamin C (Multivitamin Tablet) 1 tab PO DAILY [facility] Last Admin: 09/13/22 08:45 Dose: 1 tab Documented By: PASQUALE Nystatin (Nystatin Powder 15 Gm Bottle) 1 appl TOPICAL BID [facility]; Protocol Last Admin: 09/13/22 08:47 Dose: 1 appl Documented By: PASQUALE Ondansetron HCl (Ondansetron Hcl 4 Mg/2 Ml Vial) 4 mg IVPUSH Q8H PRN PRN Reason: Nausea and Vomiting Oxybutynin Chloride (Oxybutynin Chloride Er 5 Mg Tab.Er.24) 10 mg PO DAILY [facility] Last Admin: 09/13/22 08:44 Dose: 10 mg Documented By: PASQUALE Oxycodone HCl (Oxycodone Hcl Immed Release 5 Mg Tablet) 5 mg PO Q3H PRN PRN Reason: Pain, Severe (Pain Scale 7-10) Last Admin: 09/11/22 07:56 Dose: 5 mg Documented By: ODIN Pharmacy Consult (Consult Rx Perform Med Rec) 1 each MISCELLANE ONCE PRN PRN Reason: Consult order Potassium Chloride (Potassium Chloride Er 20 Meq Tab.Er.Prt) 20 meq PO DAILY [facility] Last Admin: 09/13/22 08:45 Dose: 20 meq Documented By: PASQUALE Pravastatin Sodium (Pravastatin Sodium 40 Mg Tablet) 40 mg PO DAILY [facility] Last Admin: 09/13/22 08:45 Dose: 40 mg Documented By: PASQUALE Sodium Chloride (0.9 % Sodium Chloride Flush 3 Ml Syringe) 3 ml IVFLUSH QSHIFT [facility] Last Admin: 09/13/22 08:56 Dose: 3 ml Documented By: PASQUALE Tizanidine HCl (Tizanidine Hcl 4 Mg Tablet) 2 mg PO TID [facility] Last Admin: 09/13/22 08:45 Dose: 2 mg Documented By: PASQUALE Triamcinolone Acetonide (Triamcinolone Acet 0.1 % Cream 15 Gm Tube) 1 appl TOPICAL BID PRN; Protocol PRN Reason: eczema Vitamin D (Cholecalciferol (Vitamin D3) 25 Mcg Tablet) 25 mcg PO DAILY [facility] Last Admin: 09/13/22 08:46 Dose: 25 mcg Documented By: PASQUALE Labs CBC & Chem 7: 09/13/22 05:48 09/13/22 05:48 Labs: Laboratory Results - last 24 hr 09/13/22 09/13/22 05:48 05:48 MCV 87.3 MCH 27.4 MCHC 31.4 RDW 16.9 H Plt Count 248 MPV 9.5 Absolute Nucleated RBC 0.000 Nucleated RBC % (auto) 0.0 Anion Gap 21 H Estim Creat Clear Calc 31.0 Estimated GFR 19 Random Glucose 114 Calcium 8.6 Assessment and Plan (1) MRSA bacteremia: Status: Acute (2) Postmenopausal bleeding: Status: Acute (3) Positive occult stool blood test: Status: Acute (4) Acute kidney injury superimposed on CKD: Status: Acute Plan 67-year-old female with past medical history of osteomyelitis currently on IV antibiotics, hypertension, hypothyroidism, morbid obesity, who presents to the hospital with complaints of vaginal bleeding found to have acute kidney injury # acute kidney injury normal baseline before, peaked at 6.4 in [place] [facility] [place] indapamide and Lasix at SNF for lower extremity edema, Seems prerenal with ATN Trending down , creatinine 2.5 Discontinue IV fluids hold nephrotoxic meds Nephrology input appreciated Pending Electropheresis, immunofixation, C3,C4, Urine lytes Intake and output follow bmp closely # vaginal bleeding Ultrasound showed thickened endometrium Dr Haley did pelvic exam and had biopsies done, suggested hysteroscopy but the patient refusing at this point. monitor H and H # positive occult stool blood test No major drop in hemoglobin, remains stable GI input appreciated, to do EGD today Patient does not want to do Colonoscopy Restarted after procedure # difficulty swallowing speech therapy eval Advanced diet as tolerated # Hx MRSA Bacteremia 2/2 septic knee Diagnosed [place] [facility] [place] Daptomycin currently renally adjusted dose Continue treatment with daptomycin until 10/03 wound care to follow infectious disease input appreciated # hypothyroidism continue levothyroxine # morbid obesity consider bariatric evaluation outpatient DVT prophylaxis SCDs in the setting of positive GI as well as vaginal bleeding Given patient's kidney injury requiring IV fluids, evaluation for GI bleed patient require overnight hospital inpatient stay for further management and evaluation pending EGD and safe discharge plan Quality Stroke Does the patient have a stroke diagnosis?: No VTE Prior VTE?: No VTE Risk Level:: Medical - moderate - high VTE Device Contraindication: N/A - Device Ordered VTE Drug Contraindication: Treatment Not Indicated
--- NOTE | 2022-09-13 11:49 | P.PNNP_ITS ---
Subjective Subjective Date of Service: 09/13/22 Interval history: Events noted. All recent data reviewed Physical Exam Vital Signs: Vital Signs: Last Vital Signs Temp 98.0 F 09/13/22 11:26 Pulse 84 09/13/22 11:26 Resp 17 09/13/22 11:26 BP 141/69 H 09/13/22 11:26 Pulse Ox 96 09/13/22 11:26 O2 Del Method 09/13/22 11:26 BMI result Body Mass Index 62.6 Const: General: no acute distress Orientation/consciousness: patient oriented x3 Eyes: EOM: EOMs intact bilaterally Neck: Neck: Yes supple Resp: Auscultation: diminished lung sounds Cardio: Rate: regular rate GI: Palpation (GI): Soft to palpation Neuro: General: patient oriented x3 Objective Data Labs CBC & Chem 7: 09/13/22 05:48 09/13/22 05:48 Labs: Laboratory Results - last 24 hr 09/13/22 09/13/22 05:48 05:48 WBC 9.6 RBC 3.47 L Hgb 9.5 L Hct 30.3 L MCV 87.3 MCH 27.4 MCHC 31.4 RDW 16.9 H Plt Count 248 MPV 9.5 Absolute Nucleated RBC 0.000 Nucleated RBC % (auto) 0.0 Sodium 139 Potassium 3.6 Chloride 96 Carbon Dioxide 26 Anion Gap 21 H BUN 65 H Creatinine 2.53 H Estim Creat Clear Calc 31.0 Estimated GFR 19 Random Glucose 114 Calcium 8.6 Microbiology Microbiology Results: Microbiology 09/09/22 16:33 Blood - Venous Blood Culture - Preliminary No growth after 48 hours. 09/09/22 16:33 Blood - Venous Blood Culture - Preliminary No growth after 48 hours. Procedures Date of Service Date of Service: 09/13/22 Assessment & Plan Assessment and plan (1) Acute kidney injury superimposed on CKD: Status: Acute Assessment and Plan: 67-year-old female with past medical history of Left knee septic arthritis s/p I&D 08/16/22 with MRSA found as well as MRSA bacteremia. The patient was on Daptomycin q48 hours for GFR for total of 6 week plan. She presented from SNF for vaginal bleeding. Course now complicated by recurrent LATISHA on baseline normal renal function. LATISHA BL Cr 0.8mg/dL [place] [facility] [place] peaking 6.4mg/dL 08/16/22 when she was originally admitted for left knee septic arthritis. With IVF support Cr quickly improved to 4.0mg/dL. She was discharged. She tells me she does not remember being seen by a Rn Maternal Child, however it appears she was evaluated by kidney team there. She is frustrated that she never knew about her LATISHA there. In SNF had lasix and idapamide started, she is not sure why. She had poor PO intake and soon enough had reduced UOP. She now presents with Cr near 5's Oliguria markedly improved after IVF support Serum Eos elevated Differential includes Infectious GN (complements pending) vs AIN (Urine Eos negative) vs Pre-renal azotemia. Obstruction ruled out by CT scan So far improvement with IVF support; No indication for renal replacement; Patient wants to establish f/u with [facility]. She had seen a variety of n ephrologists in the [place] [facility] but she felt uncomfortable with their communication and follow up. Dr Tom had provided her with f/u instructions. Time Spent With Patient Time: Total time spent is greater than 50% in coordination of care (as documented) at patient's floor/unit and/or counseling patient: Progress Note: Quality Stroke Does the patient have a stroke diagnosis?: No
--- NOTE | 2022-09-13 12:23 | MHC.CDI.CONC ---
CDI Concurrent Query Documentation Clarification: PHYSICIAN'S DOCUMENTATION REQUEST Date of Query: 09/13/22 1223 Patient Name: Amber Neves Admit Date: 09/09/22 Dear Doctor, A review of the medical record indicates additional documentation may be indicated. Please review below and update the documentation accordingly. Clinical Indicators: Risk Factors/Clinical Indicators/Treatments Wound care notes 09/12 - Pressure injury Stage III left posterior knee. Beefy red, serous Gauze pad, roll/wrap. Based on the above, could you please provide, in the Progress Notes, further information regarding the ulcer/wound: If a pressure ulcer, please also include the stage* of the ulcer: Stage 1 - Skin intact, non-blanchable redness Stage 2 - Partial thickness loss of dermis, includes intact or open blister Stage 3 - Full thickness tissue not including bone, tendon, or muscle Stage 4 - Full thickness tissue loss, including exposed bones, tendon, or muscle Other Unable to determine *Source: National Pressure Ulcer Advisory Panel (NPUAP) Use of terms such as suspected, likely, concern for, or probable (associated with a specific diagnosis that is being evaluated, monitored, or treated as if it exists) are acceptable and can be coded in the inpatient setting, when documented at the time of discharge. Thank you, Paty Gutierrez [facility], CDIS Extension: [phone] Please use your independent medical judgment in providing your response. THIS QUERY IS PART OF THE PERMANENT MEDICAL RECORD Provider Response: Other Other Diagnosis: Pressure injury Stage III left posterior knee
[2022-09-13 14:25] LABS: Complement C3 169 mg/dL (83-193)
--- NOTE | 2022-09-13 16:09 | P.CONAN_ITS ---
HPI - Anesthesia Eval Consult details Narrative: 67 yo female patient for EGD [facility] Active Problems Active Problems: All Active Problems (Updated 09/11/22 @ 15:31 by Chicho Reyes MD) MRSA bacteremia (Acute) Hepatic steatosis (Acute) Heartburn (Acute) Odynophagia (Acute) Postmenopausal bleeding (Acute) Positive occult stool blood test (Acute) Osteomyelitis (Acute) Acute kidney injury superimposed on CKD (Acute). BUN/Cr improved since admission 09/09/22 from 115/6.63 to 65/2.53 Vaginal bleeding (Acute) Morbid Obesity. BMI 62.6 Left knee septic arthritis- On 6 week course of antibiotics. Started 08/16/22 at [facility] and then transferred to rehab to continue. Admitted 09/09/22 with bleeding vaginal vs rectal. Source unknown but guaiac positive stool Anemia. Hct stable since admissionn at 30 Hypercholesterolemia Back pain Overactive bladder Anxiety/Depression Hypothyroidism Constipation Nausea and vomiting Past Medical History Medical History JING inhibitor-aggravated angioedema Hypertension Hypothyroidism Morbid obesity Osteomyelitis Family History Family History Other No family history of coronary artery disease Family history of problems with anesthesia: No Surgical History Surgical History No pertinent past surgical history History of Problems with Anesthesia: No Social History Social History Household Members: Spouse Housing: House Do you presently have visiting nurse or other home services: Yes Alcohol intake: former Patient Tobacco Use Status: Never used Tobacco Smoked in Last 30 Days: No service: No Current occupational status: retired Meds Allergies Allergy/AdvReac Type Severity Reaction Status Date / Time penicillin V Allergy Unknown hives on Verified 09/09/22 16:49 hands and feeet, hives Penicillins [PENICILLINS] Allergy Unknown HIVES Verified 09/09/22 16:49 Sulfa (Sulfonamide Allergy Unknown RASH, Verified 09/09/22 16:49 Antibiotics) itching [SULFA (SULFONAMIDE ANTIBIOTICS)] bee sting Allergy Unknown anaphylaxis Uncoded 09/09/22 16:49 Active Medications: Current Medications Acetaminophen (Acetaminophen 325 Mg Tablet) 650 mg PO Q6H PRN PRN Reason: Pain, Mild (Pain Scale 1-3) Bisacodyl (Bisacodyl 10 Mg Supp.Rect) 10 mg DE Q24H PRN PRN Reason: Constipation Docusate Sodium (Docusate Sodium 100 Mg Capsule) 100 mg PO DAILY PRN PRN Reason: Constipation Duloxetine HCl (Duloxetine Hcl 60 Mg Capsule.Dr) 60 mg PO DAILY [facility] Last Admin: 09/13/22 08:47 Dose: 60 mg Glucagon (Glucagon,Human Recombinant 1 Mg/Ml Vial) 1 mg SUBCUT Q20M PRN PRN Reason: bs<70 and unresponsive Hydromorphone HCl (Hydromorphone Hcl 1 Mg/Ml Syringe) 1 mg IVPUSH Q4H PRN; Protocol PRN Reason: Pain, Severe (Pain Scale 7-10) Last Admin: 09/11/22 15:00 Dose: 1 mg Hydromorphone HCl (Hydromorphone Hcl 4 Mg Tablet) 8 mg PO Q4H PRN PRN Reason: Pain (Scale Score 7-10) Last Admin: 09/13/22 06:14 Dose: 8 mg Daptomycin 700 mg/ Sodium (Chloride) 64 mls @ 100 mls/hr IV Q48H [facility] Last Infusion: 09/12/22 10:36 Dose: Infused Lactulose (Lactulose 20 Gm/30 Ml Solution) 20 gm PO Q24H PRN PRN Reason: Constipation Levothyroxine Sodium (Levothyroxine Sodium 175 Mcg Tablet) 175 mcg PO SUMOTUWETHFR@0630 [facility] Last Admin: 09/13/22 06:15 Dose: 175 mcg Levothyroxine Sodium (Levothyroxine Sodium 175 Mcg Tablet) 262.5 mcg PO SA@0630 [facility] Last Admin: 09/11/22 06:16 Dose: 262.5 mcg Magnesium Hydroxide (Milk Of Magnesia 30 Ml Oral.Susp) 30 ml PO Q24H PRN PRN Reason: Constipation Magnesium Oxide (Magnesium Oxide 400 Mg Tablet) 400 mg PO BEDTIME [facility] Last Admin: 09/12/22 19:44 Dose: 400 mg Meclizine HCl (Meclizine Hcl 25 Mg Tablet) 25 mg PO BID PRN PRN Reason: Nausea And Vomiting Multivitamins/Vitamin C (Multivitamin Tablet) 1 tab PO DAILY [facility] Last Admin: 09/13/22 08:45 Dose: 1 tab Nystatin (Nystatin Powder 15 Gm Bottle) 1 appl TOPICAL BID [facility]; Protocol Last Admin: 09/13/22 08:47 Dose: 1 appl Ondansetron HCl (Ondansetron Hcl 4 Mg/2 Ml Vial) 4 mg IVPUSH Q8H PRN PRN Reason: Nausea and Vomiting Oxybutynin Chloride (Oxybutynin Chloride Er 5 Mg Tab.Er.24) 10 mg PO DAILY [facility] Last Admin: 09/13/22 08:44 Dose: 10 mg Oxycodone HCl (Oxycodone Hcl Immed Release 5 Mg Tablet) 5 mg PO Q3H PRN PRN Reason: Pain, Severe (Pain Scale 7-10) Last Admin: 09/11/22 07:56 Dose: 5 mg Pharmacy Consult (Consult Rx Perform Med Rec) 1 each MISCELLANE ONCE PRN PRN Reason: Consult order Potassium Chloride (Potassium Chloride Er 20 Meq Tab.Er.Prt) 20 meq PO DAILY [facility] Last Admin: 09/13/22 08:45 Dose: 20 meq Pravastatin Sodium (Pravastatin Sodium 40 Mg Tablet) 40 mg PO DAILY [facility] Last Admin: 09/13/22 08:45 Dose: 40 mg Sodium Chloride (0.9 % Sodium Chloride Flush 3 Ml Syringe) 3 ml IVFLUSH QSHIFT [facility] Last Admin: 09/13/22 08:56 Dose: 3 ml Tizanidine HCl (Tizanidine Hcl 4 Mg Tablet) 2 mg PO TID [facility] Last Admin: 09/13/22 15:18 Dose: Not Given Triamcinolone Acetonide (Triamcinolone Acet 0.1 % Cream 15 Gm Tube) 1 appl TOPICAL BID PRN; Protocol PRN Reason: eczema Vitamin D (Cholecalciferol (Vitamin D3) 25 Mcg Tablet) 25 mcg PO DAILY [facility] Last Admin: 09/13/22 08:46 Dose: 25 mcg Home Medications Medication Instructions Recorded Confirmed Last Taken Type Lactobacillus 1 cap PO BID 09/09/22 09/09/22 Unknown History acidophilus-Bifidobac.animalis 32 billion cell capsule (Probizen) acetaminophen 325 mg tablet 650 mg PO Q4H PRN pain/fever 09/09/22 09/09/22 Unknown History acetaminophen 650 mg rectal 650 mg DE Q4H PRN pain/fever 09/09/22 09/09/22 Unkno wn History suppository biotin 1,000 mcg chewable tablet 1,000 mcg PO DAILY 09/09/22 09/09/22 Unknown History bisacodyl 10 mg rectal suppository 10 mg DE Q24H PRN Constipation 09/09/22 09/09/22 Unknown History cholecalciferol (vitamin D3) 25 25 mcg PO DAILY 09/09/22 09/09/22 Unknown History mcg (1,000 unit) tablet daptomycin 500 mg intravenous 700 mg IV Q48H 09/09/22 09/09/22 Unknown History solution diclofenac sodium 75 mg 75 mg PO BID 09/09/22 09/09/22 Unknown History tablet,delayed release duloxetine 60 mg capsule,delayed 60 mg PO DAILY 09/09/22 09/09/22 Unknown History release epinephrine 1 mg/mL injection kit 0.3 mg IM Q20M PRN Allergic 09/09/22 09/09/22 Unknown History Symptoms glucagon 1 mg solution for 1 mg subcut Q20M PRN bs<70 and 09/09/22 09/09/22 Unknown History injection unresponsive hydromorphone 4 mg tablet 8 mg PO Q4H PRN Pain (Scale Score 09/09/22 09/09/22 Unknown History 7-10) indapamide 1.25 mg tablet 1 tab PO DAILY 09/09/22 09/09/22 Unknown History lactulose 10 gram/15 mL oral 20 g PO Q24H PRN Constipation 09/09/22 09/09/22 Unknown History solution levothyroxine 175 mcg tablet 175 mcg PO SUMOTUWETHFR@0630 09/09/22 09/09/22 Unknown History levothyroxine 175 mcg tablet 262.5 mcg PO SA@0630 09/09/22 09/09/22 Unknown History magnesium hydroxide 400 mg/5 mL 30 ml PO Q24H PRN Constipation 09/09/22 09/09/22 Unknown History oral suspension (Milk of Magnesia) magnesium oxide 400 mg PO BEDTIME 09/09/22 09/09/22 Unknown History meclizine 25 mg tablet 25 mg PO BID PRN Nausea And 09/09/22 09/09/22 Unknown History Vomiting multivitamin 1 tab PO DAILY 09/09/22 09/09/22 Unknown History naloxone 4 mg/actuation nasal spray 4 mg intranasal Q3M PRN overdose 09/09/22 09/09/22 Unknown History nystatin 100,000 unit/gram topical 1 appl topical BID 09/09/22 09/09/22 Unknown History powder oxybutynin chloride 5 mg tablet 5 mg PO BID 09/09/22 09/09/22 Unknown History potassium chloride 20 mEq 20 meq PO DAILY 09/09/22 09/09/22 Unknown History tablet,extended release pravastatin 40 mg tablet 40 mg PO DAILY 09/09/22 09/09/22 Unknown History tizanidine 2 mg tablet 2 mg PO TID 09/09/22 09/09/22 Unknown History triamcinolone acetonide 0.1 % 1 appl topical BID PRN eczema 09/09/22 09/09/22 Unknown History topical cream Exam Exam Date and Time: September 13, 2022 160 Height,Weight and Vital Signs: Height 5 ft 1 in Weight 150.3 kg Last Vital Signs Temp 97 F 09/13/22 15:22 Pulse 82 09/13/22 15:22 Resp 18 09/13/22 15:22 BP 145/70 H 09/13/22 15:22 Pulse Ox 98 09/13/22 15:22 O2 Del Method 09/13/22 15:22 Pertinent Lab Results Pertinent Lab Results: Laboratory Tests 09/09/22 09/09/22 09/09/22 16:32 16:32 16:32 WBC 10.1 RBC 3.48 L Hgb 9.5 L Hct 29.3 L MCV 84.2 MCH 27.3 MCHC 32.4 RDW 16.8 H Plt Count 238 MPV 9.5 Immature Gran % (Auto) 0.4 Neut % (Auto) 69.2 Lymph % (Auto) 12.[address] [place] % (Auto) 8.0 Eos % (Auto) 9.4 H Baso % (Auto) 0.6 Lymph # (Auto) 1.3 [facility] # (Auto) 0.8 Eos # (Auto) 1.0 H Baso # (Auto) 0.1 Abs Immat Gran (auto) 0.04 H Absolute Neuts (auto) 7.0 Absolute Nucleated RBC 0.000 Nucleated RBC % (auto) 0.0 PT INR Sodium 130 L Potassium 4.1 Chloride 79 L Carbon Dioxide 29 Anion Gap 26 H BUN 115 H Creatinine 6.63 H* Estim Creat Clear Calc 11.8 Estimated GFR 6 Random Glucose 97 Lactic Acid 2.0 Calcium 8.9 Phosphorus Iron TIBC % Saturation Unsat Iron Binding Ferritin Total Bilirubin 1.4 H Direct Bilirubin 0.8 H AST 17 ALT 34 H Alkaline Phosphatase 181 H Total Protein 7.1 Albumin 2.9 L Vitamin B12 Urine Color Urine Appearance Urine pH Ur Specific [place] Urine Protein Urine Glucose (UA) Urine Ketones Urine Blood Urine Nitrite Ur Leukocyte Esterase Urine RBC Urine WBC Ur Squamous Epith Cells Urine Bacteria Hyaline Casts Urine Eosinophils % Ur Random Sodium Ur Random Potassium Urine Creatinine Stool Occult Blood Complement C3 Complement C4 COVID-19 ([facility]) COVID-19 Clin Com 09/09/22 09/09/22 09/10/22 16:33 17:55 06:04 WBC 9.4 RBC 3.51 L Hgb 9.6 L Hct 29.8 L MCV 84.9 MCH 27.4 MCHC 32.2 RDW 17.0 H Plt Count 230 MPV 9.6 Immature Gran % (Auto) 0.5 H Neut % (Auto) 74.0 H Lymph % (Auto) 12.[address] [place] % (Auto) 6.1 Eos % (Auto) 6.7 H Baso % (Auto) 0.6 Lymph # (Auto) 1.[address] [place] # (Auto) 0.6 Eos # (Auto) 0.6 H Baso # (Auto) 0.1 Abs Immat Gran (auto) 0.05 H Absolute Neuts (auto) 7.0 Absolute Nucleated RBC 0.000 Nucleated RBC % (auto) 0.0 PT INR Sodium Potassium Chloride Carbon Dioxide Anion Gap BUN Creatinine Estim Creat Clear Calc Estimated GFR Random Glucose Lactic Acid Calcium Phosphorus Iron TIBC % Saturation Unsat Iron Binding Ferritin Total Bilirubin Direct Bilirubin AST ALT Alkaline Phosphatase Total Protein Albumin Vitamin B12 Urine Color Urine Appearance Urine pH Ur Specific [place] Urine Protein Urine Glucose (UA) Urine Ketones Urine Blood Urine Nitrite Ur Leukocyte Esterase Urine RBC Urine WBC Ur Squamous Epith Cells Urine Bacteria Hyaline Casts Urine Eosinophils % Ur Random Sodium Ur Random Potassium Urine Creatinine Stool Occult Blood POSITIVE Complement C3 Complement C4 COVID-19 ([facility]Y) Negative COVID-19 Clin Com See Note 09/10/22 09/10/22 09/10/22 09:03 18:11 18:11 WBC RBC Hgb Hct MCV MCH MCHC RDW Plt Count MPV Immature Gran % (Auto) Neut % (Auto) Lymph % (Auto) [place] % (Auto) Eos % (Auto) Baso % (Auto) Lymph # (Auto) [place] # (Auto) Eos # (Auto) Baso # (Auto) Abs Immat Gran (auto) Absolute Neuts (auto) Absolute Nucleated RBC Nucleated RBC % (auto) PT INR Sodium 136 Potassium 3.7 Chloride 85 L Carbon Dioxide 31 H Anion Gap 24 H BUN 107 H Creatinine 6.02 H* Estim Creat Clear Calc 13.0 Estimated GFR 7 Random Glucose 97 Lactic Acid Calcium 8.8 Phosphorus 5.7 H Iron TIBC % Saturation Unsat Iron Binding Ferritin Total Bilirubin Direct Bilirubin AST ALT Alkaline Phosphatase Total Protein Albumin Vitamin B12 Urine Color Geary A Urine Appearance Clear Urine pH 7.0 Ur Specific [place] 1.010 Urine Protein 30 (1+) H Urine Glucose (UA) Negative Urine Ketones Negative Urine Blood Large (3+) H Urine Nitrite Negative Ur Leukocyte Esterase Trace H Urine RBC >20 H Urine WBC 0-5 Ur Squamous Epith Cells 0-2 Urine Bacteria 3+ Hyaline Casts 0-2 Urine Eosinophils % 0.0 Ur Random Sodium Ur Random Potassium Urine Creatinine Stool Occult Blood Complement C3 Complement C4 COVID-19 ([facility]Y) COVID-19 Clin Com 09/10/22 09/11/22 09/11/22 18:11 06:34 06:34 WBC 7.9 RBC 3.37 L Hgb 9.3 L Hct 28.9 L MCV 85.8 MCH 27.6 MCHC 32.2 RDW 16.8 H Plt Count 221 MPV 9.8 Immature Gran % (Auto) Neut % (Auto) Lymph % (Auto) [facility] % (Auto) Eos % (Auto) Baso % (Auto) Lymph # (Auto) [facility] # (Auto) Eos # (Auto) Baso # (Auto) Abs Immat Gran (auto) Absolute Neuts (auto) Absolute Nucleated RBC 0.000 Nucleated RBC % (auto) 0.0 PT INR Sodium 140 Potassium 3.4 Chloride 91 L Carbon Dioxide 31 H Anion Gap 21 H BUN 104 H Creatinine 4.75 H* Estim Creat Clear Calc 16.5 Estimated GFR 9 Random Glucose 106 Lactic Acid Calcium 8.8 Phosphorus Iron 63 TIBC 241 % Saturation 26 Unsat Iron Binding 178 Ferritin 395 H Total Bilirubin Direct Bilirubin AST ALT Alkaline Phosphatase Total Protein Albumin Vitamin B12 Urine Color Urine Appearance Urine pH Ur Specific [place] Urine Protein Urine Glucose (UA) Urine Ketones Urine Blood Urine Nitrite Ur Leukocyte Esterase Urine RBC Urine WBC Ur Squamous Epith Cells Urine Bacteria Hyaline Casts Urine Eosinophils % Ur Random Sodium 80.0 Ur Random Potassium 13.8 Urine Creatinine 33.52 Stool Occult Blood Complement C3 Complement C4 COVID-19 (LETTY) COVID-19 Clin Com 09/11/22 09/11/22 09/12/22 06:34 06:34 05:50 WBC RBC Hgb Hct MCV MCH MCHC RDW Plt Count MPV Immature Gran % (Auto) Neut % (Auto) Lymph % (Auto) [facility] % (Auto) Eos % (Auto) Baso % (Auto) Lymph # (Auto) [facility] # (Auto) Eos # (Auto) Baso # (Auto) Abs Immat Gran (auto) Absolute Neuts (auto) Absolute Nucleated RBC Nucleated RBC % (auto) PT 13.6 H INR 1.2 H Sodium Potassium Chloride Carbon Dioxide Anion Gap BUN Creatinine Estim Creat Clear Calc Estimated GFR Random Glucose Lactic Acid Calcium Phosphorus Iron TIBC % Saturation Unsat Iron Binding Ferritin Total Bilirubin Direct Bilirubin AST ALT Alkaline Phosphatase Total Protein Albumin Vitamin B12 1850 H Urine Color Urine Appearance Urine pH Ur Specific [place] Urine Protein Urine Glucose (UA) Urine Ketones Urine Blood Urine Nitrite Ur Leukocyte Esterase Urine RBC Urine WBC Ur Squamous Epith Cells Urine Bacteria Hyaline Casts Urine Eosinophils % Ur Random Sodium Ur Random Potassium Urine Creatinine Stool Occult Blood Complement C3 169 Complement C4 70 H COVID-19 ([facility]TTY) COVID-19 Clin Com 09/12/22 09/12/22 09/12/22 05:50 05:50 05:50 WBC 9.6 RBC 3.45 L Hgb 9.3 L Hct 30.0 L MCV 87.0 MCH 27.0 MCHC 31.0 RDW 17.0 H Plt Count 206 MPV 9.4 Immature Gran % (Auto) Neut % (Auto) Lymph % (Auto) [facility] % (Auto) Eos % (Auto) Baso % (Auto) Lymph # (Auto) [facility] # (Auto) Eos # (Auto) Baso # (Auto) Abs Immat Gran (auto) Absolute Neuts (auto) Absolute Nucleated RBC 0.000 Nucleated RBC % (auto) 0.0 PT INR Sodium 141 Potassium 4.3 D Chloride 96 Carbon Dioxide 29 Anion Gap 20 BUN 87 H Creatinine 3.56 H Estim Creat Clear Calc 22.0 Estimated GFR 13 Random Glucose 101 Lactic Acid Calcium 8.6 Phosphorus Iron TIBC % Saturation Unsat Iron Binding Ferritin Total Bilirubin 0.8 Direct Bilirubin 0.5 AST 9 D ALT 14 Alkaline Phosphatase 131 H D Total Protein 6.3 L Albumin 2.7 L Vitamin B12 Urine Color Urine Appearance Urine pH Ur Specific [place] Urine Protein Urine Glucose (UA) Urine Ketones Urine Blood Urine Nitrite Ur Leukocyte Esterase Urine RBC Urine WBC Ur Squamous Epith Cells Urine Bacteria Hyaline Casts Urine Eosinophils % Ur Random Sodium Ur Random Potassium Urine Creatinine Stool Occult Blood Complement C3 Complement C4 COVID-19 (LETTY) COVID-19 [place] 09/13/22 09/13/22 05:48 05:48 WBC 9.6 RBC 3.47 L Hgb 9.5 L Hct 30.3 L MCV 87.3 MCH 27.4 MCHC 31.4 RDW 16.9 H Plt Count 248 MPV 9.5 Immature Gran % (Auto) Neut % (Auto) Lymph % (Auto) [facility] % (Auto) Eos % (Auto) Baso % (Auto) Lymph # (Auto) [facility] # (Auto) Eos # (Auto) Baso # (Auto) Abs Immat Gran (auto) Absolute Neuts (auto) Absolute Nucleated RBC 0.000 Nucleated RBC % (auto) 0.0 PT INR Sodium 139 Potassium 3.6 Chloride 96 Carbon Dioxide 26 Anion Gap 21 H BUN 65 H Creatinine 2.53 H Estim Creat Clear Calc 31.0 Estimated GFR 19 Random Glucose 114 Lactic Acid Calcium 8.6 Phosphorus Iron TIBC % Saturation Unsat Iron Binding Ferritin Total Bilirubin Direct Bilirubin AST ALT Alkaline Phosphatase Total Protein Albumin Vitamin B12 Urine Color Urine Appearance Urine pH Ur Specific [place] Urine Protein Urine Glucose (UA) Urine Ketones Urine Blood Urine Nitrite Ur Leukocyte Esterase Urine RBC Urine WBC Ur Squamous Epith Cells Urine Bacteria Hyaline Casts Urine Eosinophils % Ur Random Sodium Ur Random Potassium Urine Creatinine Stool Occult Blood Complement C3 Complement C4 COVID-19 (LETTY) COVID-19 Clin Com Narrative Narrative: 09/13/22: 12 lead EKG: NSR. 86 Airway Mallampati Class: II TM Dist: >3cm Neck ROM: Full Loose/Missing/Broken Teeth: No (Some bonded teeth. Denies broken or loose teeth) Heart: RRR Lungs: CTAB Assessment and Plan Assessment Anesthesia Assessment: Anesthesia Plan Discussed and Chart Reviewed Final Anesthetic Review Family History of Problems with Anesthesia: No History of Problems with Anesthesia: No NPO: Yes ASA Class: III Final Preanesthetic Review: No Changes in Pt Med Stat, Meds/Allgs Chart Reviewed, Consent Obtained/Reviewed and Anes Risks/Benef Reviewed Patient Risk: High Procedure Risk: Low Assessment/Block/Sedation in SS: Assess/Block/Sedation-SS Anesthetic Plan Anesthetic Plan: GA Disposition: Standard PACU and Inp. Admit - [facility]
--- NOTE | 2022-09-13 16:35 | PM.OP ---
Brief Operative Note Date of Service: 09/13/22 Pre-op diagnosis: dysphagia, odynophagia and throat pain Post-op diagnosis: other ( gastric ulcer, duodenal ulcer, GERD) Procedure: UPPER ENDOSCOPY WITH BIOPSY Surgeon: Gaby Fragoso MD Anesthesia: GETA Was an Administration Dean used for this Procedure?: Yes Administration Dean: Shanika Anaya Estimated blood loss (mL): 0 Pathology: other (A #1: GASTRIC ANTRUM R/O H. PYLORI B #2: GASTRIC ULCER C#3 : DISTAL ESOPHAGUS R/O BARRETTS) Condition: stable Disposition: PACU
--- NOTE | 2022-09-13 16:35 | MHC.SHP ---
Pre-Procedural Eval Section A Date of Service: 09/13/22 The patient is an INPATIENT: Yes Changes since office visit: Yes New Medical Problems, Yes Changes in Medication and Yes Patient answered all questions; No Cold of Flu in the past 2 weeks The History & Physical has been completed within 30 days and I have reviewed it.: Yes Section B Chief Complaint: LATISHA on CKD, Vaginal bleed Allergies: Allergies Allergy/AdvReac Type Severity Reaction Status Date / Time penicillin V Allergy Unknown hives on Verified 09/09/22 16:49 hands and feeet, hives Penicillins [PENICILLINS] Allergy Unknown HIVES Verified 09/09/22 16:49 Sulfa (Sulfonamide Allergy Unknown RASH, Verified 09/09/22 16:49 Antibiotics) itching [SULFA (SULFONAMIDE ANTIBIOTICS)] bee sting Allergy Unknown anaphylaxis Uncoded 09/09/22 16:49 Plan I have reviewed the history and physical and performed a pertinent physical examination on my patient. No changes have occurred unless specified.
--- NOTE | 2022-09-13 16:40 | W.PM.OPN ---
Operative Note Operative Note Date of Service: 09/13/22 Narrative: Pre-op diagnosis: dysphagia, odynophagia and throat pain Post-op diagnosis:?other ( gastric ulcer, duodenal ulcer, GERD) Surgeon: Gaby Fragoso MD Anesthesia:?GETA FLEXIBLE TRANSORAL UPPER GASTROINTESTINAL ENDOSCOPY WITH BIOPSIES Consent: Indications for the procedure and potential complications of bleeding, perforation, reaction to medications and missed diagnosis were discussed with the patient and informed consent was obtained. Instrument: Olympus GIF H 190 mid size upper endoscope Monitoring: Vital signs and clinical assessment, continuous EKG monitoring, Pulse oximetry, Carbon Dioxide monitoring and blood pressure monitoring were done throughout the procedure. Procedure: The patient was placed in the left lateral decubitis position and pre-procedure medications were administered and a bite block was placed. The endoscope was inserted into the mouth and advanced under direct vision to the third part of duodenum. A careful inspection was made as the upper endoscope was withdrawn including a retroflexed examination of the proximal stomach; Findings and interventions are described below. Findings: Larynx: Normal Esophagus: GE junction at 35 cms. No esophagitis. Irregular Z line - biopsied to check for [place]'s. Stomach: Moderate diffuse gastric erythema with scattered small amount of old clots. Antral biopsies were obtained to check for H Pylori. A 1 cms linear known bleeding ulcer in the antrum with yellow exudate Grade 2 flap valve on retroflexed examination of the cardia. Duodenum: A large 2 cms nonbleeding ulcer in the apex of the bulb containing an old clot. Normal descending duodenum Intervention: Biopsies as noted above Impression and Post Procedure Diagnosis: Endoscopy Findings: ESOPHAGUS: GE junction at 35 cms. No esophagitis. Irregular Z line - biopsied to check for [place]'s. STOMACH: Moderate diffuse gastric erythema with scattered small amount of old clots. Antral biopsies were obtained to check for H Pylori. A 1 cms linear known bleeding ulcer in the antrum with yellow exudate DUODENUM: A large 2 cms nonbleeding ulcer in the apex of the bulb containing an old clot. Normal descending duodenum Plan: Await pathology results. Start Omeprazole 20 mg twice daily - order placed Above findings were reviewed with the patient. Pt reports taking Diclofenac twice daily - likely cause of PUD.
--- NOTE | 2022-09-13 18:52 | PC.NURSE ---
changed dressing on left cafl with silver alginate and gauze wrap, foam dsg applied to lft srugical site and left Abd wound.
[2022-09-13] MEDS: Magnesium Oxide 400 MG TABLET PO (20:06)
[2022-09-13] MEDS: Omeprazole 20 MG CAPSULE.DR PO (20:06)
[2022-09-14 03:10] VITALS: BP 152/68; PULSE 90; RESP 18; TEMP 36.3; O2SAT 96
[2022-09-14] MEDS: 0.9 % Sodium Chloride 1,000 ML 100 ML IVCONT (03:44)
[2022-09-14] MEDS: Levothyroxine Sodium 175 MCG TABLET PO (05:37)
[2022-09-14 07:45] VITALS: BP 156/70; PULSE 84; RESP 18; TEMP 36.2; O2SAT 95
[2022-09-14] MEDS: Cholecalciferol (Vitamin D3) 25 MCG TABLET PO (09:41)
[2022-09-14] MEDS: 0.9 % Sodium Chloride Flush 3 ML SYRINGE IVFLUSH (09:41)
[2022-09-14] MEDS: DAPTOmycin 700 MG in 0.9 % Sodium Chloride 50 ML 100 MG IV (09:42)
[2022-09-14] MEDS: Multivitamin TABLET 1 TAB PO (09:43)
[2022-09-14] MEDS: Nystatin Powder 15 GM BOTTLE 1 APPL TOPICAL (09:43)
[2022-09-14] MEDS: DULoxetine HCl 60 MG CAPSULE.DR PO (09:43)
[2022-09-14] MEDS: Omeprazole 20 MG CAPSULE.DR PO (09:43)
[2022-09-14] MEDS: Potassium Chloride ER 20 MEQ TAB.ER.PRT PO (09:44)
[2022-09-14] MEDS: TiZANidine HCL 4 MG TABLET 2 MG PO (09:45)
[2022-09-14] MEDS: Pravastatin Sodium 40 MG TABLET PO (09:45)
[2022-09-14 10:24] LABS: Anion Gap 15 (12-20); Blood Urea Nitrogen 47 mg/dL (9-16); Calcium 8.5 mg/dL (8.4-10.2); Carbon Dioxide 27 mmol/L (22-29); Chloride 100 mmol/L (96-108); Creatinine Clr Calc Pharmacy 45.4; Estimated Glomerular Filt Rate 30; Glucose Random 107 mg/dL (60-115); Potassium 3.6 mmol/L (3.3-5.1); Sodium 138 mmol/L (135-145)
--- NOTE | 2022-09-14 11:11 | P.PNNP_ITS ---
Subjective Subjective Date of Service: 09/14/22 Interval history: Events noted. All recent data reviewed Physical Exam Vital Signs: Vital Signs: Last Vital Signs Temp 97.1 F 09/14/22 07:45 Pulse 84 09/14/22 07:45 Resp 18 09/14/22 07:45 BP 156/70 H 09/14/22 07:45 Pulse Ox 95 09/14/22 07:45 O2 Del Method 09/14/22 07:45 O2 Flow Rate 4 09/13/22 17:46 BMI result Body Mass Index 62.6 Const: General: no acute distress Orientation/consciousness: patient oriented x3 Eyes: EOM: EOMs intact bilaterally Neck: Neck: Yes supple Resp: Auscultation: diminished lung sounds Cardio: Rate: regular rate GI: Palpation (GI): Soft to palpation Neuro: General: patient oriented x3 and moves all extremities Objective Data Labs CBC & Chem 7: 09/13/22 05:48 09/14/22 06:55 Labs: Laboratory Results - last 24 hr 09/10/22 09/11/22 09/14/22 Unknown 06:34 06:55 Sodium 138 Potassium 3.6 Chloride 100 Carbon Dioxide 27 Anion Gap 15 BUN 47 H Creatinine 1.73 H Estim Creat Clear Calc 45.4 Estimated GFR 30 Random Glucose 107 Calcium 8.5 U [place] Prot/Creat Ratio Cancelled Ur Creatinine mg/dL Cancelled U Total Protein mg/dL Cancelled Protein/Creatinin Ratio Cancelled Urine Albumin (%) Cancelled U Hbuwt-5-Oymmndfp (%) Cancelled U Tqdny-4-Vuzhwwey (%) Cancelled U Beta Globulin (%) Cancelled U Gamma Globulin (%) Cancelled U Abnormal Prot Band 1 Cancelled U Abnormal Prot Band 2 Cancelled U Abnormal Prot Band 3 Cancelled Urine PEP Interpret Cancelled Complement C3 169 Complement C4 70 H Microbiology Microbiology Results: Microbiology 09/09/22 16:33 Blood - Venous Blood Culture - Preliminary No growth after 48 hours. 09/09/22 16:33 Blood - Venous Blood Culture - Preliminary No growth after 48 hours. Procedures Date of Service Date of Service: 09/14/22 Assessment & Plan Assessment and plan (1) Acute kidney injury superimposed on CKD: Status: Acute Assessment and Plan: 67-year-old female with past medical history of Left knee septic arthritis s/p I&D 08/16/22 with MRSA found as well as MRSA bacteremia. The patient was on Daptomycin q48 hours for GFR for total of 6 week plan. She presented from SNF for vaginal bleeding. Course now complicated by recurrent LATISHA on baseline normal renal function. LATISHA BL Cr 0.8mg/dL Recent LATISHA at [facility] [place] with Cr peaking 6.4mg/dL 08/16/22 when she was originally admitted for left knee septic arthritis. With IVF support Cr quickly improved to 4.0mg/dL. She was discharged. She tells me she does not remember being seen by a Home Health Clinical Liaison, however it appears she was evaluated by kidney team there. She is frustrated that she never knew about her LAITSHA there. In SNF had lasix and idapamide started, she is not sure why. She had poor PO intake and soon enough had reduced UOP. She now presents with Cr near 5's Oliguria markedly improved after IVF support Serum Eos elevated Differential includes Infectious GN (complements pending) vs AIN (Urine Eos negative) vs Pre-renal azotemia. Obstruction ruled out by CT scan So far improvement with IVF support; No indication for renal replacement; Patient wants to establish f/u with [facility]. She had seen a variety of nephrologists in the past at [facility] [place], but she felt uncomfortable with their communication and follow up. Dr Tom had provided her with f/u instructions Time Spent With Patient Time: Total time spent is greater than 50% in coordination of care (as documented) at patient's floor/unit and/or counseling patient: Progress Note: Quality Stroke Does the patient have a stroke diagnosis?: No
[2022-09-14 11:29] VITALS: BP 133/60; PULSE 84; RESP 18; TEMP 36.6; O2SAT 95
--- NOTE | 2022-09-14 11:33 | MHC.CM.PN ---
pt to be dcd today at [facility] at 2
--- NOTE | 2022-09-14 11:35 | MHC.CM.PN ---
message left for notifying of dc
[2022-09-14 11:57] LABS: COVID-19 Test Negative (Negative); IDNOW Serial# 9DB6401D
--- NOTE | 2022-09-14 11:59 | PM.DS ---
DS: Providers Provider Date of Service: 09/14/22 Date of admission: 09/09/22 23:27 Primary care physician: Unknown Physician Consults: 09/09/22 23:26 Consult to Gastroenterology Routine Consulting Provider: Gaby Fragoso Reason for consultation: Positive occult stool- anemia Has provider been notified: No Consult to Obstetrics / Gynecology Routine Consulting Provider: Cyril Haley Reason for consultation: Vaginal bleed Has provider been notified: Yes 09/10/22 06:38 Consult to Infectious Diseases Routine Consulting Provider: Deyanira Mckay Reason for consultation: Osteomyelitis- treated op Has provider been notified: No 09/10/22 07:52 Consult to Infectious Diseases Routine Consulting Provider: Deyanira Mckay Reason for consultation: PATIENT DISCHARGED FROM [facility] ON IT OUTPATIENT 09/10/22 08:17 Consult to Nephrology Routine Consulting Provider: Lloyd Conroy Reason for consultation: LATISHA, Question CKD Hx? for eval and rec. 09/13/22 13:51 Consult to Orthopedics Routine Consulting Provider: Luis Quezada Reason for consultation: recent septic knee post surgery, for wound eval and [place] removal. DS: Diagnosis Discharge Diagnosis (1) Acute kidney injury superimposed on CKD: Status: Acute (2) MRSA bacteremia: Status: Acute (3) Heartburn: Status: Acute (4) Peptic ulcer: Status: Acute (5) Positive occult stool blood test: Status: Acute (6) Postmenopausal bleeding: Status: Acute DS: Summary Hospital Course Hospital Course: Admission note HPI 67-year-old female with past medical history of acute on chronic osteomyelitis currently on daptomycin, hypertension, hypothyroidism, mood disorder, who comes from residential for evaluation of bleeding.? Patient reports that she was discharged from [facility] after being managed for osteomyelitis to rehab to complete her IV antibiotics as well as give physical therapy as she has been very weak and nonambulatory due to prolonged hospital stay.? She reports that she was complaining of significant constipation and therefore she was given lactulose.? She states that after given lactulose she had multiple episodes of incontinence, she is wheelchair bound therefore she started having stools while she is sitting in her wheelchair, she was covered in feces all the time, the nurses were trying to wipe her and then there was notice of blood.? She reports that she felt that the bleeding was from the vagina, she is unaware of any blood per rectum.? She reports abdominal cramping that has improved 2 days after receiving the lactulose.? She has had nausea, low appetite.? She has not been drinking and eating well for the past 2 days.? She also reports that ever since they discharged her from [facility] they gave her 60 mg of Lasix b.i.d. for management of lower extremity edema.? She reports no history of CHF. She has been taking 60 mg of Lasix b.i.d. for the past several days. At this time she denies any headache, no change in vision, no chest pain, no urinary symptoms, no lower extremity edema. On arrival to the ED patient hemodynamically stable with slightly low BP P of 90 8/42, improved with IV fluids, labs are significant for WBC count of 9.4, hemoglobin of 9.6 with a baseline around 10 and 29 in August from results obtained from residential, creatinine of 6.63 with a baseline around 3.5, - of note patient reports no history of CKD ALT of 34, alk-phos of 181, stool occult positive Patient's pelvic transvaginal ultrasound shows endometrial measure of 0.9 cm in thickness, Pelvic abdominal CT shows hepato splenomegaly, otherwise no significant abnormality Hospital course The patient was admitted for reported evidence of vaginal bleeding. Found to have acute kidney injury at time of presentation. # acute kidney injury normal baseline before, peaked at 6.4 in 08/16 while in [facility] And was treated with Lasix and a mild at the residential for lower extremity edema ending up with Latisha I on CKD. Creatinine of 5.8 at time of presentation trended down to 2.2 at the day of discharge as she was treated with holding nephrotoxic medications and using IV fluids as Nephrology team monitored her closely during the hospital stay. Still Pending Electropheresis, immunofixation, C3,C4, Urine lytes. To be followed by Nephrology as outpatient after repeating BMP. # vaginal bleeding Hemoglobin remained stable with no drop. Ultrasound showed thickened endometrium of almost 1 cm. ?Dr Haley did pelvic exam and had biopsies done pending final pathology. suggested hysteroscopy but the patient refusing at this point to do any procedures. Asked to follow with gynecology as outpatient if bleeding is recurrence or if she change her mind and want further investigation. # peptic ulcer disease The patient was found to have positive occult stool blood test. No major drop in hemoglobin. Evaluated by gastroenterology team who did an EGD showing evidence of gastric and peptic ulcer. Patient does not want to do Colonoscopy. GI recommended omeprazole twice daily and to discontinue diclofenac for now. # Hx MRSA Bacteremia 2/2 septic knee Diagnosed while in [facility] [place] on Daptomycin currently renally adjusted dose. Seen by ID who recommended to Continue treatment with daptomycin until 10/03. wound care to follow Continue omeprazole 20 mg twice daily Hold diclofenac for now until repeat kidney function, restart 1 tablet daily and monitor kidney function closely Continue daptomycin treatment as planned until 10/03 To recheck kidney function next week To follow-up with Nephrology as outpatient To follow-up with Dr. Haley from Gynecology for further workup of vaginal bleeding if recurrent Time Spent with Patient Time attestation: Total time spent providing and/or coordinating discharge services: Discharge coordination time: Greater than 30 minutes Quality: Safe Use of Opioids Does Pt have an Active Cancer Diagnosis on the Problem List?: No Quality: Stroke Does the patient have a stroke diagnosis?: No Physical Exam Vital Signs: Vital Signs: Last Vital Signs Temp 97.8 F 09/14/22 11:29 Pulse 84 09/14/22 11:29 Resp 18 09/14/22 11:29 BP 133/60 09/14/22 11:29 Pulse Ox 95 09/14/22 11:29 O2 Del Method 09/14/22 11:29 O2 Flow Rate 4 09/13/22 17:46 BMI result Body Mass Index 62.6 Const: Other: Constitutional : Awake, interactive, obese, not in distress Neck : Normal inspection, Supple Cardiovascular : RRR, no JVP, +1 bilateral lower extremity edema Respiratory : good bilateral air entry, no crackles, wheezes or rhonchi Gastrointestinal: soft, lax, Normal bowel sounds, Non tender Skin : Warm, Dry, left calf wound covered with dressing with no erythema or drainage Neurological : Alert & oriented x3, No focal deficit DS: Data Data Completed and Pending Completed studies during hospitalization [Text1]: Pending at discharge 09/13/22 10:34 Surgical Path [Surgical] [PTH] Stat Pending studies at discharge: Pending at discharge 09/13/22 10:34 Surgical [PTH] Routine Labs on day of discharge: Laboratory Results - last 24 hr 09/10/22 09/11/22 09/14/22 Unknown 06:34 06:55 Sodium 138 Potassium 3.6 Chloride 100 Carbon Dioxide 27 Anion Gap 15 BUN 47 H Creatinine 1.73 H Estim Creat Clear Calc 45.4 Estimated GFR 30 Random Glucose 107 Calcium 8.5 U [place] Prot/Creat Ratio Cancelled Ur Creatinine mg/dL Cancelled U Total Protein mg/dL Cancelled Protein/Creatinin Ratio Cancelled Urine Albumin (%) Cancelled U Kobtv-0-Fdhuwatx (%) Cancelled U Zkyyt-3-Yyunsnut (%) Cancelled U Beta Globulin (%) Cancelled U Gamma Globulin (%) Cancelled U Abnormal Prot Band 1 Cancelled U Abnormal Prot Band 2 Cancelled U Abnormal Prot Band 3 Cancelled Urine PEP Interpret Cancelled Complement C3 169 Complement C4 70 H COVID-19 (LETTY) COVID-19 [employer] Com 09/14/22 11:17 Sodium Potassium Chloride Carbon Dioxide Anion Gap BUN Creatinine Estim Creat Clear Calc Estimated GFR Random Glucose Calcium U [place] Prot/Creat Ratio Ur Creatinine mg/dL U Total Protein mg/dL Protein/Creatinin Ratio Urine Albumin (%) U Qqyem-2-Pykwnwcb (%) U Pqlog-4-Ncxxirye (%) U Beta Globulin (%) U Gamma Globulin (%) U Abnormal Prot Band 1 U Abnormal Prot Band 2 U Abnormal Prot Band 3 Urine PEP Interpret Complement C3 Complement C4 COVID-19 (LETTY) Negative COVID-19 [facility] See Note Preliminary micro results at discharge 09/09/22 16:33 Blood Culture - Preliminary Blood - Venous No growth after 48 hours. 09/09/22 16:33 Blood Culture - Preliminary Blood - Venous No growth after [address] scan - abdomen: Radiologist's impression: ITS Impressions Abdomen/Pelvis CT 09/09/22 18:45 IMPRESSION: 1. Hepatosplenomegaly with diffusely decreased liver attenuation suggesting hepatic steatosis. Correlation with liver enzymes recommended. 2. Severe degenerative changes of the right hip with moderate degenerative changes of the left hip. Fleischner guidelines were followed. Pelvic/Transvag US 09/09/22 21:01 IMPRESSION: Endometrium measures 0.9 cm in thickness on transabdominal views. Given provided history of postmenopausal bleeding, recommend gynecologic referral and management. Right ovary was unremarkable in appearance. The left ovary was not identified sonographically. No adnexal mass. Discharge Plan Discharge Anticipated Discharge Date/Time: 09/14/22 11:52 Patient Disposition: Xfer SNF Discharge Diagnosis: Acute kidney injury Vaginal bleeding Peptic ulcer disease [facility] Physician,Unknown J [Primary Care Provider] - 1 Week Discharge Medications: New omeprazole 20 mg Capsule,Delayed Release(Dr/Ec) 20 mg PO BID Qty: 60 0RF Continued multivitamin Tablet 1 tab PO DAILY levothyroxine 175 mcg tablet 262.5 mcg PO SA@0630 levothyroxine 175 mcg tablet 175 mcg PO SUMOTUWETHFR@0630 acetaminophen 325 mg Tablet 650 mg PO Q4H PRN (Reason: pain/fever) acetaminophen 650 mg Suppository 650 mg KS Q4H PRN (Reason: pain/fever) tizanidine 2 mg Tablet 2 mg PO TID pravastatin 40 mg Tablet 40 mg PO DAILY triamcinolone acetonide 0.1 % Cream 1 appl TOPICAL BID PRN (Reason: eczema) magnesium hydroxide [Milk of Magnesia] 400 mg/5 mL Suspension 30 ml PO Q24H PRN (Reason: Constipation) meclizine 25 mg Tablet 25 mg PO BID PRN (Reason: Nausea And Vomiting) bisacodyl 10 mg Suppository 10 mg KS Q24H PRN (Reason: Constipation) indapamide 1.25 mg tablet 1 tab PO DAILY nystatin 100,000 unit/gram Powder 1 appl TOPICAL BID Rx Instructions: apply to RLQ glucagon 1 mg Recon Soln 1 mg SUBCUT Q20M PRN (Reason: bs<70 and unresponsive) Rx Instructions: until target blood sugar attained hydromorphone 4 mg Tablet 8 mg PO Q4H PRN (Reason: Pain (Scale Score 7-10)) oxybutynin chloride 5 mg Tablet 5 mg PO BID daptomycin 500 mg Recon Soln 700 mg IV Q48H Rx Instructions: administer over 30 mins duloxetine 60 mg Capsule,Delayed Release(Dr/Ec) 60 mg PO DAILY lactulose 10 gram/15 mL Solution 20 g PO Q24H PRN (Reason: Constipation) cholecalciferol (vitamin D3) 25 mcg (1,000 unit) Tablet 25 mcg PO DAILY potassium chloride 20 mEq Tablet Extended Release 20 meq PO DAILY epinephrine 1 mg/mL Kit 0.3 mg IM Q20M PRN (Reason: Allergic Symptoms) Rx Instructions: for 2 doses naloxone 4 mg/actuation [place],Non-Aerosol 4 mg INTRANASAL Q3M PRN (Reason: overdose) Rx Instructions: spray 1 dose into ONE nostril; alternate nostrils w each dose until help arrives biotin 1,000 mcg Tablet,Chewable 1,000 mcg PO DAILY magnesium oxide 400 mg magnesium Tablet 400 mg PO BEDTIME Probizen 32 billion cell Capsule 1 cap PO BID Held diclofenac sodium 75 mg Tablet,Delayed Release (Dr/Ec) 75 mg PO BID Hold Instructions: MD at [facility] can decide when to start after repeat BMP, once a day, monitor BMP Discharge Orders: Discharge Order (Routine); Ordered 09/14/22 Ordered By: Chicho Reyes Diet: Advance to usual diet Activity on Discharge: As tolerated Stand Alone Forms: Patient Portal Discharge page Other Ambulatory Orders: Basic Metabolic Panel (Routine) Timeframe: 5 Days Facility: [facility] - Location: Laboratory Ordered By: Chicho Reyes Care Plan Goals: Read below Health Concerns: Read below Plan of Treatment: Read below Assessment: You were admitted to the hospital for evaluation of acute kidney injury. Treated with holding nephrotoxic medications and IV fluid with good response over the course of hospital stay as you were monitored by kidney doctor. You were also evaluated by entertainment production professional for reported vaginal bleeding with evidence of thickened endometrium on ultrasound. Biopsies were taken and still pending. You were evaluated by Gastroenterology for positive blood with stool. An EGD was done showing an evidence of peptic ulcer that is treated with omeprazole. Daptomycin was resumed for your history of MRSA bacteremia. Continue omeprazole 20 mg twice daily Hold diclofenac for now until repeat kidney function, restart 1 tablet daily and monitor kidney function closely Continue daptomycin treatment as planned until 10/03 To recheck kidney function next week To follow-up with Nephrology as outpatient To follow-up with Dr. Haley from Gynecology for further workup of vaginal bleeding if recurrent
[2022-09-14 12:41] LABS: IgA 531 mg/dL (70-320); IgG 1420 mg/dL (600-1540); IgM 194 mg/dL (50-300)
--- NOTE | 2022-09-14 13:04 | HO.POSTANES ---
Post Anesthesia Evaluation Post Anesthesia Evaluation Vital Signs: Vital Signs Temp Pulse Resp BP Pulse Ox O2 Del Method 09/14/22 11:29 97.8 F 84 18 133/60 95 Room Air 09/14/22 07:45 97.1 F 84 18 156/70 H 95 Room Air 09/14/22 03:10 97.4 F 90 18 152/68 H 96 Room Air Anesthesia: General Mental Status: Awake Pain Control: Satisfactory Nausea/Vomiting: None Hydration: Adequate Anesthesia-Related Issues: No Anes. Related Issues
--- NOTE | 2022-09-14 14:30 | MHC.SL.SWA ---
Speech Pathologist Impression: Risk of Aspiration Due to: Dysphasia Diet Status: Continue on diet of CHOPPED/ADVANCED (NDD2) with THIN liquids, pills whole with liquid. Liquid Consistency and Strategies for Safe Swallow: Liquid Intake Recommendation: Thin Liquid Intake Strategies: Small Sips Solid Food Consistency: Dietary Recommendations: Chopped/Advanced (NDD3) Additional Modifications to Solid Foods: add sauces/gravies. Oral Medication Intake: Whole with Liquid Please contact the pharmacy regarding appropriate crushable or liquid drug formulations that are available whenever modified delivery is recommended. Compensatory Strategies and Precautions to be Taken for Safe Swallow: Sitting Upright (90 deg) Liquids from Cup Small Bites and Sips Alternate Liquids/Solids Supervision While Eating and Drinking for Safe Swallow: None Needed Foods to Avoid: Hard, difficult to chew solids Swallowing Recommended Treatments: Compens. Strategy Educat. Recommendation for Speech: Outpatient Speech Therapy Inpatient Speech Therapy Comment: Patient was seen during lunch to assess toleration of diet, re-assess swallow. Patient was eating what appeared to be thin sliced meat or Diana steak in gravy which she stated she had cut into bite size pieces. Patient noted that when she was first seen for swallow she had an extremely dry throat which had made swallowing difficult. Pt was feeling much better today, having no difficulty swallowing, found the consistency soft and easy to eat. Pt produced a mildly prolonged oral phase on bite of meat, with timely swallow noted, no clinical signs of aspiration. Patient took sips of liquid from can of diet arik alok with timely swallow, no clinical signs of aspiration. Patient noted that the chopped carrots were hard, not easy or pleasant to eat, which was the only c/o with the food. Frequency/Duration: Date Range for Service Req: Timeline to reassess: Piccoloist Clinican/Clinical Fellow: No Supervisory Statement: I have reviewed and agree with the student/clinical fellow's documentation: N/A Speech Language Pathologist: Sania Linton M.A., CCC-PIG FARMER
[2022-09-15 10:12] LABS: Prot Elec - Albumin 2.7 g/dL (3.8-4.8); Prot Elec - Alpha1 0.8 g/dL (0.2-0.3); Prot Elec - Alpha2 0.7 g/dL (0.5-0.9); Prot Elec - Beta 1 0.5 g/dL (0.4-0.6); Prot Elec - Beta 2 0.6 g/dL (0.2-0.5); Prot Elec - Gamma 1.4 g/dL (0.8-1.7); Prot Elec - Total Protein 6.7 g/dL (6.1-8.1)
== END 2022-09-14 14:35 | disposition skilled nursing facility (03) | DRG 744 ==
LOC: HO.ED 20:19 → HO.EDOVER 23:35 → HO.IMC 09-11 12:36
PROVIDERS: Internal Medicine Gastroenterology; Admitting Provider Internal Medicine; Emergency Provider Emergency Medicine; Visit Provider Student in an Organized Health Care Education/Training Program
PROC: 0DJ08ZZ Inspection of Upper Intestinal Tract, Via Natural or Artificial Opening Endoscopic (ICD-10-PCS; CPT 43235; principal; 2022-09-13 14:30)
DX: N95.0 Postmenopausal bleeding (principal); K25.4 Chronic or unspecified gastric ulcer with hemorrhage; N17.0 Acute kidney failure with tubular necrosis; L89.893 Pressure ulcer of other site, stage 3; K26.4 Chronic or unspecified duodenal ulcer with hemorrhage; Z68.44 Body mass index [BMI] 60.0-69.9, adult; R78.81 Bacteremia; E03.9 Hypothyroidism, unspecified; E66.01 Morbid (severe) obesity due to excess calories; K76.0 Fatty (change of) liver, not elsewhere classified; K21.9 Gastro-esophageal reflux disease without esophagitis; Z23 Encounter for immunization; Z20.822 Contact with and (suspected) exposure to COVID-19; B95.62 Methicillin resistant Staphylococcus aureus infection as the cause of diseases classified elsewhere; I10 Essential (primary) hypertension; Z86.14 Personal history of Methicillin resistant Staphylococcus aureus infection; Z99.3 Dependence on wheelchair; Z91.030 Bee allergy status; Z88.0 Allergy status to penicillin; Z88.2 Allergy status to sulfonamides; Z79.890 Hormone replacement therapy; Z79.899 Other long term (current) drug therapy
CPT/HCPCS: 36415; 58100; 74176; 76830; 76856; 80048; 80076; 81001; 81003; 82272; 82570; 82607; 82728; 82784; 83540; 83605; 84100; 84133; 84156; 84165; 84166; 84300; 85025; 85027; 85610; 86160; 86334; 87040; 87635; 88305; 88342; 89190; 90686; 92526; 92610; 93005; 97163; 99285; J0878; J1170; J2250; J3010

== ENCOUNTER → 2022-12-08 14:06 | Outpatient (RCR) | payer MEDICARE, MEDICAID, SELFPAY | END | disposition home or self-care (01) | LOC: HO.WCC 08-08 13:27 | PROVIDERS: PCP Internal Medicine; Visit Provider Surgery | DX: I87.312 Chronic venous hypertension (idiopathic) with ulcer of left lower extremity (principal); L97.225 Non-pressure chronic ulcer of left calf with muscle involvement without evidence of necrosis; L02.211 Cutaneous abscess of abdominal wall; I89.0 Lymphedema, not elsewhere classified; I73.00 Raynaud's syndrome without gangrene; E66.01 Morbid (severe) obesity due to excess calories; Z79.899 Other long term (current) drug therapy; Z95.828 Presence of other vascular implants and grafts; Z68.44 Body mass index [BMI] 60.0-69.9, adult | CPT/HCPCS: 11042; 11043; 11045; 11046; 17250; 29581; 87071; 87077; 87147; 87186; 87205; 97597; 97598; 99212; 99213; 99214; 99215 ==